=== PATIENT | male | born 1945 | race Caucasian/White ===

== ENCOUNTER 2018-01-01 20:30 | Emergency (ER) | payer OTHER ==
[2018-01-01] MEDS ORDERED: HYDROCODONE/APAP 10/325 TAB ONE (21:15)
--- NOTE | 2018-01-01 23:59 | ER ---
Nurse's Notes [facility] Name: Luiz Jeffery Age: 72 yrs Sex: Male : 1945 Arrival Date: 01/01/2018 Time: 20:50 Bed 28 Private MD: Diagnosis: Fracture greater tuberosity right humerus. Contusion left knee Presentation: 01/01 20:51 Presenting complaint: EMS states: Pt missed a step and fell at restaurant, landed on tl2 right arm, possible deformity of right upper arm. Pt denies hitting head or LOC. Pt AOx4. Unable to lift right arm due to pain. Care prior to arrival: None. Mechanism of Injury: Fall from standing position. Trauma event details: Injury occurred in the [facility]. 20:51 Acuity: EMELINA 3 tl2 20:51 Method Of Arrival: EMS: [facility] tl2 20:59 Transition of care: patient was not received from another setting of care. Onset of tl2 symptoms was January 01, 2018 at 20:30. Historical: - Allergies: 20:57 No Known Allergies; tl2 - Home Meds: 20:57 Aspirin Oral [Active]; Furosemide Oral [Active]; pantoprazole Oral [Active]; Potassium tl2 Chloride Oral [Active]; Simvastatin Oral [Active]; Spiriva with HandiHaler inhalation [Active]; Spironolactone Oral [Active]; - PMHx: 20:57 COPD; esophageal cancer; CHF; tl2 - Immunization history: Last tetanus immunization: < 5 years ago. - Social history:: Smoking status: Patient/guardian denies using tobacco, the patient reports quitting approximately 4 years ago. Screenin:57 Abuse screen: Denies threats or abuse. Nutritional screening: No deficits noted. tl2 Tuberculosis screening: No symptoms or risk factors identified. Fall risk At risk due to injury. 20:57 Fall Risk Fall in past 12 months (25 points). tl2 Primary Survey: 20:57 A: Airway: patent. Breathing/Chest: Respiratory pattern: regular, Respiratory effort: tl2 spontaneous, unlabored, Breath sounds: clear, bilaterally. Chest inspection: symmetrical rise and fall of the chest. Circulation: Heart tones present. Skin color: pink. Disability Alert. 21:50 Reassessment Airway Airway Patent Breathing/Chest Respiratory pattern Regular tl2 Respiratory effort Spontaneous Unlabored Circulation Heart tones Present Disability Alert. Secondary Survey: 20:57 HEENT: No deficits noted. Gastrointestinal: No deficits noted. : No deficits noted. tl2 Musculoskeletal: Circulation, motion, and sensation intact. Bony deformity noted of right tricep. Assessment: 20:51 General: Appears in no apparent distress. uncomfortable, Behavior is calm, cooperative, tl2 appropriate for age. Pain: Complains of pain in right tricep Pain currently is 8 out of 10 on a pain scale. Quality of pain is described as aching, Aggravated by increased activity. Neuro: Level of Consciousness is awake, alert, obeys commands, Oriented to person, place, time, situation. Cardiovascular: Denies chest pain. Respiratory: Airway is patent Respiratory effort is even, unlabored, Respiratory pattern is regular, symmetrical. GI: No signs and/or symptoms were reported involving the gastrointestinal system. : No signs and/or symptoms were reported regarding the genitourinary system. Musculoskeletal: Circulation, motion, and sensation intact. Range of motion: limited in right shoulder. Injury Description: Deformity sustained to right tricep is concave. 22:04 Reassessment: Patient appears in no apparent distress at this time. Patient and/or tl2 family updated on plan of care and expected duration. Pain level reassessed. Patient is alert, oriented x 3, equal unlabored respirations, skin warm/dry/pink. 23:13 Reassessment: Patient appears in no apparent distress at this time. Patient and/or tl2 family updated on plan of care and expected duration. Pain level reassessed. Patient is alert, oriented x 3, equal unlabored respirations, skin warm/dry/pink. awaiting further orders. 01/02 00:14 Reassessment: Pt preferred sling to shoulder immobilizer. notified. tl2 00:34 Reassessment: Patient appears in no apparent distress at this time. Patient and/or tl2 family updated on plan of care and expected duration. Pain level reassessed. Patient is alert, oriented x 3, equal unlabored respirations, skin warm/dry/pink. Pt and family verbalized understanding of discharge instructions, need for follow up and prescription usage. Vital Signs: 01/01 20:57 BP 140 / 93; Pulse 76; Resp 18; Temp 98.4(O); Pulse Ox 97% on 3 lpm NC; Weight 108.86 tl2 kg; Height 5 ft. 7 in. (170.18 cm); Pain 8/10; 22:05 BP 114 / 73; Pulse 85; Resp 18; Pulse Ox 96% on 3 lpm NC; tl2 23:13 BP 121 / 77; Pulse 77; Resp 18; Pulse Ox 95% on 3 lpm NC; tl2 01/02 00:15 BP 118 / 83; Pulse 77; Resp 18; Pulse Ox 95% on 3 lpm NC; tl2 01/01 20:57 Body Mass Index 37.59 (108.86 kg, 170.18 cm) tl2 [place] Coma Score: 01/01 20:57 Eye Response: spontaneous(4). Verbal Response: oriented(5). Motor Response: obeys tl2 commands(6). Total: 15. 22:05 Eye Response: spontaneous(4). Verbal Response: oriented(5). Motor Response: obeys tl2 commands(6). Total: 15. Trauma Score (Adult): 20:57 Eye Response: spontaneous(1); Verbal Response: oriented(1); Motor Response: obeys tl2 commands(2); Systolic BP: > 89 mm Hg(4); Respiratory Rate: 10 to 29 per min(4); Talisha Score: 15; Trauma Score: 12 22:05 Eye Response: spontaneous(1); Verbal Response: oriented(1); Motor Response: obeys tl2 commands(2); Systolic BP: > 89 mm Hg(4); Respiratory Rate: 10 to 29 per min(4); Talisha Score: 15; Trauma Score: 12 ED Course: 20:50 Patient arrived in ED. tl2 20:50 Yelena Solorzano RN is Primary Nurse. tl2 20:53 Triage completed. tl2 20:55 Sam Wu MD is Attending Physician. pkl 20:57 Patient has correct armband on for positive identification. Placed in gown. Bed in low tl2 position. Call light in reach. Side rails up X2. Adult w/ patient. Oxygen administration via nasal cannula \T\ 3L/min. 20:57 Arm band placed on right wrist. tl2 20:57 Oxygen administration via nasal cannula \T\ 3L/min. tl2 21:00 Thermoregulation: warm blanket given to patient. tl2 21:52 X-ray completed. Portable x-ray completed in exam room. Patient tolerated procedure la2 well. 21:54 Shoulder Right (2 View) XRAY In Process Unspecified. EDMS 21:54 Knee Left 3 View XRAY In Process Unspecified. EDMS 22:54 Shoulder Right Wo Cont In Process Unspecified. EDMS 01/02 00:34 No provider procedures requiring assistance completed. Patient did not have IV access tl2 during this emergency room visit. Administered Medications: 01/01 21:00 Drug: [place] 10 mg-325 mg 1 tabs {Note: administered by Anamika Pardo RN.} Route: PO; tl2 22:00 Follow up: Response: No adverse reaction; Pain is decreased tl2 Intake: 01/02 00:36 PO: 0ml; Total: 0ml. tl2 Outcome: 01/01 23:59 Discharge ordered by . mell 01/02 00:34 Discharged to home via wheelchair, with family. tl2 Condition: stable Discharge instructions given to patient, family, Instructed on discharge instructions, follow up and referral plans. no driving heavy equipment, medication usage, Demonstrated understanding of instructions, follow-up care, medications, Prescriptions given X 1. 00:36 Patient's length of stay in the Emergency Department was greater than 2 hours. tl2 Patient's length of stay was extended due to staffing issues within the emergency department. 00:38 Patient left the ED. tl2 Signatures: Dispatcher [employer] Sam Franklin MD MD pkl Knox, Taylor, RN RN tl2 Maki Huertas la2
--- NOTE | 2018-01-01 23:59 | EDPHYS ---
Physician Documentation [facility] Name: Luiz Jeffery Age: 72 yrs Sex: Male : 1945 Arrival Date: 01/01/2018 Time: 20:50 Bed 28 Private MD: ED Physician Sam Wu HPI: 01/01 21:03 This 72 yrs old Male presents to ER via EMS with complaints of Fall Injury. pkl 21:03 Details of fall: The patient fell from an upright position, while walking. Onset: The pkl symptoms/episode began/occurred just prior to arrival. Associated injuries: The patient sustained right shoulder, left knee, abrasion, contusion, painful injury. Historical: - Allergies: 20:57 No Known Allergies; tl2 - Home Meds: 20:57 Aspirin Oral [Active]; Furosemide Oral [Active]; pantoprazole Oral [Active]; Potassium tl2 Chloride Oral [Active]; Simvastatin Oral [Active]; Spiriva with HandiHaler inhalation [Active]; Spironolactone Oral [Active]; - PMHx: 20:57 COPD; esophageal cancer; CHF; tl2 - Immunization history: Last tetanus immunization: < 5 years ago. - Social history:: Smoking status: Patient/guardian denies using tobacco, the patient reports quitting approximately 4 years ago. ROS: 21:03 Eyes: Negative for injury, pain, redness, and discharge, ENT: Negative for injury, pkl pain, and discharge, Neck: Negative for injury, pain, and swelling, Cardiovascular: Negative for chest pain, palpitations, and edema, Respiratory: Negative for shortness of breath, cough, wheezing, and pleuritic chest pain, Abdomen/GI: Negative for abdominal pain, nausea, vomiting, diarrhea, and constipation, Back: Negative for injury and pain, : Negative for injury, bleeding, discharge, and swelling, Neuro: Negative for headache, weakness, numbness, tingling, and seizure. 21:03 MS/extremity: Positive for contusion, pain, tenderness, of the right shoulder, pain and abrasion left knee. Exam: 21:03 Head/Face: Normocephalic, atraumatic. Eyes: Pupils equal round and reactive to light, pkl extra-ocular motions intact. Lids and lashes normal. Conjunctiva and sclera are non-icteric and not injected. Cornea within normal limits. Periorbital areas with no swelling, redness, or edema. ENT: Nares patent. No nasal discharge, no septal abnormalities noted. Tympanic membranes are normal and external auditory canals are clear. Oropharynx with no redness, swelling, or masses, exudates, or evidence of obstruction, uvula midline. Mucous membranes moist. Neck: Trachea midline, no thyromegaly or masses palpated, and no cervical lymphadenopathy. Supple, full range of motion without nuchal rigidity, or vertebral point tenderness. No Meningismus. Chest/axilla: Normal chest wall appearance and motion. Nontender with no deformity. No lesions are appreciated. Cardiovascular: Regular rate and rhythm with a normal S1 and S2. No gallops, murmurs, or rubs. Normal PMI, no JVD. No pulse deficits. Respiratory: Lungs have equal breath sounds bilaterally, clear to auscultation and percussion. No rales, rhonchi or wheezes noted. No increased work of breathing, no retractions or nasal flaring. Abdomen/GI: Soft, non-tender, with normal bowel sounds. No distension or tympany. No guarding or rebound. No evidence of tenderness throughout. Back: No spinal tenderness. No costovertebral tenderness. Full range of motion. Neuro: Awake and alert, GCS 15, oriented to person, place, time, and situation. Cranial nerves II-XII grossly intact. Motor strength 5/5 in all extremities. Sensory grossly intact. Cerebellar exam normal. Normal gait. 21:03 Musculoskeletal/extremity: Extremities: grossly normal except: noted in the right shoulder: pain, tenderness, noted in the left knee: contusion, pain, abrasion. Vital Signs: 20:57 BP 140 / 93; Pulse 76; Resp 18; Temp 98.4(O); Pulse Ox 97% on 3 lpm NC; Weight 108.86 tl2 kg; Height 5 ft. 7 in. (170.18 cm); Pain 8/10; 22:05 BP 114 / 73; Pulse 85; Resp 18; Pulse Ox 96% on 3 lpm NC; tl2 23:13 BP 121 / 77; Pulse 77; Resp 18; Pulse Ox 95% on 3 lpm NC; tl2 01/02 00:15 BP 118 / 83; Pulse 77; Resp 18; Pulse Ox 95% on 3 lpm NC; tl2 0331 20:57 Body Mass Index 37.59 (108.86 kg, 170.18 cm) tl2 Talisha Coma Score: 01/01 20:57 Eye Response: spontaneous(4). Verbal Response: oriented(5). Motor Response: obeys tl2 commands(6). Total: 15. 22:05 Eye Response: spontaneous(4). Verbal Response: oriented(5). Motor Response: obeys tl2 commands(6). Total: 15. Trauma Score (Adult): 20:57 Eye Response: spontaneous(1); Verbal Response: oriented(1); Motor Response: obeys tl2 commands(2); Systolic BP: > 89 mm Hg(4); Respiratory Rate: 10 to 29 per min(4); [place] Score: 15; Trauma Score: 12 22:05 Eye Response: spontaneous(1); Verbal Response: oriented(1); Motor Response: obeys tl2 commands(2); Systolic BP: > 89 mm Hg(4); Respiratory Rate: 10 to 29 per min(4); Talisha Score: 15; Trauma Score: 12 MDM: 20:55 Patient medically screened. pkl 23:56 Data reviewed: vital signs, nurses notes, radiologic studies, CT scan, plain films. pkl 01/01 21:02 Order name: Shoulder Right (2 View) XRAY pkl 01/01 21:02 Order name: Knee Left 3 View XRAY pkl 01/01 22:09 Order name: Shoulder Right Wo Cont EDMS 01/02 00:13 Order name: Sling; Complete Time: 00:15 pkl Administered Medications: 21:00 Drug: [place] 10 mg-325 mg 1 tabs {Note: administered by Anamika Pardo RN.} Route: PO; tl2 22:00 Follow up: Response: No adverse reaction; Pain is decreased tl2 Disposition: 01/01/18 23:59 Discharged to Home. Impression: Fracture greater tuberosity right humerus. Contusion left knee. - Condition is Stable. - Prescriptions for Tylenol- Codeine #3 300-30 mg Oral Tablet - take 1 tablet by ORAL route every 6 hours As needed; 30 tablet. - Medication Reconciliation Form, Thank You Letter, Antibiotic Education, Prescription Opioid Use form. - Follow up: Private Physician; When: 2 - 3 days; Reason: Re-evaluation by your physician. - Problem is new. - Symptoms have improved. Signatures: Dispatcher [employer] Sam Franklin MD MD pkAnamika Ring RN RN bb Yelena Solorzano RN RN tl2
[2018-01-02 00:50] VITALS: TEMP 98.4
[2018-01-02 00:52] VITALS: O2SAT 95
[2018-01-02 00:54] VITALS: BP 118/83
--- NOTE | 2018-01-02 08:18 | RAD REPORT ---
EXAM DESCRIPTION: CT - Shoulder Right Wo Cont - 01/02/2018 3:30 am CLINICAL HISTORY: Right shoulder pain status post fall COMPARISON: X-ray on the same date TECHNIQUE: Computed axial tomography of the right shoulder was obtained with coronal and sagittal re construction performed. A preliminary report was generated by virtual radiologic in review prior to this dictation All CT scans are performed using dose optimization technique as appropriate and may include automated exposure control or mA/KV adjustment according to patient size. FINDINGS: A minimally displaced comminuted fracture involves the greater tubercle of the right humer us. The fracture extends inferiorly to involve the humeral neck. No dislocation is seen. Moderate osteoarthritis involves the acromioclavicular joint IMPRESSION: A minimally displaced comminuted fracture involves the greater tubercle of the right hum erus. The fracture extends inferiorly to involve the humeral neck.
--- NOTE | 2018-01-02 08:19 | RAD REPORT ---
EXAM DESCRIPTION: RAD - Shoulder Right 2 View - 01/01/2018 9:54 pm CLINICAL HISTORY: Right shoulder pain status post fall FINDINGS: A minimally displaced comminuted fracture involves the greater tubercle of the right humer us. The fracture extends inferiorly to involve the humeral neck. No dislocation is seen
--- NOTE | 2018-01-02 08:20 | RAD REPORT ---
EXAM DESCRIPTION: RAD - Knee Left 3 View - 01/01/2018 9:56 pm CLINICAL HISTORY: Left knee pain status post injury FINDINGS: No fracture or dislocation is seen. Moderate osteoarthritis involves the medial compartment
== END 2018-01-02 00:38 | disposition home or self-care (01) ==
LOC: ER 20:30
DX: S42.251A Displaced fracture of greater tuberosity of right humerus, initial encounter for closed fracture (principal); S80.02XA Contusion of left knee, initial encounter; I50.9 Heart failure, unspecified; J44.9 Chronic obstructive pulmonary disease, unspecified; W18.30XA Fall on same level, unspecified, initial encounter; Y93.89 Activity, other specified; Y92.511 Restaurant or cafe as the place of occurrence of the external cause
CPT/HCPCS: 73200; 99284

== ENCOUNTER 2018-03-27 05:56 | Inpatient (IN) | payer OTHER ==
[2018-03-27] MEDS ORDERED: ALBUTEROL 2.5 MG/3 ML NEB SOL ONE (06:27)
[2018-03-27] MEDS ORDERED: METHYLPREDNISOLONE 125 MG INJ ONE (06:27)
[2018-03-27] MEDS ORDERED: IPRATROPIUM BROM 0.5MG/2.5ML ONE (06:28)
[2018-03-27 06:41] LABS: Absolute Lymphocytes (CBC) 1.6 K/uL (0.7-4.9); Absolute Monocytes 0.7 K/uL (0.1-1.3); Absolute Neutrophil 12.4 K/uL (1.8-8.0); Basophils % 0.3 % (0-1.3); Eosinophils % 1.8 % (0-4.4); Hematocrit 44.9 % (39.6-49.0); Lymphocytes % 10.5 % (15.3-44.8); MCH 30.5 pg (27.0-35.0); MPV 8.6 fL (7.6-11.3); Monocytes % 4.6 % (3.3-12.3); RBC Red Blood Cell Count 4.78 M/uL (4.33-5.43)
[2018-03-27 07:00] LABS: Albumin 3.4 g/dL (3.4-5.0); Bilirubin Direct 0.1 mg/dL (0-0.2); Bilirubin Total 0.6 mg/dL (0.2-1.0); Magnesium 2.2 mg/dL (1.8-2.4); Potassium 4.1 mmol/L (3.5-5.1); Protein, Total 7.9 g/dL (6.4-8.2)
[2018-03-27 07:20] LABS: Protime INR 1.03
[2018-03-27] MEDS ORDERED: LEVALBUTEROL 1.25 MG/3 ML NEB ONE ×2 (07:43→10:11)
[2018-03-27] MEDS ORDERED: Levofloxacin500mg IV 500 MG/100 ML BAG IV ONE (07:43)
[2018-03-27] MEDS ORDERED: PANTOPRAZOLE 40 MG INJ ONE (09:05)
[2018-03-27] MEDS ORDERED: ACETAMINOPHEN 325 MG TABLET ONE (09:05)
[2018-03-27] MEDS ORDERED: NA CHLORIDE 0.9% 1,000 ML ONE (09:05)
--- NOTE | 2018-03-27 09:05 | EDPHYS ---
Physician Documentation [facility] Name: Luiz Jeffery Age: 72 yrs Sex: Male : 1945 Arrival Date: 03/27/2018 Time: 05:57 Bed 6 Private MD: Jean Claude Foster ED Physician Chad Baird HPI: 03/27 06:00 This 72 yrs old Male presents to ER via Unassigned with complaints of ps1 Breathing Difficulty. 06:00 hx of COPD, CHF, Afib BIBEMS 2/2 BLANCA. x2 [employer]ES. SPO2 65% RA. + ASA - NOAC. Refused ps1 BiPap. Perioral cyanosis. - fever + cough- non productive. Historical: - Allergies: 06:16 No Known Allergies; aa1 - Home Meds: 06:16 Aspirin Oral [Active]; Furosemide Oral [Active]; pantoprazole Oral [Active]; Potassium aa1 Chloride Oral [Active]; Spiriva with HandiHaler inhalation [Active]; Spironolactone Oral [Active]; - PMHx: 06:16 CHF; COPD; esophageal cancer; aa1 - Immunization history:: Flu vaccine is up to date. - Social history:: Smoking status: Patient/guardian denies using tobacco. - Ebola Screening: : Patient denies exposure to infectious person Patient denies travel to an Ebola-affected area in the 21 days before illness onset. ROS: 06:00 Constitutional: Negative for fever, chills, and weight loss, Eyes: Negative for injury, ps1 pain, redness, and discharge, Abdomen/GI: Negative for abdominal pain, nausea, vomiting, diarrhea, and constipation, Back: Negative for injury and pain, MS/Extremity: Negative for injury and deformity, Skin: Negative for injury, rash, and discoloration, Neuro: Negative for headache, weakness, numbness, tingling, and seizure. 06:00 Cardiovascular: Positive for palpitations. 06:00 Respiratory: Positive for cough, shortness of breath, wheezing. Exam: 06:00 Constitutional: This is a well developed, well nourished patient who is awake, alert, ps1 and in no acute distress. Head/Face: Normocephalic, atraumatic. Eyes: Pupils equal round and reactive to light, extra-ocular motions intact. Lids and lashes normal. Conjunctiva and sclera are non-icteric and not injected. Abdomen/GI: Soft, non-tender, with normal bowel sounds. No distension or tympany. No guarding or rebound. No evidence of tenderness throughout. MS/ Extremity: Pulses equal, no cyanosis. Neurovascular intact. Full, normal range of motion. Neuro: Awake and alert, GCS 15, oriented to person, place, time, and situation. Cranial nerves II-XII grossly intact. Sensory grossly intact. 06:00 Chest/axilla: Inspection: normal, Palpation: is normal. 06:00 Cardiovascular: Rate: tachycardic, Rhythm: irregular, Pulses: no pulse deficits are appreciated. 06:00 Respiratory: moderate respiratory distress is noted, Respirations: labored breathing, Breath sounds: wheezing: expiratory tachypnea. Vital Signs: 05:55 BP 135 / 97; Pulse 126; Resp 48; Pulse Ox 66% on R/A; Weight 108.86 kg; Height 5 ft. 7 aa1 in. (170.18 cm); Pain 0/10; 05:59 Pulse Ox 94% on Non-rebreather mask; aa1 06:17 BP 125 / 74; Pulse 117; Resp 32; Temp 101.2(O); Pulse Ox 96% on Non-rebreather mask; aa1 06:39 BP 100 / 56; Pulse 119; Resp 26; Pulse Ox 94% on Nebulizer Mask; tl2 07:14 BP 132 / 100; Pulse 120; Resp 25; Pulse Ox 93% on Nebulizer Mask; hj 07:28 BP 111 / 75; Pulse 122; Resp 24; Pulse Ox 92% on 3 lpm NC; hj 07:46 BP 115 / 75; Pulse 123; Resp 25; Pulse Ox 94% on Nebulizer Mask; hj 08:29 BP 123 / 82; Pulse 118; Resp 25; Pulse Ox 93% on 3 lpm NC; hj 09:12 BP 100 / 69; Pulse 113; Resp 22; Pulse Ox 95% on 3 lpm NC; hj 10:42 BP 110 / 70; Pulse 117; Resp 22; Pulse Ox 95% on 3 lpm NC; hj 10:58 BP 115 / 58; Pulse 114; Resp 20; Temp 98.4(O); Pulse Ox 95% on 3 lpm NC; hj 05:55 Body Mass Index 37.59 (108.86 kg, 170.18 cm) aa1 MDM: 06:09 Patient medically screened. ps1 09:11 Data reviewed: vital signs, nurses notes, lab test result(s), EKG, radiologic studies, [facility] CT scan, plain films. 03/27 06:37 Order name: Basic Metabolic Panel; Complete Time: 07:03 EDMS 03/27 06:37 Order name: Liver (Hepatic) Function; Complete Time: 07:03 EDMS 03/27 06:37 Order name: Magnesium; Complete Time: 07:03 EDDC 03/27 06:37 Order name: Troponin (Emerg Dept Use Only); Complete Time: 07:07 EDMS 03/27 06:37 Order name: CBC with Automated Diff; Complete Time: 07:22 EDDC 03/27 06:37 Order name: Protime (+INR); Complete Time: 07:38 EDDC 03/27 07:23 Order name: Blood Culture Adult (2) [facility] 03/27 07:23 Order name: Lactate; Complete Time: 08:56 [facility] 03/27 07:23 Order name: CXR XRAY; Complete Time: 10:02 [facility] 03/27 08:50 Order name: Basic Metabolic Panel [facility] 03/27 08:50 Order name: CBC with Diff [facility] 03/27 08:50 Order name: Ckmb [facility] 03/27 08:50 Order name: CPK [facility] 03/27 08:50 Order name: LFT's [facility] 03/27 08:50 Order name: Magnesium [facility] 03/27 08:50 Order name: PT-INR [facility] 03/27 08:50 Order name: Ptt, Activated [facility] 03/27 08:50 Order name: Troponin (emerg Dept Use Only) [facility] 03/27 08:50 Order name: Lipase [facility] 03/27 08:54 Order name: CT Chest, Abdomen, Pelvis - W/Contrast: iv no oral; Complete Time: 09:50 [facility] 03/27 08:54 Order name: Flu [facility] 03/27 08:54 Order name: BNP [facility] 03/27 09:11 Order name: Echo with Doppler [facility] 03/27 06:07 Order name: EKG; Complete Time: 07:00 [facility] 03/27 06:07 Order name: Cardiac monitoring; Complete Time: 06:13 [facility] 03/27 06:07 Order name: EKG - Nurse/Tech; Complete Time: 06:13 [facility] 03/27 06:07 Order name: IV Saline Lock; Complete Time: 06:13 ps1 03/27 06:07 Order name: Labs collected and sent; Complete Time: 06:13 ps1 03/27 06:07 Order name: O2 Per Protocol; Complete Time: 06:13 ps1 03/27 06:07 Order name: O2 Sat Monitoring; Complete Time: 06:13 ps1 03/27 07:36 Order name: Labs - recollect needed; Complete Time: 08:14 bd 03/27 09:11 Order name: CONS Physician Consult EDMS EC:11 Rate is 120 beats/min. Rhythm is regular. QRS [place] is Normal. MT interval is prolonged ps1 at 164 msec. QRS interval is normal. QT interval is normal. No Q waves. T waves are Normal. No ST changes noted. Clinical impression: Sinus tachycardia and PVC. Interpreted by me. Administered Medications: 06:32 Drug: SOLU-Medrol 125 mg Route: IVP; Site: left antecubital; tl2 07:24 Follow up: Response: No adverse reaction hj 06:32 Drug: DuoNeb (3:1) (2.5 mg - 0.5 mg) 3 ml Route: Nebulizer; tl2 07:23 Follow up: Response: No adverse reaction hj 07:40 Drug: Xopenex 2.5 mg Route: Inhalation; hj 08:14 Drug: levofloxacin 500 mg Volume: 100 ml; Route: IVPB; Infused Over: 60 mins; Site: hj left antecubital; 10:44 Follow up: IV Status: Completed infusion hj 08:55 CANCELLED (Duplicate Order): NS 0.9% 500 ml IV at bolus once gina 09:01 Drug: ProTONIX 40 mg Route: IVP; Site: left hand; hj 09:14 Follow up: Response: No adverse reaction hj 09:01 Drug: Tylenol 650 mg Route: PO; hj 09:14 Follow up: Response: No adverse reaction; Pain is decreased hj 09:01 Drug: NS 0.9% 1000 ml Route: IV; Rate: 125 ml/hr; Site: left hand; hj 09:13 Follow up: IV Status: Infusion continued upon admission hj 10:03 Drug: Xopenex 2.5 mg Route: Inhalation; Disposition: 03/27/18 09:04 Hospitalization ordered by Luz aLnd for Inpatient Admission. Preliminary diagnosis are Dyspnea, Chronic obstructive pulmonary disease with (acute) exacerbation, Fever, unspecified, Hypoxemia, Pneumonia due to other specified bacteria. - Bed requested for Telemetry/MedSurg (Inpatient). - Status is Inpatient Admission. - Condition is Fair. - Problem is new. - Symptoms have improved. UTI on Admission? No Signatures: Dispatcher [employer] EDDC Elizabeth Wilks Allyson Blue, RN RN Diandra Pro RN RN aa1 Chad Baird MD MD cha Joaquin, Henry, RN RN hj Knox, Taylor RN RN tl2 Jonathan English MD MD ps1 Corrections: (The following items were deleted from the chart) 07:36 07:00 CBC+H.LAB.BRZ ordered. EDMS EDMS 07:36 07:00 PROTIME (+INR)+COAG.LAB.BRZ ordered. EDDC EDMS 07:37 07:00 BASIC METABOLIC PANEL+C.LAB.BRZ ordered. EDDC EDDC 07:37 07:00 HEPATIC FUNCTION+C.LAB.BRZ ordered. EDDC EDMS 07:37 07:00 MAGNESIUM+C.LAB.BRZ ordered. EDDC EDMS 07:37 07:00 TROPONIN (EMERG DEPT USE ONLY)+C.LAB.BRZ ordered. EDDC EDDC 08:55 08:55 NS 0.9% 500 ml IV at bolus once ordered. gina gina 10:40 09:04 Hospitalization Ordered by Luz Land MD for Inpatient Admission. Preliminary dw diagnosis is Dyspnea; Chronic obstructive pulmonary disease with (acute) exacerbation; Fever, unspecified; Hypoxemia; Pneumonia due to other specified bacteria. Bed requested for Telemetry/MedSurg (Inpatient). Status is Inpatient Admission. Condition is Fair. Problem is new. Symptoms have improved. UTI on Admission? No. gina 11:14 10:40 03/27/2018 09:04 Hospitalization Ordered by Luz Land MD for Inpatient hj Admission. Preliminary diagnosis is Dyspnea; Chronic obstructive pulmonary disease with (acute) exacerbation; Fever, unspecified; Hypoxemia; Pneumonia due to other specified bacteria. Bed requested for Telemetry/MedSurg (Inpatient). Status is Inpatient Admission. Condition is Fair. Problem is new. Symptoms have improved. UTI on Admission? No. dw
--- NOTE | 2018-03-27 09:05 | ER ---
Nurse's Notes [facility] Name: Luiz Jeffery Age: 72 yrs Sex: Male : 1945 Arrival Date: 03/27/2018 Time: 05:57 Bed 6 Private MD: Jean Claude Foster Diagnosis: Dyspnea;Chronic obstructive pulmonary disease with (acute) exacerbation;Fever, unspecified;Hypoxemia;Pneumonia due to other specified bacteria Presentation: 03/27 05:55 Presenting complaint: Patient states: SOB for past couple days but became worse today. aa1 Reports hx of COPD and has been out of his medications bc he was on vacation. Upon arrival to ED pt states he refuses to wear BiPAP while here. Transition of care: patient was not received from another setting of care. Onset of symptoms was March 24, 2018. Risk Assessment: Do you want to hurt yourself or someone else? Patient reports no desire to harm self or others. Initial Sepsis Screen: Does the patient meet any 2 criteria? RR > 20 per min. HR > 90 bpm. Does the patient have a suspected source of infection? No. Patient's initial sepsis screen is negative. Care prior to arrival: Medication(s) given: Albuterol Neb x 2, Atrovent Neb x 2. 05:55 Method Of Arrival: EMS: [facility] aa 05:55 Acuity: EMELINA 2 aa1 Triage Assessment: 07:00 General: Appears in no apparent distress. uncomfortable, Behavior is cooperative, hj appropriate for age, anxious. Respiratory: Onset: The symptoms/episode began/occurred , the patient has severe shortness of breath. 07:00 Pain: Denies pain. EENT: No signs and/or symptoms were reported regarding the EENT hj system. Neuro: Level of Consciousness is awake, alert, obeys commands, Oriented to person, place, time, situation, Appropriate for age. Cardiovascular: Capillary refill < 3 seconds Patient's skin is warm and dry. Respiratory: Airway is patent Respiratory effort is even, unlabored, Respiratory pattern is regular, symmetrical. Respiratory: GI: No signs and/or symptoms were reported involving the gastrointestinal system. : No signs and/or symptoms were reported regarding the genitourinary system. Derm: No signs and/or symptoms reported regarding the dermatologic system. Musculoskeletal: No signs and/or symptoms reported regarding the musculoskeletal system. Historical: - Allergies: 06:16 No Known Allergies; aa1 - Home Meds: 06:16 Aspirin Oral [Active]; Furosemide Oral [Active]; pantoprazole Oral [Active]; Potassium aa1 Chloride Oral [Active]; Spiriva with HandiHaler inhalation [Active]; Spironolactone Oral [Active]; - PMHx: 06:16 CHF; COPD; esophageal cancer; aa1 - Immunization history:: Flu vaccine is up to date. - Social history:: Smoking status: Patient/guardian denies using tobacco. - Ebola Screening: : Patient denies exposure to infectious person Patient denies travel to an Ebola-affected area in the 21 days before illness onset. Screenin:00 Abuse screen: Denies threats or abuse. Denies injuries from another. Nutritional aa1 screening: No deficits noted. Tuberculosis screening: No symptoms or risk factors identified. Fall Risk None identified. Assessment: 06:00 General: Appears distressed, Behavior is appropriate for age, anxious. Pain: Denies aa1 pain. Neuro: Level of Consciousness is awake, alert, obeys commands, Oriented to person, place, time, situation, Moves all extremities. Speech is normal. Cardiovascular: Heart tones S1 S2 present Rhythm is regular. Respiratory: Reports shortness of breath at rest air hunger Airway is patent Respiratory effort is labored, gasping, Respiratory pattern is symmetrical, tachypnea Breath sounds are diminished bilaterally. GI: No signs and/or symptoms were reported involving the gastrointestinal system. : No signs and/or symptoms were reported regarding the genitourinary system. EENT: No signs and/or symptoms were reported regarding the EENT system. Derm: Skin is intact, is healthy with good turgor, Skin is pink, warm \T\ dry. Musculoskeletal: Circulation, motion, and sensation intact. Capillary refill < 3 seconds. 06:23 Reassessment: Patient appears in no apparent distress at this time. Patient states aa1 feeling better. Patient states symptoms have improved. Reassessment: Pt reports feeling much better after being placed on NRB mask. Respiratory: Respiratory effort is even, unlabored, Respiratory pattern is tachypnea. 07:00 General: Appears in no apparent distress. uncomfortable, Behavior is calm, cooperative, hj appropriate for age. Pain: Denies pain. Neuro: Level of Consciousness is awake, alert, obeys commands, Oriented to person, place, time, situation, Moves all extremities. Speech is normal. Cardiovascular: Heart tones S1 S2 present. Respiratory: Reports shortness of breath at rest Airway is patent Respiratory effort is even, labored, Respiratory pattern is regular, symmetrical. GI: No signs and/or symptoms were reported involving the gastrointestinal system. : No signs and/or symptoms were reported regarding the genitourinary system. EENT: No signs and/or symptoms were reported regarding the EENT system. Musculoskeletal: Circulation, motion, and sensation intact. Capillary refill < 3 seconds. 08:00 Reassessment: Patient and/or family updated on plan of care and expected duration. Pain hj level reassessed. Patient is alert, oriented x 3, equal unlabored respirations, skin warm/dry/pink. awaiting results and POC;. 09:12 Reassessment: Patient and/or family updated on plan of care and expected duration. Pain hj level reassessed. Patient is alert, oriented x 3, equal unlabored respirations, skin warm/dry/pink. for admit;. 10:43 Reassessment: going to 410;. hj Vital Signs: 05:55 BP 135 / 97; Pulse 126; Resp 48; Pulse Ox 66% on R/A; Weight 108.86 kg; Height 5 ft. 7 aa1 in. (170.18 cm); Pain 0/10; 05:59 Pulse Ox 94% on Non-rebreather mask; aa1 06:17 BP 125 / 74; Pulse 117; Resp 32; Temp 101.2(O); Pulse Ox 96% on Non-rebreather mask; aa1 06:39 BP 100 / 56; Pulse 119; Resp 26; Pulse Ox 94% on Nebulizer Mask; tl2 07:14 BP 132 / 100; Pulse 120; Resp 25; Pulse Ox 93% on Nebulizer Mask; hj 07:28 BP 111 / 75; Pulse 122; Resp 24; Pulse Ox 92% on 3 lpm NC; hj 07:46 BP 115 / 75; Pulse 123; Resp 25; Pulse Ox 94% on Nebulizer Mask; hj 08:29 BP 123 / 82; Pulse 118; Resp 25; Pulse Ox 93% on 3 lpm NC; hj 09:12 BP 100 / 69; Pulse 113; Resp 22; Pulse Ox 95% on 3 lpm NC; hj 10:42 BP 110 / 70; Pulse 117; Resp 22; Pulse Ox 95% on 3 lpm NC; hj 10:58 BP 115 / 58; Pulse 114; Resp 20; Temp 98.4(O); Pulse Ox 95% on 3 lpm NC; hj 05:55 Body Mass Index 37.59 (108.86 kg, 170.18 cm) aa1 ED Course: 05:55 Arm band placed on right wrist. Patient placed in an exam room, on a stretcher. aa1 05:56 Oxygen administration via non-rebreather mask \T\ 15L/min Response to oxygen therapy: aa1 symptoms improved. 05:57 Patient arrived in ED. ds1 05:57 Jean Claude Foster MD is Private Physician. ds1 06:00 Jonathan English MD is Attending Physician. ps1 06:00 Patient has correct armband on for positive identification. Placed in gown. Bed in low aa1 position. Call light in reach. Side rails up X2. classroom monitor on. Pulse ox on. NIBP on. 06:06 Triage completed. aa1 06:14 Inserted saline lock: 22 gauge in left antecubital area, using aseptic technique. Blood tl2 collected. 07:11 Hernando Hernandez RN is Primary Nurse. hj 07:37 Attending Physician role handed off by Jonathan English MD gina 07:37 Chad Baird MD is Attending Physician. gina 07:47 X-ray completed. Portable x-ray completed in exam room. Patient tolerated procedure la2 well. 07:48 CXR XRAY In Process Unspecified. EDMS 08:08 First set of blood cultures drawn Second set of blood cultures drawn by nd. ag 08:20 Inserted saline lock: 22 gauge in left hand, using aseptic technique. hj 08:39 Missed attempt(s): 20 gauge in right antecubital area. Bleeding controlled, band aid ag applied, catheter tip intact. 09:00 Luz Land MD is Hospitalizing Provider. gina 09:22 CT completed. Patient moved to CT via stretcher. Patient moved back from CT. cw1 09:24 CT Chest, Abdomen, Pelvis - W/Contrast: iv no oral In Process Unspecified. EDMS Administered Medications: 06:32 Drug: SOLU-Medrol 125 mg Route: IVP; Site: left antecubital; tl2 07:24 Follow up: Response: No adverse reaction hj 06:32 Drug: DuoNeb (3:1) (2.5 mg - 0.5 mg) 3 ml Route: Nebulizer; tl2 07:23 Follow up: Response: No adverse reaction hj 07:40 Drug: Xopenex 2.5 mg Route: Inhalation; hj 08:14 Drug: levofloxacin 500 mg Volume: 100 ml; Route: IVPB; Infused Over: 60 mins; Site: hj left antecubital; 10:44 Follow up: IV Status: Completed infusion hj 08:55 CANCELLED (Duplicate Order): NS 0.9% 500 ml IV at bolus once gina 09:01 Drug: ProTONIX 40 mg Route: IVP; Site: left hand; hj 09:14 Follow up: Response: No adverse reaction hj 09:01 Drug: Tylenol 650 mg Route: PO; hj 09:14 Follow up: Response: No adverse reaction; Pain is decreased hj 09:01 Drug: NS 0.9% 1000 ml Route: IV; Rate: 125 ml/hr; Site: left hand; hj 09:13 Follow up: IV Status: Infusion continued upon admission hj 10:03 Drug: Xopenex 2.5 mg Route: Inhalation; Outcome: 09:04 Decision to Hospitalize by Provider. [facility] 11:14 Patient left the ED. Signatures: Dispatcher [employer] EDDiandra Dye RN RN aa1 Chad Baird MD MD cha Sanford, Demi ds1 Janie Mendoza cw1 Demetrice Gardner Henry, RN RN Yelena Solorzano RN RN tl2 Maki Huertas Phillip, MD MD ps1
--- NOTE | 2018-03-27 09:45 | RAD REPORT ---
EXAM DESCRIPTION: CT - Chest Abdomen Pelvis W Cont - 03/27/2018 9:24 am CLINICAL HISTORY: Cough, shortness of breath, abdominal pain, esophageal carcinoma history, COPD and CHF history COMPARISON: Chest films same date TECHNIQUE: Following dynamic enhancement using 100 milliliters nonionic IV contrast, axial imaging o f the chest, abdomen and pelvis was performed. Biphasic technique was utilized through the abdomen. Oral contrast was administered. All CT scans are performed using dose optimization technique as appropriate and may include automated exposure control or mA/KV adjustment according to patient size. FINDINGS: Extensive interstitial thickening is present. In a patient with COPD this is most likely f ibrosis. Numerous bulla and bleb noted in the upper lung pratt. Interstitial markings are slightly m ore pronounced in the lower left lung field. Trace amounts of alveolar opacification present. Early l eft lung base pneumonia cannot be excluded. No pleural effusion, pleural thickening or pneumothorax. No significant aortic or pulmonary arterial tree finding. Mediastinal and hilar regions show no mass or abnormal lymphadenopathy. Small lymph nodes present are probably reactive. No chest wall mass or a xillary lymphadenopathy. Esophagus is not grossly abnormal. Patient has a moderately large hiatal her nori. This contains mostly fat. Approximately 20% of the stomach is intrathoracic. This is possibly a postsurgical affect if the distal esophagus has been partially resected. Surgical history for the pat ient is unknown. Active process near the GE junction is not seen. The liver, spleen and pancreas show no suspicious findings. Small liver cyst present near the gallbla dder fossa. At least 1 gallstone is present near the neck. No active gall bladder process suspected. Biliary tree is normal. Atrophy or fatty infiltration of the pancreatic parenchyma is present. No per ipancreatic stranding. Symmetric renal function is seen with no mass or hydronephrosis. No adrenal abnormalities. No pyelone phritis or acute renal parenchymal process. Lateral upper pole right renal cyst is present at 3.7 cm. A large exophytic lower pole left renal cyst is present 12 cm in diameter. No suspicious characteris tics. Partially filled urinary bladder shows no suspicious finding. Prostate gland and seminal vesicl es show no suspicious findings. No gastric wall thickening or mass identifiable. No acute large or small bowel finding. No appendicit is. Minimal diverticulosis seen in the tortuous and redundant sigmoid colon. No active GI process see n. No free air, free fluid or inflammatory stranding. No mass or bulky lymphadenopathy. A 2 centimeter f at only umbilical hernia is present. Small fat only left inguinal hernia present. Disc and bony degenerative changes are present. No acute or destructive bone process. Vascular calcif ications without acute finding. IMPRESSION: Prominent fibro emphysematous changes with no baseline CT for comparison. The extent of disease could mask acute infiltrate, particularly in the lower left lung field. No large mass or cons olidation. Patient has small reactive type mediastinal and hilar lymph nodes. No clearly malignant or pathologic mediastinal, hilar or lung parenchymal process. Patient has chronic abdominal and pelvic findings as detailed. No acute or active process seen.
--- NOTE | 2018-03-27 09:58 | RAD REPORT ---
EXAM DESCRIPTION: RAD - Chest Single View - 03/27/2018 7:48 am CLINICAL HISTORY: Worsening shortness of breath, COPD COMPARISON: July 2017 TECHNIQUE: AP portable chest image was obtained 0736 hours . FINDINGS: Lung volumes are low. This accentuates the patient has significant underlying interstitial lung disease. Heart and vasculature are prominent and probably increased over baseline. Mediastinum is widened by shallow inspiration, body habitus, portable technique and slight rotation. No pneumotho rax or large pleural effusion. No gross bony abnormality seen. No acute aortic findings suspected. IMPRESSION: Extensive interstitial fibrotic lung disease accentuated by shallow inspiration. Heart size and vasculature are increased slightly from the comparison. Patient has a mixed pattern. Mild CHF/ volume overload is certainly possible and the patient could cabrera ve a superimposed lower left lung field primarily interstitial pneumonia.
[2018-03-27] MEDS ORDERED: ACETAMINOPHEN 500 MG TAB PO PRN (10:12)
[2018-03-27] MEDS ORDERED: ONDANSETRON 4 MG/2 ML VIAL IV PRN (10:12)
[2018-03-27 13:14] VITALS: BMI 35.4
[2018-03-27] MEDS: LEVALBUTEROL 0.63 MG/3 ML NEB NEB SCH ×2 (13:22→19:34)
[2018-03-27] MEDS: IPRATROPIUM BROM 0.5MG/2.5ML NEB SCH ×2 (13:22→19:34)
[2018-03-27 13:33] LABS: Absolute Lymphocytes (CBC) 0.3 K/uL (0.7-4.9); Absolute Monocytes 0.2 K/uL (0.1-1.3); Absolute Neutrophil 18.6 K/uL (1.8-8.0); Hematocrit 42.4 % (39.6-49.0); Lymphocytes % 1.5 % (15.3-44.8); MCH 30.4 pg (27.0-35.0); MCV 94.5 fL (80-100); MPV 8.9 fL (7.6-11.3); Monocytes % 0.9 % (3.3-12.3); RBC Red Blood Cell Count 4.48 M/uL (4.33-5.43)
[2018-03-27 13:34] LABS: Protime INR 1.1
[2018-03-27 13:58] LABS: ALT/SGPT 20 U/L (12-78); AST/SGOT 20 U/L (15-37); Albumin 3.1 g/dL (3.4-5.0); Alkaline Phosphatase 59 U/L (45-117); BUN Blood Urea Nitrogen 19 mg/dL (7-18); Bicarbonate 17 mmol/L (21-32); Bilirubin Direct 0.2 mg/dL (0-0.2); Bilirubin Total 0.5 mg/dL (0.2-1.0); CKMB Creatine Kinase MB < 1.0 ng/mL (0.3-3.6); Creatine Phosphokinase 112 U/L (39-308); Glucose Level 342 mg/dL (74-106); Lipase 77 U/L (73-393); Magnesium 2.2 mg/dL (1.8-2.4); Potassium 3.8 mmol/L (3.5-5.1); Protein, Total 7.4 g/dL (6.4-8.2); Sodium Level 134 mmol/L (136-145)
[2018-03-27] MEDS ORDERED: BENZONATATE 100 MG CAP PO PRN (14:25)
[2018-03-27] MEDS ORDERED: POTASSIUM CL SA 10 MEQ TAB PO ONE (16:00)
--- NOTE | 2018-03-27 17:43 | P.HP ---
Certification for Inpatient Patient admitted to: Observation With expected LOS: <2 Midnights Patient will require the following post-hospital care: None Practitioner: I am a practitioner with admitting privileges, knowledge of patient current condition, hospital course, and medical plan of care. Services: Services provided to patient in accordance with Admission requirements found in Title 42 Section 412.3 of the Code of Federal Regulations Patient History Date of Service: 03/27/18 Primary Care Provider: Dr Foster. Reason for admission: SOB History of Present Illness: Patient is a 72 old male with past medical history of COPD on home oxygen, coronary artery disease status post stent hyperlipidemia, gastroesophageal reflux disease, history or cancer, anemia, atrial fibrillation, congestive heart failure hypertension who presented to the ED with shortness of breath, high fevers and chills. Patient also reports some nausea vomiting x2. He states he has some cough with scant sputum production. Patient states him and his went to [place] for vacation where patient started getting sick, however they did not seek medical attention. They return couple of day ago and last night pt started having trouble breathing. Pt has not been taking any of his medication since wednesday. Patient denies any recent ill contacts. Patient' s symptoms are constant moderate and progressively worsening. The ER his vital signs showed hypoxia with oxygen saturation level of 75%. Patient refused BiPAP however was placed on a non-rebreather mask. Patient was given nebulizer treatments his workup revealed elevated WBC count, mildly elevated LA and Creatinine was 1.30 which is around his baseline. Chest x-ray showed pneumonia Patient was referred for admission for acute on chronic respiratory distress and pneumonia Allergies No Known Allergies Allergy (Verified 03/27/18 12:09) Home Medications: Fluticasone/Salmeterol [Advair 250/50 Diskus*] 1 puff IH DAILY 03/07/14 Aspirin [Low Dose Aspirin EC] 81 mg PO DAILY 12/22/14 Pantoprazole [Protonix Tab*] 40 mg PO DAILY 12/22/14 Simvastatin 20 mg PO BEDTIME 12/22/14 Spironolactone [Aldactone] 50 mg PO DAILY 12/22/14 Fluticasone/Vilanterol [Breo Ellipta 100-25 Mcg INH] 1 puff IH DAILY 06/07/17 Furosemide 40 mg PO DAILY 06/07/17 Potassium Chloride [Klor-Con M20] 1 tab PO DAILY 06/07/17 Tiotropium [place] [Spiriva] 1 puff IH DAILY 06/07/17 Ferrous Sulfate 1 tab PO DAILY 03/27/18 Fluticasone [Flonase 50mcg Nasal [place]] 2 sprays NS DAILY 03/27/18 Ropinirole HCl [Requip*] 1 tab PO BEDTIME 03/27/18 - Past Medical/Surgical History Has patient received pneumonia vaccine in the past: Yes Diabetic: No -: CHF -: COPD -: AFIB -: HTN -: [place] -: HIGH CHOLESTEROL -: ESOPHAGEAL CANCER -: CHF, A-fib -: asbestosis -: Exploratory esophageal surgery (February 2013) -: Esophageal cancer resection (March 2013) -: Esophageal ablation (June 28, 2013) -: heart stents -: catracho cataract - Family History Father -: Heart disease, Other (see notes) Notes: Heart attack Mother -: Heart disease, Other (see notes) Notes: CHF Brother -: Heart disease Notes: [place] X2 - Social History Smoking Status: Former smoker Alcohol use: No CD- Drugs: No Caffeine use: No Place of Residence: Home Review of Systems General: As per HPI Physical Examination - Vital Signs Temperature: 97.9 F Blood Pressure: 100/62 Pulse: 93 Respirations: 20 Pulse Ox (%): 92 - Physical Exam General: Alert, In no apparent distress, Oriented x3, Acute distress HEENT: Atraumatic Neck: Supple, 2+ carotid pulse no bruit, No LAD, Without JVD or thyroid abnormality Respiratory: Normal air movement, Expiratory wheezes, Inspiratory wheezes Cardiovascular: Regular rate/rhythm, Normal S1 S2 Gastrointestinal: Normal bowel sounds, No tenderness Musculoskeletal: No tenderness Integumentary: No rashes Neurological: Normal gait, Normal speech, Normal strength at 5/5 x4 extr, Normal tone, Normal affect Lymphatics: No axilla or inguinal lymphadenopathy - Studies Laboratory Data (last 24 hrs) 03/27/18 06:10: PT 12.1, INR 1.03 03/27/18 06:10: WBC 15.0 H, Hgb 14.6, Hct 44.9, Plt Count 187 03/27/18 06:10: Sodium 137, Potassium 4.1, BUN 18, Creatinine 1.30, Glucose 169 H, Magnesium 2.2, Total Bilirubin 0.6, AST 25, ALT 22, Alkaline Phosphatase 69 03/27/18 06:07: PT Cancelled, INR Cancelled 03/27/18 06:07: WBC Cancelled, Hgb Cancelled, Hct Cancelled, Plt Count Cancelled 03/27/18 06:07: Sodium Cancelled, Potassium Cancelled, BUN Cancelled, Creatinine Cancelled, Glucose Cancelled, Magnesium Cancelled, Total Bilirubin Cancelled, AST Cancelled, ALT Cancelled, Alkaline Phosphatase Cancelled Assessment and Plan - Problems (Diagnosis) (1) COPD with acute exacerbation Current Visit: No Status: Acute Plan: acute COPD exacerbation. Most Likely PNA and noncompliance with Medication. Viral vs Bacteria PNA -Duonebs, Steroids, Oxygen for now. At home Oxygen at 3L -IV levaquin till culture results -Procal pending. -xray with possible infiltrate (2) Pneumonia Onset Date: 06/08/17 Current Visit: No Status: Acute Plan: PNA, Viral Vs Bacteria -Pending Culture for blood and Sputum -IV levaquin for now -Repeat WBC and LA pending at this time Qualifiers: Pneumonia type: due to unspecified organism (3) Pulmonary fibrosis Onset Date: 06/08/17 Current Visit: No Status: Chronic (4) CHF (congestive heart failure) Onset Date: 06/08/17 Current Visit: No Status: Chronic Qualifiers: Heart failure type: combined systolic and diastolic Heart failure chronicity: chronic Qualified Code(s): I50.42 - Chronic combined systolic ( congestive) and diastolic (congestive) heart failure (5) Coronary disease Onset Date: 06/08/17 Current Visit: No Status: Chronic Qualifiers: Coronary Disease-Associated Artery/Lesion type: [place] artery [place] vs. transplanted heart: pokagon heart Associated angina: without angina Qualified Code(s): I25.10 - Atherosclerotic heart disease of pok[place] coronary artery without angina pectoris (6) Hyperlipidemia Onset Date: 06/08/17 Current Visit: No Status: Chronic Qualifiers: Hyperlipidemia type: mixed hyperlipidemia Qualified Code(s): E78.2 - Mixed hyperlipidemia (7) Hypertension Onset Date: 06/08/17 Current Visit: No Status: Chronic Qualifiers: Hypertension type: essential hypertension Discharge Plan: Home Plan to discharge in: 48 Hours - Advance Directives Does patient have a Living Will: No Does patient have a Durable POA for Healthcare: No - Code Status/Comfort Care Code Status Assessed: Yes Critical Care: No
[2018-03-27 18:32] LABS: Blood Morphology Comment NOT SEEN (NOT SEEN); Platelet Estimate ADEQ; Urine White Blood Cell Casts OK
[2018-03-27] MEDS: ROPINIROLE HCL 0.25 MG TAB PO SCH (20:33)
[2018-03-27] MEDS: ATORVASTATIN 10 MG TAB PO SCH (20:34)
[2018-03-27] MEDS: predniSONE 20 MG TAB PO SCH (20:34)
[2018-03-27] MEDS: BENZONATATE 100 MG CAP PO PRN (20:34)
[2018-03-27 21:39] LABS: Urine Appearance CLEAR; Urine Bilirubin NEGATIVE (NEG); Urine Blood NEGATIVE (NEG); Urine Color YELLOW; Urine Glucose 3+ (NEG); Urine Protein NEGATIVE (NEG); Urine Specific Gravity >=1.030 (1.005-1.030); Urine Urobilinogen 0.2 mg/dL (0.2-1.0)
[2018-03-27 21:45] LABS: Urine Microscopic Reflex NO UMIC
[2018-03-28] MEDS: LEVALBUTEROL 0.63 MG/3 ML NEB NEB SCH ×4 (01:01→19:45)
[2018-03-28] MEDS: IPRATROPIUM BROM 0.5MG/2.5ML NEB SCH ×4 (01:01→19:45)
[2018-03-28] MEDS: BENZONATATE 100 MG CAP PO PRN ×2 (01:55→14:36)
[2018-03-28 05:00] LABS: Absolute Lymphocytes (CBC) 0.6 K/uL (0.7-4.9); Absolute Monocytes 0.5 K/uL (0.1-1.3); Absolute Neutrophil 17.5 K/uL (1.8-8.0); Basophils % 0.2 % (0-1.3); Eosinophils % 0.2 % (0-4.4); Hematocrit 38.2 % (39.6-49.0); Lymphocytes % 3.1 % (15.3-44.8); MCH 30.6 pg (27.0-35.0); MCV 93.4 fL (80-100); MPV 8.8 fL (7.6-11.3); Monocytes % 2.4 % (3.3-12.3); RBC Red Blood Cell Count 4.09 M/uL (4.33-5.43)
[2018-03-28 05:13] LABS: Bilirubin Total 0.5 mg/dL (0.2-1.0); Potassium 4.3 mmol/L (3.5-5.1); Protein, Total 6.9 g/dL (6.4-8.2)
--- NOTE | 2018-03-28 06:54 | EKG ---
Test Date: 2018-03-27 Test Time: 06:11:02 [employer] Teacher: YVETTE MEASUREMENT RESULTS: Intervals: Rate: 120 MI: 164 QRSD: 70 QT: 314 QTc: 443 Hodges: P: 5 MI: 164 QRS: -7 T: 6 INTERPRETIVE STATEMENTS: Sinus tachycardia with frequent premature ventricular complexes Inferior infarct, age undetermined Cannot rule out Anterior infarct, age undetermined Abnormal ECG Compared to ECG 06/07/2017 07:57:20 No significant changes Electronically Signed On 03-28-18 06:53:35 CDT by Mike Pacheco
[2018-03-28] MEDS ORDERED: FUROSEMIDE 20 MG/ 2ML VIAL IV ONE (09:00)
[2018-03-28] MEDS ORDERED: BENZONATATE 100 MG CAP PO SCH (09:00)
[2018-03-28] MEDS ORDERED: Levofloxacin500mg IV 500 MG/100 ML BAG IV SCH (09:00)
[2018-03-28] MEDS: predniSONE 20 MG TAB PO SCH ×2 (10:16→20:31)
[2018-03-28] MEDS: SPIRONOLACTONE 25 MG TABLET PO SCH (10:16)
[2018-03-28] MEDS: FERROUS SULFATE 325 MG TAB PO SCH (10:16)
[2018-03-28] MEDS: PANTOPRAZOLE 40MG TABLET PO SCH (10:16)
[2018-03-28] MEDS: FUROSEMIDE 40 MG TABLET PO SCH (10:17)
[2018-03-28] MEDS: ASPIRIN EC 81 MG TAB PO SCH (10:17)
--- NOTE | 2018-03-28 12:54 | P.CNS ---
Date of Consult: 03/28/18 Reason for Consult: Shortness of breath Primary Care Provider: Dr Foster. Chief Complaint: SOB History of Present Illness: Patient is well-known to me 72 years of age recently traveled to [place] became very short of breath he came back after 4 days he has some vomiting dry cough some swelling of his legs denies any fever chills chest pain and was admitted to the hospital is currently doing well compliant with these medications did not take any steroids while in [place] Allergies No Known Allergies Allergy (Verified 03/27/18 12:09) Home Medications: Fluticasone/Salmeterol [Advair 250/50 Diskus*] 1 puff IH DAILY 03/07/14 Aspirin [Low Dose Aspirin EC] 81 mg PO DAILY 12/22/14 Pantoprazole [Protonix Tab*] 40 mg PO DAILY 12/22/14 Simvastatin 20 mg PO BEDTIME 12/22/14 Spironolactone [Aldactone] 50 mg PO DAILY 12/22/14 Fluticasone/Vilanterol [Breo Ellipta 100-25 Mcg INH] 1 puff IH DAILY 06/07/17 Furosemide 40 mg PO DAILY 06/07/17 Potassium Chloride [Klor-Con M20] 1 tab PO DAILY 06/07/17 Tiotropium [place] [Spiriva] 1 puff IH DAILY 06/07/17 Ferrous Sulfate 1 tab PO DAILY 03/27/18 Fluticasone [Flonase 50mcg Nasal [place]] 2 sprays NS DAILY 03/27/18 Ropinirole HCl [Requip*] 1 tab PO BEDTIME 03/27/18 - Past Medical/Surgical History Diabetic: No -: CHF -: COPD -: AFIB -: HTN -: [place] -: HIGH CHOLESTEROL -: ESOPHAGEAL CANCER -: CHF, A-fib -: asbestosis -: Exploratory esophageal surgery (February 2013) -: Esophageal cancer resection (March 2013) -: Esophageal ablation (June 28, 2013) -: heart stents -: catracho cataract - Family History Father Medical History: Heart disease, Other (see notes) Notes: Heart attack Mother Medical History: Heart disease, Other (see notes) Notes: CHF Brother Medical History: Heart disease Notes: [place] X2 - Social History Smoking Status: Unknown if ever smoked Alcohol use: No CD- Drugs: No Caffeine use: No Place of Residence: Home Review of Systems 10-point ROS is otherwise unremarkable Physical Examination Temp Pulse Resp BP Pulse Ox 97.1 F 83 21 H 139/70 93 03/28/18 08:00 03/28/18 10:27 03/28/18 08:00 03/28/18 10:27 03/28/18 08:00 General: Alert, Oriented x3 HEENT: Atraumatic Neck: Supple Respiratory: Clear to auscultation bilaterally, Diminished Cardiovascular: No edema, Regular rate/rhythm, Normal S1 S2 Gastrointestinal: Normal bowel sounds, Soft and benign Musculoskeletal: No clubbing - Problems (1) COPD with acute exacerbation Onset Date: 03/28/18 Current Visit: Yes Status: Acute Plan: Patient is 72 years of age admitted with an acute exacerbation continue with his therapy at home is quite possible that he has an infection is white count is elevated continue with steroids antibiotics possible discharge tomorrow compliant with his CPAP and is bronchodilators at home
[2018-03-28] MEDS: ROPINIROLE HCL 0.25 MG TAB PO SCH (20:29)
[2018-03-28] MEDS: ATORVASTATIN 10 MG TAB PO SCH (20:30)
[2018-03-29] MEDS: LEVALBUTEROL 0.63 MG/3 ML NEB NEB SCH ×2 (01:32→07:37)
[2018-03-29] MEDS: IPRATROPIUM BROM 0.5MG/2.5ML NEB SCH ×2 (01:32→07:38)
[2018-03-29 04:28] LABS: Absolute Lymphocytes (CBC) 0.4 K/uL (0.7-4.9); Absolute Monocytes 0.5 K/uL (0.1-1.3); Basophils % 0.1 % (0-1.3); Hematocrit 39.3 % (39.6-49.0); Lymphocytes % 2.6 % (15.3-44.8); MCH 30.8 pg (27.0-35.0); MCV 93.3 fL (80-100); MPV 8.9 fL (7.6-11.3); Monocytes % 2.8 % (3.3-12.3); RBC Red Blood Cell Count 4.21 M/uL (4.33-5.43)
[2018-03-29 05:35] LABS: Potassium 4.7 mmol/L (3.5-5.1)
[2018-03-29 08:16] VITALS: BP 127/82; TEMP 97
[2018-03-29] MEDS ORDERED: levoFLOXacin 500 MG TAB PO SCH (09:00)
[2018-03-29] MEDS: predniSONE 20 MG TAB PO SCH (09:38)
[2018-03-29] MEDS: FUROSEMIDE 40 MG TABLET PO SCH (09:38)
[2018-03-29] MEDS: PANTOPRAZOLE 40MG TABLET PO SCH (09:39)
[2018-03-29] MEDS: SPIRONOLACTONE 25 MG TABLET PO SCH (09:39)
[2018-03-29] MEDS: ASPIRIN EC 81 MG TAB PO SCH (09:39)
[2018-03-29] MEDS: FERROUS SULFATE 325 MG TAB PO SCH (09:39)
[2018-03-29 10:05] VITALS: O2SAT 97
--- NOTE | 2018-03-29 11:15 | PN ---
Date of Progress Note: 03/29/2018 The patient feels much better today. He states that his symptoms are basically at baseline. He did have a short burst of V-tach last night shortly after coughing episode and a breathing treatment; how ever, he has been stable since. He can be discharged to continue on his usual outpatient medications . He was cleared for discharge by Pulmonology, see me in the office in a couple of days and probably we will utilize a monitor which he states he has not been on in sometime now. HR/MODL Voice ID: [id number] Report ID: [id number]
--- NOTE | 2018-03-29 12:53 | P.DS ---
Admission Date: 03/27/18 Discharge Date: 03/29/18 Primary Care Provider: Dr Foster. Disposition: ROUTINE DISCHARGE Discharge Condition: FAIR Reason for Admission: SOB - Problems (1) COPD with acute exacerbation Onset Date: 03/28/18 Status: Acute Brief History of Present Illness: Patient is well-known to me 72 years of age recently traveled to [place] became very short of breath he came back after 4 days he has some vomiting dry cough some swelling of his legs denies any fever chills chest pain and was admitted to the hospital is currently doing well compliant with these medications did not take any steroids while in [place] Hospital Course: Patient is 72 years of age admitted with worsening dyspnea he did well with conservative therapy and steroids at the time of discharge he was doing well requesting albuterol ipratropium to be faxed to the pharmacy patient's white count was mildly elevated cultures all negative he is recently traveled to [place] and deteriorated compliant with his BiPAP patient is stable to be discharged home medications reviewed the medications faxed BNP lowered to 290 to follow up with me in 2-4 weeks Vital Signs/Physical Exam: Temp Pulse Resp BP Pulse Ox 97.0 F 74 18 127/82 94 03/29/18 08:00 03/29/18 09:39 03/29/18 08:00 03/29/18 09:39 03/29/18 08:00 Laboratory Data at Discharge: WBC 16.9 K/uL (4.3-10.9) H 03/29/18 03:54 Hgb 13.0 g/dL (13.6-17.9) L 03/29/18 03:54 Hct 39.3 % (39.6-49.0) L 03/29/18 03:54 Plt Count 180 K/uL (152-406) 03/29/18 03:54 PT 13.0 SECONDS (9.5-12.5) H 03/27/18 13:08 INR 1.10 03/27/18 13:08 APTT 26.0 SECONDS (24.3-36.9) 03/27/18 13:08 Sodium 136 mmol/L (136-145) 03/29/18 03:54 Potassium 4.7 mmol/L (3.5-5.1) 03/29/18 03:54 BUN 27 mg/dL (7-18) H 03/29/18 03:54 Creatinine 1.20 mg/dL (0.55-1.3) 03/29/18 03:54 Glucose 253 mg/dL (74-106) H 03/29/18 03:54 Magnesium 2.2 mg/dL (1.8-2.4) 03/27/18 13:08 Total Bilirubin 0.5 mg/dL (0.2-1.0) 03/28/18 04:34 AST 16 U/L (15-37) 03/28/18 04:34 ALT 17 U/L (12-78) 03/28/18 04:34 Alkaline Phosphatase 51 U/L (45-117) 03/28/18 04:34 Lipase 77 U/L (73-393) 03/27/18 13:08 Home Medications: Fluticasone/Salmeterol [Advair 250/50 Diskus*] 1 puff IH DAILY 03/07/14 Aspirin [Low Dose Aspirin EC] 81 mg PO DAILY 12/22/14 Pantoprazole [Protonix Tab*] 40 mg PO DAILY 12/22/14 Simvastatin 20 mg PO BEDTIME 12/22/14 Spironolactone [Aldactone] 50 mg PO DAILY 12/22/14 Fluticasone/Vilanterol [Breo Ellipta 100-25 Mcg INH] 1 puff IH DAILY 06/07/17 Furosemide 40 mg PO DAILY 06/07/17 Potassium Chloride [Klor-Con M20] 1 tab PO DAILY 06/07/17 Tiotropium [place] [Spiriva] 1 puff IH DAILY 06/07/17 Ferrous Sulfate 1 tab PO DAILY 03/27/18 Fluticasone [Flonase 50MCG Nasal [place]*] 2 sprays NS DAILY 03/27/18 Ropinirole HCl [Requip*] 1 tab PO BEDTIME 03/27/18 Ipratropium/Albuterol Sulfate [Iprat-Albut 0.5-3(2.5) mg/3 ml] 3 ml IH TID PRN 30 Days #90 ampul.neb 03/29/18 predniSONE [Prednisone*] 10 mg PO BID #20 tab 03/29/18 New Medications: Ipratropium/Albuterol Sulfate [Iprat-Albut 0.5-3(2.5) mg/3 ml] 3 ml IH TID PRN 30 Days #90 ampul.neb PRN Reason: sob predniSONE [Prednisone*] 10 mg PO BID #20 tab Diet: Regular Activity: Ad micaela Followup: Casey Rice MD [ACTIVE - CAN ADMIT] - 1-2 Weeks (call the office to make an appointment in 2 weeks.) Jean Claude Foster MD [Primary Care Provider] - 1 Week (call the office octaviano elaine an appointment in 1 week. )
--- NOTE | 2018-03-29 15:42 | EKG ---
Test Date: 2018-03-29 Test Time: 07:42:38 Head Knitting Machine Fixer: JAIRON MEASUREMENT RESULTS: Intervals: Rate: 75 VT: 156 QRSD: 80 QT: 394 QTc: 439 [place]: P: 30 VT: 156 QRS: 0 T: 8 INTERPRETIVE STATEMENTS: Sinus rhythm with premature atrial complexes Otherwise normal ECG Compared to ECG 03/27/2018 06:11:02 Atrial premature complex(es) now present Sinus tachycardia no longer present Ventricular premature complex(es) no longer present Myocardial infarct finding no longer present Electronically Signed On 03-29-18 15:40:29 CDT by Lex Aguayo
== END 2018-03-29 12:16 | disposition home or self-care (01) | DRG 190 ==
LOC: ER 05:56 → ERHOLD 09:43 → 4TH 10:54
PROVIDERS: ADMIT Family Medicine; ATTEND Family Medicine
DX: J44.1 Chronic obstructive pulmonary disease with (acute) exacerbation (principal); J18.9 Pneumonia, unspecified organism; I50.42 Chronic combined systolic (congestive) and diastolic (congestive) heart failure; I47.2 Ventricular tachycardia; J44.0 Chronic obstructive pulmonary disease with (acute) lower respiratory infection; Z79.82 Long term (current) use of aspirin; Z79.52 Long term (current) use of systemic steroids; I11.0 Hypertensive heart disease with heart failure; I48.91 Unspecified atrial fibrillation; I25.2 Old myocardial infarction; Z85.01 Personal history of malignant neoplasm of esophagus; J61 Pneumoconiosis due to asbestos and other mineral fibers; Z99.81 Dependence on supplemental oxygen; Z95.5 Presence of coronary angioplasty implant and graft; I25.10 Atherosclerotic heart disease of native coronary artery without angina pectoris; K21.9 Gastro-esophageal reflux disease without esophagitis; R09.02 Hypoxemia; Z87.891 Personal history of nicotine dependence; Z91.14 Patient's other noncompliance with medication regimen; E78.5 Hyperlipidemia, unspecified
CPT/HCPCS: 36415; 71045; 71260; 74177; 80048; 80053; 80076; 81003; 82550; 82553; 83605; 83690; 83735; 83880; 84145; 84484; 85025; 85610; 85730; 87040; 87070; 87205; 87804; 93005; 94640; 94760; 99285; C9113; J1940; J2930; J7030; J7512; Q9967

== ENCOUNTER 2019-08-27 10:33 | Inpatient (IN) | payer OTHER ==
[2019-08-27 11:00] LABS: Basophils % 0.5 % (0-1.3); Hematocrit 37.8 % (39.6-49.0); Lymphocytes % 13.9 % (15.3-44.8); MPV 8.3 fL (7.6-11.3); RBC Red Blood Cell Count 4.27 M/uL (4.33-5.43)
[2019-08-27 11:01] LABS: Protime INR 1.07
[2019-08-27] MEDS ORDERED: LEVALBUTEROL 1.25 MG/3 ML NEB ONE (11:01)
[2019-08-27] MEDS ORDERED: predniSONE 20 MG TAB ONE (11:01)
[2019-08-27 11:20] LABS: Albumin 3.1 g/dL (3.4-5.0); Bilirubin Direct 0.2 mg/dL (0-0.2); Bilirubin Total 0.5 mg/dL (0.2-1.0); Magnesium 1.8 mg/dL (1.8-2.4); Potassium 4.5 mmol/L (3.5-5.1); Protein, Total 6.9 g/dL (6.4-8.2); Troponin (Emerg Dept Use Only) 0.02 ng/mL (0.0-0.045)
--- NOTE | 2019-08-27 11:54 | RAD REPORT ---
EXAM DESCRIPTION: CT - [id number] - 08/27/2019 11:30 am CLINICAL HISTORY: Syncope, fall, head and neck injury COMPARISON: CT study July 17 TECHNIQUE: Axial 5 mm thick images of the head were obtained. Axial 2 mm thick images of the cervic al spine were obtained with sagittal and coronal reconstruction images generated and reviewed. All CT scans are performed using dose optimization technique as appropriate and may include automated exposure control or mA/KV adjustment according to patient size. FINDINGS: No intracranial hemorrhage, mass, edema or acute intracranial finding. No acute cortical infarction s een. Patient has moderate for age atrophy and advanced chronic ischemic change. There is old encephal omalacia in the left frontal lobe from prior ischemic event or trauma. Postsurgical changes are seen in the left orbit torre. No extra-axial fluid collections. Mastoid air cells and paranasal sinuses ar e clear. No globe or orbit abnormality seen. Cervical bodies are normal in height. Slight anterior subluxation of C3 on C4 and C4 on C5. C5-6, C6- 7 and C7-T1 disc space narrowing with endplate spurring. No fracture or acute bony abnormality. Advan thierry facet joint degenerative changes are present on the right at C2-3. Uncovertebral joint hypertroph y and severe facet hypertrophy causes foraminal stenosis on the left at C3-4 and on the right at C4-5 . Bilateral C5-6 and C6-7 [id number] foraminal stenosis present. Central canal detail is inhere ntly limited. No paraspinal mass or hematoma. IMPRESSION: No hemorrhage, edema or acute intracranial finding. Moderate severity chronic ischemic changes are present matching the MRI study. Patient has old ischem ia or trauma volume loss in the left frontal lobe an 8 severe chronic ischemic pattern. Very advanced facet degenerative change as detailed. No fracture or acute finding seen.
[2019-08-27] MEDS ORDERED: METOPROLOL TARTRATE 5 MG/5 ML INJ IV ONE ×3 (12:50→13:05)
--- NOTE | 2019-08-27 12:58 | RAD REPORT ---
EXAM DESCRIPTION: RAD - Chest Single View - 08/27/2019 11:41 am CLINICAL HISTORY: Syncope, shortness of breath COMPARISON: August 17 TECHNIQUE: AP portable chest image was obtained 1133 hours . FINDINGS: Interstitial opacification is increased throughout both lung pratt. This is superimposed on a significant chronic interstitial pattern. Cardiomegaly is present. Enlarged pulmonary artery is noted. No measurable pleural effusion and no pneumothorax. No acute bony abnormality seen. No acute a ortic findings suspected. IMPRESSION: Moderate CHF/volume overload superimposed on chronic interstitial lung disease.
[2019-08-27] MEDS ORDERED: ENOXAPARIN 100 MG/ML SYR SQ ONE (13:01)
--- NOTE | 2019-08-27 13:15 | ER ---
Nurse's Notes [facility] Name: Luiz Jeffery Age: 74 yrs Sex: Male : 1945 Arrival Date: 08/27/2019 Time: 10:35 Bed 14 Private MD: Diagnosis: Atrial fibrillation and flutter;Chronic obstructive pulmonary disease, unspecified;Acute on chronic combined systolic (congestive) and diastolic (congestive) heart failure Presentation: 08/27 10:36 Presenting complaint: EMS states: near syncope episode. Fell from standing and hit L ca1 shoulder and c/o pain on that area, DENIES LOC. Pt reports general weakness and SOB for couple days. HR at 80-120, Afib with RVR and PVCs. Hx of Afib. Hx of COPD, SPO2 at 85-88% at 3LPM. Hx heart attack, cardiac stents on 2012. Transition of care: patient was not received from another setting of care. Onset of symptoms was August 27, 2019. Risk Assessment: Do you want to hurt yourself or someone else? Patient reports no desire to harm self or others. Initial Sepsis Screen: Does the patient meet any 2 criteria? No. Patient's initial sepsis screen is negative. Does the patient have a suspected source of infection? No. Patient's initial sepsis screen is negative. Care prior to arrival: IV initiated. 20 GA, in the left antecubital area, Oxygen administered. via nasal cannula. 10:36 Method Of Arrival: EMS: [facility] ca1 10:36 Acuity: EMELINA 2 ca1 Triage Assessment: 10:52 General: Appears in no apparent distress. comfortable, Behavior is calm, cooperative, ca1 appropriate for age. Pain: Complains of pain in anterior aspect of left shoulder and posterior aspect of left shoulder Pain currently is 4 out of 10 on a pain scale. Pain began 30 min ago. Historical: - Home Meds: 10:52 spironolactone 50 mg Oral tab 1 tab once daily [Active]; aspirin 81 mg Oral TbEC 1 tab ca1 once daily [Active]; Spiriva Respimat 2.5 mcg/actuation inhalation mist 2 puffs once daily [Active]; fluticasone propionate (bulk) 100 % miscellaneous powd [Active]; Ventolin Rotahaler/Rotacaps Inhl [Active]; Linzess 145 mcg oral cap 1 cap once daily [Active]; simvastatin 20 mg Oral tab 1 tab once daily [Active]; furosemide 20 mg Oral tab 1 tab once daily [Active]; ropinirole 0.25 mg oral tab 1 tab [Active]; pantoprazole 40 mg oral TbEC 1 tab once daily [Active]; prednisone 20 mg oral tab 0.5 tab 2 times per day [Active]; 10:57 albuterol sulfate inhalation Inhl [Active]; ca1 12:47 tamsulosin 0.4 mg oral cp24 1 cap once daily [Active]; ca1 - PMHx: 10:52 CHF; COPD; esophageal cancer; Atrial Fib; Hyperlipidemia; Myocardial infarction; ca1 - PSHx: 10:52 Heart stents; ca1 - Immunization history:: Adult Immunizations up to date, Flu vaccine is up to date. - Social history:: Smoking status: Patient/guardian denies using tobacco. - Ebola Screening: : Patient negative for fever greater than or equal to 101.5 degrees Fahrenheit, and additional compatible Ebola Virus Disease symptoms Patient denies exposure to infectious person Patient denies travel to an Ebola-affected area in the 21 days before illness onset No symptoms or risks identified at this time. Screenin:00 Abuse screen: Denies threats or abuse. Denies injuries from another. Nutritional ca1 screening: No deficits noted. Tuberculosis screening: No symptoms or risk factors identified. Fall Risk Fall in past 12 months (25 points). IV access (20 points). Total Mcmahan Fall Scale indicates High Risk Score (45 or more points). Fall prevention measures have been instituted. Side Rails Up X 2 Family Present and informed to notify staff if the need to leave the bedside As available patient and family educated on Fall Prevention Program and Strategies. Assessment: 11:00 General: Appears in no apparent distress. comfortable, ill, Behavior is calm, ca1 cooperative, appropriate for age. General: Reports feeling ill for > 3 days, fatigue for >3 days. Pain: Complains of pain in posterior aspect of left shoulder and anterior aspect of left shoulder Pain currently is 4 out of 10 on a pain scale. Neuro: Level of Consciousness is awake, alert, obeys commands, Oriented to person, place, time, situation. Neuro: Reports dizziness. Cardiovascular: Reports lightheadedness, Heart tones S1 S2 present Capillary refill < 3 seconds Patient's skin is warm and dry. Rhythm is atrial fibrillation with rapid ventricular response With PVC's. Respiratory: Reports shortness of breath on exertion Airway is patent Respiratory effort is even, unlabored, Respiratory pattern is regular, symmetrical. GI: Abdomen is round non-distended, Bowel sounds present X 4 quads. Abd is soft and non tender X 4 quads. : No deficits noted. No signs and/or symptoms were reported regarding the genitourinary system. EENT: No deficits noted. No signs and/or symptoms were reported regarding the EENT system. Derm: Skin is intact, is healthy with good turgor, Skin is pink, warm \T\ dry. Musculoskeletal: Circulation, motion, and sensation intact. Capillary refill < 3 seconds, Range of motion: intact in all extremities. 11:52 Reassessment: Patient appears in no apparent distress at this time. Patient and/or ca1 family updated on plan of care and expected duration. Pain level reassessed. Patient is alert, oriented x 3, equal unlabored respirations, skin warm/dry/pink. 12:41 Reassessment: Patient appears in no apparent distress at this time. Patient and/or ca1 family updated on plan of care and expected duration. Pain level reassessed. Patient is alert, oriented x 3, equal unlabored respirations, skin warm/dry/pink. Breathing treatment completed. HR still elevated, notified provider. 13:05 Reassessment: Pt HR went down to 97-10 after 1st dose of Lopressor IV. Notified ca1 provider. Provider said to give 1 more then observe and may hold 3rd dose and then give PO Lopressor instead. 13:18 Reassessment: SBP lowered to 90s. Notified provider. Lopressor IV 3rd dose put on hold. ca1 EKG taken. 14:07 Reassessment: Dr. Esparza at bedside. Reassessment: Patient appears in no apparent ca1 distress at this time. Patient is alert, oriented x 3, equal unlabored respirations, skin warm/dry/pink. 15:17 Reassessment: Patient appears in no apparent distress at this time. Patient is alert, ca1 oriented x 3, equal unlabored respirations, skin warm/dry/pink. Pending Room assignment. Pt eating crackers at bedside, reports feeling better. Able to lay back on bed more without being short of breath. 15:40 Reassessment: Patient appears in no apparent distress at this time. Patient is alert, ca1 oriented x 3, equal unlabored respirations, skin warm/dry/pink. Vital Signs: 10:52 BP 105 / 72; Pulse 70; Resp 26 S; Temp 99.3(O); Pulse Ox 84% on 3 lpm NC; Weight 101.15 mh5 kg (R); Height 5 ft. 9 in. (175.26 cm) (R); Pain 5/10; 10:54 Pulse Ox 93% on 3 lpm NC; ca1 11:52 BP 131 / 90; Pulse 115; Resp 23; Pulse Ox 99% on Nebulizer Mask; ca1 12:28 BP 116 / 68; Pulse 117; Resp 27 S; Pulse Ox 95% on 3 lpm NC; ca1 12:51 BP 123 / 96; Pulse 119; Resp 19; Pulse Ox 92% on 3 lpm NC; ca1 13:00 BP 117 / 73; Pulse 105; Resp 19; Pulse Ox 94% on 3 lpm NC; ca1 13:18 BP 93 / 68; Pulse 102; Resp 17 S; Pulse Ox 92% on 3 lpm NC; ca1 13:45 BP 108 / 91; Pulse 100; Resp 19 S; Pulse Ox 94% on 3 lpm NC; ca1 14:00 BP 95 / 72; Pulse 100; Resp 22; Pulse Ox 92% on 3 lpm NC; ca1 14:24 BP 95 / 74; Pulse 93; Resp 19 S; Pulse Ox 93% on 3 lpm NC; ca1 15:16 BP 107 / 76; Pulse 94; Resp 23; Pulse Ox 96% on 3 lpm NC; mh5 15:40 BP 100 / 84; Pulse 93; Resp 18 S; Pulse Ox 95% on 3 lpm NC; ca1 10:52 Body Mass Index 32.93 (101.15 kg, 175.26 cm) mh5 ED Course: 10:35 Patient arrived in ED. ca1 10:37 Gilles Beckman NP is PHCP. pm1 10:37 Warner Borjas MD is Attending Physician. pm1 10:41 Triage completed. ca1 10:52 Arm band placed on right wrist. EKG completed in triage. Results shown to MD. ca1 10:55 No provider procedures requiring assistance completed. Maintain EMS IV. Dressing ca1 intact. Good blood return noted. Site clean \T\ dry. Gauge \T\ site: G20 LAC. 10:56 Patient has correct armband on for positive identification. Placed in gown. Bed in low mh5 position. Call light in reach. Side rails up X2. Adult w/ patient. Warm blanket given. cannery tender engineer on. Pulse ox on. NIBP on. 11:00 Initial lab(s) drawn, by ED staff, sent to lab. ca1 11:04 Rosalie Milan, JACQUELINE is Primary Nurse. ca1 11:19 CT completed. Patient moved to radiology Patient moved back from CT. bq 11:31 CT Head C Spine In Process Unspecified. EDMS 11:42 Shoulder Left (2 View) XRAY In Process Unspecified. EDMS 11:42 XRAY Chest (1 view) In Process Unspecified. EDMS 12:23 First set of blood cultures drawn by me. ca1 12:23 Inserted saline lock: 20 gauge in right antecubital area, using aseptic technique. ca1 Blood collected. 13:14 Sai Esparza DO is Hospitalizing Provider. pm1 15:35 Patient admitted, IV remains in place. ca1 Administered Medications: 10:44 CANCELLED (Physician Discretion): Albuterol - atroVENT (3:1) (2.5 mg - 0.5 mg) 3 ml pm1 Nebulizer once 11:03 Drug: predniSONE 60 mg Route: PO; ca1 12:57 Follow up: Response: No adverse reaction ca1 11:45 Drug: Xopenex (3) 1.25 mg Route: Inhalation; ca1 12:55 Drug: Lopressor 5 mg Route: IVP; Site: right antecubital; ca1 13:02 Drug: Lopressor 5 mg Route: IVP; Site: right antecubital; ca1 13:26 Follow up: Response: No adverse reaction; No adverse reaction, HR lowered to 90-105 ca1 13:02 Drug: Lovenox 1 mg/kg Route: Sub-Q; Site: abdomen; ca1 13:26 Follow up: Response: No adverse reaction ca1 15:10 Drug: Lasix 20 mg Route: IVP; Site: left antecubital; iw 15:42 Follow up: Urine output 0 ml; Response: No adverse reaction ca1 Output: 15:42 Urine: 0ml; Total: 0ml. ca1 Outcome: 13:14 Decision to Hospitalize by Provider. pm1 15:35 Admitted to Med/surg accompanied by tech, via stretcher, room 215, with oxygen, with ca1 chart, Report called to JACQUELINE Bernal 15:35 Condition: stable 15:35 Instructed on the need for admit. 16:34 Patient left the ED. sv Signatures: Dispatcher [employer] Meche Aguero, Georgia Alvarenga RN, Irene, RN RN iw Gilles Beckman, JJ IRRIGATOR HEAD pm1 Janis Grossman [facility] Rosalie Milan RN RN ca1 Corrections: (The following items were deleted from the chart) 10:56 10:52 BP 105 / 72; Pulse 70bpm; Resp 26bpm; Spontaneous; Pulse Ox 84% 3 lpm Nasal mh5 Cannula; 101.15 kg Reported; Height 5 ft. 9 in. Reported; BMI: 32.9; Pain 5/10; ca1 12:47 10:52 Allergies: No Known Allergies; ca1 ca1
--- NOTE | 2019-08-27 13:15 | RAD REPORT ---
EXAM DESCRIPTION: RAD - Shoulder Left 2 View - 08/27/2019 11:41 am CLINICAL HISTORY: Syncope, fall, left shoulder pain COMPARISON: None. TECHNIQUE: Internal and external rotation views of the left shoulder were obtained. FINDINGS: There is no fracture or dislocation. AC joint degenerative changes are present without inf eriorly directed spurring. Acromial humeral joint space is normal. No abnormal calcification. No acut e or suspicious findings. IMPRESSION: Negative two-view left shoulder examination for acute finding.
--- NOTE | 2019-08-27 13:15 | EDPHYS ---
Physician Documentation [facility] Name: Luiz Jeffery Age: 74 yrs Sex: Male : 1945 Arrival Date: 08/27/2019 Time: 10:35 Bed 14 Private MD: ED Physician Warner Borjas HPI: 08/27 10:48 This 74 yrs old Male presents to ER via EMS with complaints of Near Syncope. pm1 10:48 The patient has experienced near-syncope, felt faint, and fell on the ground in the pm1 garage on to his left side. denies headache, neck pain, or head injury. Landed on his left shoulder. Left shoulder pain. Onset: The symptoms/episode began/occurred just prior to arrival. Context: occurred at home, occurred while the patient was walking, Just prior to the episode the patient experienced shortness of breath ongoing for the past 1 week. Associated signs and symptoms: Pertinent negatives: blurred vision, chest pain, headache, nausea, numbness, tingling, vomiting. Current symptoms: shortness of breath. The patient has been recently seen by a physician: the patient's primary care provider, Dr. Foster 1 week(s) ago, with similar presenting complaints, X-rays were performed. Patient has not been taking any beta-blockers for 1 year. 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 Historical: - Home Meds: 10:52 spironolactone 50 mg Oral tab 1 tab once daily [Active]; aspirin 81 mg Oral TbEC 1 tab ca1 once daily [Active]; Spiriva Respimat 2.5 mcg/actuation inhalation mist 2 puffs once daily [Active]; fluticasone propionate (bulk) 100 % miscellaneous powd [Active]; Ventolin Rotahaler/Rotacaps Inhl [Active]; Linzess 145 mcg oral cap 1 cap once daily [Active]; simvastatin 20 mg Oral tab 1 tab once daily [Active]; furosemide 20 mg Oral tab 1 tab once daily [Active]; ropinirole 0.25 mg oral tab 1 tab [Active]; pantoprazole 40 mg oral TbEC 1 tab once daily [Active]; prednisone 20 mg oral tab 0.5 tab 2 times per day [Active]; 10:57 albuterol sulfate inhalation Inhl [Active]; ca1 12:47 tamsulosin 0.4 mg oral cp24 1 cap once daily [Active]; ca1 - PMHx: 10:52 CHF; COPD; esophageal cancer; Atrial Fib; Hyperlipidemia; Myocardial infarction; ca1 - PSHx: 10:52 Heart stents; ca1 - Immunization history:: Adult Immunizations up to date, Flu vaccine is up to date. - Social history:: Smoking status: Patient/guardian denies using tobacco. - Ebola Screening: : Patient negative for fever greater than or equal to 101.5 degrees Fahrenheit, and additional compatible Ebola Virus Disease symptoms Patient denies exposure to infectious person Patient denies travel to an Ebola-affected area in the 21 days before illness onset No symptoms or risks identified at this time. ROS: 11:05 Constitutional: Negative for fever, chills, and weight loss, Eyes: Negative for injury, pm1 pain, redness, and discharge, ENT: Negative for injury, pain, and discharge, Neck: Negative for injury, pain, and swelling, Cardiovascular: Negative for chest pain, palpitations, and edema. 11:05 Abdomen/GI: Negative for abdominal pain, nausea, vomiting, diarrhea, and constipation, Back: Negative for injury and pain, Skin: Negative for injury, rash, and discoloration, Neuro: Negative for headache, weakness, numbness, tingling, and seizure. 11:05 Respiratory: Positive for cough, shortness of breath, Negative for sputum production, wheezing. 11:05 MS/extremity: Positive for pain, of the anterior aspect of left shoulder, Negative for decreased range of motion, deformity. Exam: 11:05 Constitutional: This is a well developed, well nourished patient who is awake, alert, pm1 and in no acute distress. Head/Face: Normocephalic, atraumatic. Neck: Trachea midline, no thyromegaly or masses palpated, and no cervical lymphadenopathy. Supple, full range of motion without nuchal rigidity, or vertebral point tenderness. No Meningismus. Chest/axilla: Normal chest wall appearance and motion. Nontender with no deformity. No lesions are appreciated. Cardiovascular: Regular rate and rhythm with a normal S1 and S2. No gallops, murmurs, or rubs. Normal PMI, no JVD. No pulse deficits. 11:05 Abdomen/GI: Soft, non-tender, with normal bowel sounds. No distension or tympany. No guarding or rebound. No evidence of tenderness throughout. Back: No spinal tenderness. No costovertebral tenderness. Full range of motion. Skin: Warm, dry with normal turgor. Normal color with no rashes, no lesions, and no evidence of cellulitis. MS/ Extremity: Pulses equal, no cyanosis. Neurovascular intact. Full, normal range of motion. 11:05 Respiratory: the patient does not display signs of respiratory distress, Respirations: normal, Breath sounds: decreased breath sounds, are scattered. 11:05 Neuro: Orientation: is normal, Mentation: is normal, Motor: is normal, moves all fours, Sensation: is normal, no obvious gross deficits. Vital Signs: 10:52 BP 105 / 72; Pulse 70; Resp 26 S; Temp 99.3(O); Pulse Ox 84% on 3 lpm NC; Weight 101.15 mh5 kg (R); Height 5 ft. 9 in. (175.26 cm) (R); Pain 5/10; 10:54 Pulse Ox 93% on 3 lpm NC; ca1 11:52 BP 131 / 90; Pulse 115; Resp 23; Pulse Ox 99% on Nebulizer Mask; ca1 12:28 BP 116 / 68; Pulse 117; Resp 27 S; Pulse Ox 95% on 3 lpm NC; ca1 12:51 BP 123 / 96; Pulse 119; Resp 19; Pulse Ox 92% on 3 lpm NC; ca1 13:00 BP 117 / 73; Pulse 105; Resp 19; Pulse Ox 94% on 3 lpm NC; ca1 13:18 BP 93 / 68; Pulse 102; Resp 17 S; Pulse Ox 92% on 3 lpm NC; ca1 13:45 BP 108 / 91; Pulse 100; Resp 19 S; Pulse Ox 94% on 3 lpm NC; ca1 14:00 BP 95 / 72; Pulse 100; Resp 22; Pulse Ox 92% on 3 lpm NC; ca1 14:24 BP 95 / 74; Pulse 93; Resp 19 S; Pulse Ox 93% on 3 lpm NC; ca1 15:16 BP 107 / 76; Pulse 94; Resp 23; Pulse Ox 96% on 3 lpm NC; mh5 15:40 BP 100 / 84; Pulse 93; Resp 18 S; Pulse Ox 95% on 3 lpm NC; ca1 10:52 Body Mass Index 32.93 (101.15 kg, 175.26 cm) 5 MDM: 10:39 Patient medically screened. pm1 13:09 Data reviewed: vital signs. Data interpreted: Pulse oximetry: on 3L(s) per nasal pm1 canula, is 95 %. Interpretation: for patient's baseline COPD. Counseling: I had a detailed discussion with the patient and/or guardian regarding: the historical points, exam findings, and any diagnostic results supporting the discharge/admit diagnosis, lab results, radiology results, the need for further work-up and treatment in the hospital. 13:46 Physician consultation: Jean Claude Foster MD was called at 13:46, was contacted at 13:46, pm1 regarding admission, patient's condition, would like admission per Dr. Sai Esparza DO will see the patient tomorrow. 14:01 Physician consultation: Sai Esparza DO was contacted at 14:01, regarding admission, pm1 patient's condition, and will see patient in ED, in the emergency department to see patient at 14:01. 08/27 10:38 Order name: Basic Metabolic Panel pm08/27 10:38 Order name: CBC with Diff pm1 08/27 10:38 Order name: LFT's; Complete Time: 12:23 pm1 08/27 10:38 Order name: Magnesium; Complete Time: 12:23 pm1 08/27 10:38 Order name: NT PRO-BNP; Complete Time: 12:23 pm1 08/27 10:38 Order name: PT-INR; Complete Time: 12:23 pm1 08/27 10:38 Order name: Shoulder Left (2 View) XRAY; Complete Time: 13:32 pm1 08/27 10:38 Order name: CT Head C Spine; Complete Time: 12:23 pm1 08/27 10:38 Order name: Troponin (emerg Dept Use Only); Complete Time: 12:23 pm1 08/27 10:38 Order name: XRAY Chest (1 view); Complete Time: 13:32 pm1 08/27 10:39 Order name: Flu; Complete Time: 12:23 pm1 08/27 10:39 Order name: Basic Metabolic Panel; Complete Time: 12:23 EDMS 08/27 10:39 Order name: CBC with Automated Diff; Complete Time: 12:23 EDMS 08/27 10:41 Order name: Blood Culture Adult (2) pm1 08/27 10:38 Order name: EKG; Complete Time: 10:39 pm1 08/27 10:38 Order name: Cardiac monitoring; Complete Time: 11:10 pm1 08/27 10:38 Order name: EKG - Nurse/Tech; Complete Time: 11:10 pm1 08/27 10:38 Order name: IV Saline Lock; Complete Time: 11:10 pm1 08/27 10:38 Order name: Labs collected and sent; Complete Time: 11:10 pm1 08/27 10:38 Order name: O2 Per Protocol; Complete Time: 11:10 pm1 08/27 10:38 Order name: O2 Sat Monitoring; Complete Time: 11:10 pm1 08/27 13:26 Order name: EKG; Complete Time: 13:26 ca1 08/27 13:26 Order name: EKG - Nurse/Tech; Complete Time: 13:22 ca1 Administered Medications: 10:44 CANCELLED (Physician Discretion): Albuterol - atroVENT (3:1) (2.5 mg - 0.5 mg) 3 ml pm1 Nebulizer once 11:03 Drug: predniSONE 60 mg Route: PO; ca1 12:57 Follow up: Response: No adverse reaction ca1 11:45 Drug: Xopenex (3) 1.25 mg Route: Inhalation; ca1 12:55 Drug: Lopressor 5 mg Route: IVP; Site: right antecubital; ca1 13:02 Drug: Lopressor 5 mg Route: IVP; Site: right antecubital; ca1 13:26 Follow up: Response: No adverse reaction; No adverse reaction, HR lowered to 90-105 ca1 13:02 Drug: Lovenox 1 mg/kg Route: Sub-Q; Site: abdomen; ca1 13:26 Follow up: Response: No adverse reaction ca1 15:10 Drug: Lasix 20 mg Route: IVP; Site: left antecubital; iw 15:42 Follow up: Urine output 0 ml; Response: No adverse reaction ca1 Disposition: 08/28 07:57 Co-signature as Attending Physician, Warner Borjas MD I agree with the assessment and kdr plan of care. Disposition: 08/27/19 13:14 Hospitalization ordered by Sai Esparza for Observation. Preliminary diagnosis are Atrial fibrillation and flutter, Chronic obstructive pulmonary disease, unspecified, Acute on chronic combined systolic (congestive) and diastolic (congestive) heart failure. - Bed requested for Telemetry/MedSurg (observation). - Status is Observation. sv - Condition is Stable. - Problem is new. - Symptoms have improved. UTI on Admission? No Signatures: Dispatcher [employer] EDMeche Vera RN RN sv Warner Borjas MD MD [facility] Mirtha Mansfield RN RN iw Gilles Beckman NP EVENT MARKETING COORDINATOR pm1 Al Guevara RN RN ja1 Rosalie Milan RN RN ca1 Corrections: (The following items were deleted from the chart) 08/27 10:44 10:39 Albuterol - atroVENT (3:1) (2.5 mg - 0.5 mg) 3 ml Nebulizer once ordered. pm1 pm1 12:47 10:52 Allergies: No Known Allergies; ca1 ca1 13:19 13:14 Hospitalization Ordered by Sai Esparza DO for Observation. Preliminary pm1 diagnosis is Atrial fibrillation and flutter; Chronic obstructive pulmonary disease with (acute) exacerbation. Bed requested for Telemetry/MedSurg (observation). Status is Observation. Condition is Stable. Problem is new. Symptoms have improved. UTI on Admission? No. pm1 13:20 13:19 08/27/2019 13:14 Hospitalization Ordered by Sai Esparza DO for Observation. pm1 Preliminary diagnosis is Atrial fibrillation and flutter; Chronic obstructive pulmonary disease, unspecified. Bed requested for Telemetry/MedSurg (observation). Status is Observation. Condition is Stable. Problem is new. Symptoms have improved. UTI on Admission? No. pm1 15:24 13:20 08/27/2019 13:14 Hospitalization Ordered by Sai Esparza DO for Observation. ja1 Preliminary diagnosis is Atrial fibrillation and flutter; Chronic obstructive pulmonary disease, unspecified; Acute on chronic combined systolic (congestive) and diastolic (congestive) heart failure. Bed requested for Telemetry/MedSurg (observation). Status is Observation. Condition is Stable. Problem is new. Symptoms have improved. UTI on Admission? No. pm1 16:34 15:24 08/27/2019 13:14 Hospitalization Ordered by Sai Esparza DO for Observation. sv Preliminary diagnosis is Atrial fibrillation and flutter; Chronic obstructive pulmonary disease, unspecified; Acute on chronic combined systolic (congestive) and diastolic (congestive) heart failure. Bed requested for Telemetry/MedSurg (observation). Status is Observation. Condition is Stable. Problem is new. Symptoms have improved. UTI on Admission? No. ja1
--- NOTE | 2019-08-27 14:38 | P.HP ---
Certification for Inpatient Patient admitted to: Observation With expected LOS: <2 Midnights Patient will require the following post-hospital care: None Practitioner: I am a practitioner with admitting privileges, knowledge of patient current condition, hospital course, and medical plan of care. Services: Services provided to patient in accordance with Admission requirements found in Title 42 Section 412.3 of the Code of Federal Regulations Patient History Date of Service: 08/27/19 Primary Care Provider: Dr. Foster(I am covering him today); Cardiology-Dr. Aguayo Reason for admission: Presyncope, SOB History of Present Illness: 74-year-old male with history of atrial fibrillation, CAD with prior stent, COPD and prior CVA. Patient presented with presyncopal episode. Over the past week he has been having some increasing shortness of breath. He saw his PCP about 1 week ago. He was scheduled to get any EKG and CT scan. The patient continue to have more shortness of breath. He was planning to come to the ER when he fell. He felt lightheaded prior to the episode. He did report a syncopal episode yesterday. Patient has reported increasing edema. Increase shortness of breath with exertion. He denies any chest pain. He denies any fever, cough. Patient was brought in by EMS. In the ER patient was evaluated. Initial EKG shows AFib with rate of 120. Chest x-ray showed pulmonary edema. CT head and neck unremarkable for acute changes. Shoulder x-ray is also unremarkable. Patient was given Lopressor 5 mg IV x2 in the emergency room. Heart rate has improved. Blood pressure stable this time. On lab white count 7.4, hemoglobin 12. Platelet count 187. Sodium 140, potassium 4.5 creatinine 1.46 with a GFR 47. Glucose 115. Patient was admitted for further evaluation and treatment. When I saw the patient in the ER, he did not appear in any respiratory distress. Blood pressure around 108 systolic. Heart rate around 90-100. at bedside. Patient reports taking a beta-florina medication in the past. This was discontinued in the past. He also reports taking Xarelto in the past but this was discontinued due to iron deficiency anemia. Patient is seen by cardiology. Allergies No Known Allergies Allergy (Verified 03/27/18 12:09) Home medications list reviewed: Yes Home Medications: Fluticasone/Salmeterol [Advair 250/50 Diskus*] 1 puff IH DAILY 03/07/14 Aspirin [Low Dose Aspirin EC] 81 mg PO DAILY 12/22/14 Pantoprazole [Protonix Tab*] 40 mg PO DAILY 12/22/14 Simvastatin 20 mg PO BEDTIME 12/22/14 Spironolactone [Aldactone] 50 mg PO DAILY 12/22/14 Fluticasone/Vilanterol [Breo Ellipta 100-25 Mcg INH] 1 puff IH DAILY 06/07/17 Furosemide 40 mg PO DAILY 06/07/17 Potassium Chloride [Klor-Con M20] 1 tab PO DAILY 06/07/17 Tiotropium [place] [Spiriva] 1 puff IH DAILY 06/07/17 Ferrous Sulfate 1 tab PO DAILY 03/27/18 Fluticasone [Flonase 50MCG Nasal [place]*] 2 sprays NS DAILY 03/27/18 Ropinirole HCl [Requip*] 1 tab PO BEDTIME 03/27/18 Ipratropium/Albuterol Sulfate [Iprat-Albut 0.5-3(2.5) mg/3 ml] 3 ml IH TID PRN 30 Days #90 ampul.neb 03/29/18 predniSONE [Prednisone*] 10 mg PO BID #20 tab 03/29/18 - Past Medical/Surgical History Diabetic: No -: CHF, systolic dysfunction -: COPD -: Chronic atrial fibrillation not on chronic anti coagulation therapy -: HTN -: CAD with prior stent -: Hyperlipidemia -: History of esophageal cancer -: GERD -: BPH -: Restless leg syndrome -: Exploratory esophageal surgery (February 2013) -: Esophageal cancer resection (March 2013) -: Esophageal ablation (June 28, 2013) -: heart stents -: catracho cataract Psychosocial/ Personal History: Patient lives at home. - Family History Father -: Heart disease, Other (see notes) Notes: Heart attack Mother -: Heart disease, Other (see notes) Notes: CHF Brother -: Heart disease Notes: [place] X2 - Social History Smoking Status: Former smoker Alcohol use: No CD- Drugs: No Caffeine use: No Place of Residence: Home Review of Systems General: Weakness, As per HPI Eyes: Unremarkable ENT: Unremarkable Respiratory: Shortness of Breath, SOB with Excertion, As per HPI Cardiovascular: Edema, Light Headedness, As per HPI Gastrointestinal: Unremarkable Genitourinary: Unremarkable Musculoskeletal: Pedal edema, As per HPI Neurological: Weakness, As per HPI Lymphatics: Unremarkable Physical Examination - Physical Exam General: Alert, In no apparent distress, Oriented x3, Cooperative HEENT: Atraumatic, Normocephalic, PERRLA, Mucous membr. moist/pink Neck: Supple Respiratory: Crackles/rales (Bilateral) Cardiovascular: Irregular heart rate/rhythm (Atrial fibrillation rate controlled ) Gastrointestinal: Normal bowel sounds, Soft and benign, Non-distended, No tenderness, No masses, No rebound, No guarding Musculoskeletal: No erythema, No tenderness, No warmth Integumentary: No erythema, No warmth, No cyanosis, Tenderness/swelling (1+ pitting edema to the lower extremities bilateral) Neurological: Normal speech, Normal strength at 5/5 x4 extr, Normal tone, Normal affect - Studies Laboratory Data (last 24 hrs) 08/27/19 10:45: PT 12.6 H, INR 1.07 08/27/19 10:45: WBC 7.4, Hgb 12.8 L, Hct 37.8 L, Plt Count 187 08/27/19 10:45: Sodium 140, Potassium 4.5, BUN 15, Creatinine 1.46 H, Glucose 115 H, Magnesium 1.8, Total Bilirubin 0.5, AST 20, ALT 16, Alkaline Phosphatase 49 Microbiology Data (last 24 hrs): 08/27/19 10:45 Nasopharnyx Influenza Type A Antigen Screen - Final 08/27/19 10:45 Nasopharnyx Influenza Type B Antigen Screen - Final Assessment and Plan - Plan Impression: Presyncope, shortness of breath secondary to atrial fibrillation with RVR complicated with acute on chronic systolic CHF Chronic renal disease stage III COPD CAD with prior stent GERD with history of esophageal cancer BPH Restless leg syndrome Plan: Presyncope, shortness of breath secondary to atrial fibrillation with RVR complicated with acute on chronic systolic CHF: Patient will be admitted for further evaluation. Will monitor telemetry and cardiac enzymes. Will check tsh /free T4 and fasting lipid panel in the morning. Patient was given Lopressor 5 g IV x2 in the ER with improvement of heart rate. Patient will be given IV Lasix. Case discussed with cardiology who will see the patient later today. Will start metoprolol 25 mg 1 pill twice daily for rate control. Will start Eliquis 2.5 mg 1 pill twice daily for anti coagulation therapy. Will order echocardiogram to further evaluate. Will recheck chest x-ray tomorrow. Continue with a 1500 cc per day fluid restriction. Will maintain sats above 93% . Will wean off oxygen. Await further recommendation from Cardiology. I am covering for Dr. Foster who will see the patient tomorrow. Chronic renal disease stage III: Will monitor renal function closely. Eliquis adjusted per renal function. COPD: Will start Dulera. Will provide Xopenex instead of albuterol due to AFib. Will provide ipratropium as needed. Will maintain sats above 93%. Will have respiratory wean off oxygen. CAD with prior stent: Will monitor cardiac enzymes. Continue as above. Cardiology consulted. GERD with history of esophageal cancer: Will continue with Protonix 40 mg daily. Will need to monitor for melena or bleeding as the patient reports problems with Xarelto in the past. BPH: Continue with Flomax 0.5 mg daily Restless leg syndrome: Continue with Requip. Discharge Plan: Home Plan to discharge in: 48 Hours - Advance Directives Does patient have a Living Will: No Does patient have a Durable POA for Healthcare: No - Code Status/Comfort Care Code Status Assessed: Yes (Patient is full code) Time Spent Managing Pts Care (In Minutes): 55
[2019-08-27] MEDS ORDERED: FUROSEMIDE 20 MG/ 2ML VIAL ONE (15:03)
[2019-08-27] MEDS ORDERED: ACETAMINOPHEN 500 MG TAB PO PRN (16:34)
[2019-08-27] MEDS ORDERED: FUROSEMIDE 20 MG/ 2ML VIAL IV SCH (17:00)
[2019-08-27 17:01] VITALS: BMI 34.4
[2019-08-27 17:22] LABS: Urine Appearance CLOUDY; Urine Bilirubin NEGATIVE (NEG); Urine Blood NEGATIVE (NEG); Urine Color YELLOW; Urine Glucose NEGATIVE (NEG); Urine Protein NEGATIVE (NEG); Urine Urobilinogen 0.2 mg/dL (0.2-1.0); Urine pH 5.5 (5.0-7.0)
[2019-08-27 17:29] LABS: Urine Microscopic Reflex ORDER UMIC
[2019-08-27] MEDS: METOPROLOL TAR 25 MG TAB PO SCH (18:12)
[2019-08-27 18:31] LABS: Urine Bacteria <20 /HPF (NONE SEEN); Urine Culture Reflex Order NOT NEEDED; Urine RBC <5 /HPF (NONE SEEN)
[2019-08-27 18:32] LABS: Urine Mucus HEAVY /HPF (NONE SEEN)
[2019-08-27 19:29] LABS: CKMB Creatine Kinase MB 1.2 ng/mL (0.3-3.6); Creatine Phosphokinase 42 U/L (39-308); Troponin I < 0.02 ng/mL (0.0-0.045)
[2019-08-27] MEDS: ROPINIROLE HCL 0.25 MG TAB PO SCH (20:59)
[2019-08-27] MEDS: ATORVASTATIN 10 MG TAB PO SCH (21:00)
[2019-08-27] MEDS: DULERA 100/5 (MOMETASONE/FORMOTEROL) INHALER IH SCH (21:00)
[2019-08-27] MEDS: TAMSULOSIN 0.4 MG SR CAP PO SCH (21:00)
[2019-08-27] MEDS: APIXABAN 2.5 MG TABLET PO SCH (21:00)
[2019-08-27] MEDS: LEVALBUTEROL 0.63 MG/3 ML NEB NEB PRN (22:20)
[2019-08-27] MEDS: IPRATROPIUM BROM 0.5MG/2.5ML NEB PRN (22:20)
[2019-08-28 03:25] LABS: Absolute Lymphocytes (CBC) 0.8 K/uL (0.7-4.9); Basophils % 0.1 % (0-1.3); Lymphocytes % 13.2 % (15.3-44.8); MPV 8.8 fL (7.6-11.3); RBC Red Blood Cell Count 4.39 M/uL (4.33-5.43)
[2019-08-28 03:36] LABS: CKMB Creatine Kinase MB < 1.0 ng/mL (0.3-3.6); Creatine Phosphokinase 39 U/L (39-308); Troponin I < 0.02 ng/mL (0.0-0.045)
[2019-08-28 03:41] LABS: Magnesium 2.1 mg/dL (1.8-2.4); Potassium 4.5 mmol/L (3.5-5.1); Thyroid Stimulating Hormone 0.712 uIU/mL (0.360-3.740)
[2019-08-28] MEDS: METOPROLOL TAR 25 MG TAB PO SCH (05:56)
[2019-08-28] MEDS: PANTOPRAZOLE 40MG TABLET PO SCH (05:56)
--- NOTE | 2019-08-28 07:25 | RAD REPORT ---
EXAM DESCRIPTION: RAD - Chest Pa And Lat (2 Views) - 08/28/2019 6:22 am CLINICAL HISTORY: follow up CHF, shortness of breath COMPARISON: August 27 AP chest, CT chest March 2018, portable chest March 2018 TECHNIQUE: PA and lateral views of the chest were obtained. FINDINGS: The lungs are fibrotic as a baseline. Interstitial edema and infiltrate are easily masked in this setting. Lung markings are slightly improved from comparison. Trachea remains midline. Hear t size is upper normal. Widened mediastinum still present. This was present on the March 2018 chest fi lm with the March 2018 CT chest study showing no suspicious mediastinal or hilar mass. Patient has a m oderately large hiatal hernia containing fat and a small portion of the stomach. Small right pleural effusion is suspected. No significant left pleural effusion. No pneumothorax. IMPRESSION: Patient has baseline extensive interstitial lung disease easily masking interstitial darius ma and infiltrate. Lung markings are fractionally improved from comparison. Differential is minimal.
[2019-08-28] MEDS: APIXABAN 2.5 MG TABLET PO SCH ×2 (08:09→21:42)
[2019-08-28] MEDS: DULERA 100/5 (MOMETASONE/FORMOTEROL) INHALER IH SCH ×2 (08:09→21:44)
[2019-08-28] MEDS ORDERED: FUROSEMIDE 20 MG/ 2ML VIAL IV SCH (09:00)
--- NOTE | 2019-08-28 09:36 | EKG ---
Test Date: 2019-08-27 Test Time: 13:23:06 Guest Service Manager: EUSEBIA MEASUREMENT RESULTS: Intervals: Rate: 98 [place]: QRSD: 76 QT: 342 QTc: 436 [place]: P: [place]: QRS: -10 T: -3 INTERPRETIVE STATEMENTS: Atrial fibrillation with premature ventricular or aberrantly conducted complexes Nonspecific ST abnormality Abnormal ECG Compared to ECG 08/27/2019 10:38:36 No significant changes Electronically Signed On 08-28-19 09:35:34 DIRECTOR OF EMPLOYEE DEVELOPMENT by Mike Pacheco
--- NOTE | 2019-08-28 09:36 | EKG ---
Test Date: 2019-08-27 Test Time: 10:38:36 Discount Clerk: LATESHA MEASUREMENT RESULTS: Intervals: Rate: 123 [place]: QRSD: 78 QT: 324 QTc: 463 [place]: P: [place]: QRS: -11 T: -6 INTERPRETIVE STATEMENTS: Atrial fibrillation with rapid ventricular response with premature ventricular or aberrantly conducted complexes Nonspecific ST abnormality Abnormal ECG Compared to ECG 03/29/2018 07:42:38 Ventricular premature complex(es) now present ST (T wave) deviation now present Sinus rhythm no longer present Atrial premature complex(es) no longer present Electronically Signed On 08-28-19 09:35:51 SNORKELLING INSTRUCTOR by Mike Pacheco
--- NOTE | 2019-08-28 11:51 | CON ---
Mr. Jeffery came to the hospital because of dyspnea and was found to be in atrial fib. History Of Present Illness: Mr. Jeffery is always a little bit dyspneic, but for a week, it has been much more pronounced. He did not see a physician until he came to the emergency room yesterday. He has been in the hospital overnight. He has been in atrial fib constantly. Heart rate 70s, 80s and 90s. In the past, Mr. Jeffery had atrial fibrillation. He was cardioverted when he was on Xarelto, he bled to an extremely low hemoglobin and is considered a patient who cannot be anticoagulated. He has not had coronary heart disease before. Medications: Outpatient medications have been simvastatin, Protonix, spironolactone, aspirin, furosemide, fluticasone, ropinirole, Trelegy, albuterol , Linzess, tamsulosin, potassium chloride, and prednisone. He has a history of esophageal cancer treated with endoscopic resection and chemo and radiation. He is considered to have no evidence of disease at this time. He has no allergies. Does not use tobacco. Physical Examination: Vital Signs: 5 feet 9 inches, 232 pounds. Obese, alert, oriented and pleasant , not in distress. Lungs: Clear. Heart: Exam is irregularly irregular. Abdomen: Soft. Extremities: Mild edema. Distal pulses palpable. Chest x-ray reveals interstitial lung disease, chronic, not consistent with pulmonary edema. His electrocardiogram shows atrial fib, heart rate 98, nonspecific ST abnormality. Impression: The patient has symptomatic atrial fibrillation with a normal heart rate because he cannot be fully anticoagulated safely because of his history of GI bleeding. No cause for it was ever seen and it is presumed he has angiodysplasia of the colon that he would not be able to be anticoagulated, so I am going to recommend we strive for rate control and I would not recommend trying to revert him to sinus rhythm. At this point, we can try some diuresis and try to get his heart rate consistently be in the 70s to see if that helps. If we want to try a cardioversion, it would have to be done in [place] with a transesophageal echo first. NAE Voice ID: [id number] Report ID: [id number] JESUS
--- NOTE | 2019-08-28 12:04 | ECHO ---
HEIGHT: 5 ft 9 in WEIGHT: 232 lb 4.8 oz DATE OF STUDY: 08/28/[address]: Sai Esparza DO 2-DIMENSIONAL: YES M.MODE: YES DOPPLER: YES COLOR FLOW: YES TDS: NO PORTABLE: NO DEFINITY: NO BUBBLE STUDY: NO DIAGNOSIS: ATRIAL FIBRILLATION CARDIAC HISTORY: CATHERIZATION: SURGERY: PROSTHETIC VALVE: PACEMAKER: MEASUREMENTS (cm) DIASTOLIC (NORMALS) SYSTOLIC (NORMALS) IVSd 1.0 (0.6-1.2) LA Diam (1.9-4.0) LVEF 50% LVIDd 4.3 (3.5-5.7) LVIDs 3.7 (2.0-3.5) %FS 15% LVPWd 1.0 (0.6-1.2) Ao Diam 2.6 (2.0-3.7) 2 DIMENSIONAL ASSESSMENT: RIGHT ATRIUM: NORMAL LEFT ATRIUM: DILATED RIGHT VENTRICLE: NORMAL LEFT VENTRICLE: NORMAL TRICUSPID VALVE: NORMAL MITRAL VALVE: NORMAL PULMONIC VALVE: NORMAL AORTIC VALVE: STENOSIS PERICARDIAL EFFUSION: NONE AORTIC ROOT: NORMAL LEFT VENTRICULAR WALL MOTION: NORMAL. DOPPLER/COLOR FLOW: MILD AORTIC STENOSIS, PEAK/MEAN GRADIENT 24/13mmHg. ESTIMATED AORTIC VALVE AREA 1.6 CENTIMETERS SQUARED. MILD MITRAL AND TRICUSPID REGURGITATION. ESTIMATED RIGHT VENTRICULAR SYSTOLIC PRESSURE 40mmHg (MILD PULMONARY HYPERTENSION). COMMENTS: NORMAL LEFT VENTRICULAR EJECTION FRACTION. DILATED LEFT ATRIUM. MILD AORTIC STENOSIS. NO AORTIC REGURGITATION. MILD MITRAL AND TRICUSPID REGURGITATION. MILD PULMONARY HYPERTENSION. TECHNOLOGIST: ERICK VEGAS
--- NOTE | 2019-08-28 13:12 | PN ---
Patient states he feels better today as far as breathing and energy level is concerned. We will ther efore start physical therapy. States that he has been off his Lasix because he thought it was interf ering with his urination. He felt in fact that it was creating less however since he has been in her e he was on his Lasix IV, he has had a good output. Therefore, we will reinstitute the medication. As far as his blood thinner is concerned, he said he was using Xarelto. He had a significant decline in his health, apparently became anemic. However, he has been off for some time since he had the at rial fibrillation with RVR. Decided to put him back on Eliquis which he has tolerated today quite we ll and if he continues to be stable he could probably be discharged in a.m. HR/MODL Voice ID: [id number] Report ID: [id number]
[2019-08-28] MEDS: FUROSEMIDE 20 MG TABLET PO SCH (16:48)
[2019-08-28] MEDS ORDERED: SOTALOL HCL 80 MG TAB PO SCH (18:00)
[2019-08-28] MEDS: ROPINIROLE HCL 0.25 MG TAB PO SCH (21:42)
[2019-08-28] MEDS: TAMSULOSIN 0.4 MG SR CAP PO SCH (21:42)
[2019-08-28] MEDS: METOPROLOL TAR 50 MG TAB PO SCH (21:42)
[2019-08-28] MEDS: ATORVASTATIN 10 MG TAB PO SCH (21:42)
[2019-08-29] MEDS: FUROSEMIDE 20 MG TABLET PO SCH ×2 (09:50→16:23)
[2019-08-29] MEDS: DULERA 100/5 (MOMETASONE/FORMOTEROL) INHALER IH SCH ×2 (09:50→20:41)
[2019-08-29] MEDS: PANTOPRAZOLE 40MG TABLET PO SCH (09:50)
[2019-08-29] MEDS: APIXABAN 2.5 MG TABLET PO SCH ×2 (09:50→20:39)
[2019-08-29] MEDS: METOPROLOL TAR 50 MG TAB PO SCH ×2 (09:51→20:39)
--- NOTE | 2019-08-29 12:50 | PN ---
Date of Progress Note: 08/29/[address] Foster on 08/28/[address] Pacheco then. I am seeing him on 08/29/2019 in followup. He had came in with atrial fibrillation with rapid ventricular response. He has had that in the past, but has not been in at a prolonged time. Yesterday, he was ordered Eliquis 2.[address] Foster. He is planning rate control diuresis. Echocardiogram showed a normal ejection fra ction. If his atrial fibrillation remains to be an issue as far as symptoms and recurrent CHF, I alexandro l consider a cardioversion after him being on Eliquis for 3 weeks. If that fails, then we should con bed placement coordinator an ablation and an EP referral. For now, I would increase his Lasix, diurese him more aggressi vely and hopefully send him home tomorrow. BUTCH/DOTTIE Voice ID: [id number] Report ID: [id number]
[2019-08-29] MEDS: LEVALBUTEROL 0.63 MG/3 ML NEB NEB PRN (12:53)
[2019-08-29] MEDS: IPRATROPIUM BROM 0.5MG/2.5ML NEB PRN (12:53)
[2019-08-29] MEDS: ROPINIROLE HCL 0.25 MG TAB PO SCH (20:39)
[2019-08-29] MEDS: ATORVASTATIN 10 MG TAB PO SCH (20:39)
[2019-08-29] MEDS: TAMSULOSIN 0.4 MG SR CAP PO SCH (20:39)
[2019-08-30 06:03] LABS: Absolute Lymphocytes (CBC) 1.5 K/uL (0.7-4.9); Basophils % 0.3 % (0-1.3); Hematocrit 36.4 % (39.6-49.0); MPV 8.7 fL (7.6-11.3); RBC Red Blood Cell Count 4.14 M/uL (4.33-5.43)
[2019-08-30 06:10] LABS: Potassium 3.8 mmol/L (3.5-5.1)
--- NOTE | 2019-08-30 06:30 | PN ---
Date of Progress Note: 08/29/2019 Patient continues to improve both clinically and symptomatically. His peripheral edema has gone down as well as his ascites and he states his breathing is almost back to baseline. His echo showed decr eased ejection fraction compatible with his past echograms. He could probably be discharged in the a .m. HR/MODL Voice ID: [id number] Report ID: [id number]
[2019-08-30] MEDS: APIXABAN 2.5 MG TABLET PO SCH ×2 (08:50→21:02)
[2019-08-30] MEDS: PANTOPRAZOLE 40MG TABLET PO SCH (08:50)
[2019-08-30] MEDS: FUROSEMIDE 20 MG TABLET PO SCH ×2 (08:51→16:27)
[2019-08-30] MEDS: METOPROLOL TAR 50 MG TAB PO SCH ×2 (08:51→21:02)
[2019-08-30] MEDS: DULERA 100/5 (MOMETASONE/FORMOTEROL) INHALER IH SCH ×2 (08:51→21:02)
[2019-08-30] MEDS ORDERED: POTASSIUM CL SA 10 MEQ TAB PO ONE (09:00)
[2019-08-30] MEDS: LEVALBUTEROL 0.63 MG/3 ML NEB NEB PRN (11:45)
[2019-08-30] MEDS: IPRATROPIUM BROM 0.5MG/2.5ML NEB PRN (11:45)
--- NOTE | 2019-08-30 14:40 | PN ---
Mr. Jeffery was admitted with new onset atrial fibrillation, COPD exacerbation, CHF exacerbation. He remains in atrial fibrillation with his rate at 90. He is on anticoagulants. He is on beta-bloc kers. His examination still reveals significant amount of rales in his lungs. He still has some darius ma. I would definitely not discharge him today, probably increase his Lasix dose IV for better diure sis. We will consider cardioversion sometime down the road after 3 weeks of Eliquis. BUTCH/DOTTIE Voice ID: [id number] Report ID: [id number]
[2019-08-30] MEDS ORDERED: FUROSEMIDE 20 MG/ 2ML VIAL IV ONE (15:02)
[2019-08-30] MEDS ORDERED: LORATADINE 10 MG TAB PO PRN (15:03)
[2019-08-30] MEDS: ROPINIROLE HCL 0.25 MG TAB PO SCH (21:01)
[2019-08-30] MEDS: ATORVASTATIN 10 MG TAB PO SCH (21:02)
[2019-08-30] MEDS: TAMSULOSIN 0.4 MG SR CAP PO SCH (21:02)
--- NOTE | 2019-08-30 21:22 | PN ---
Date of Progress Note: 08/30/2019 The patient states he does not feel as well as he did yesterday. He has had episodes of hypotension and dyspnea and seen by Cardiology who suggested increasing the diuresis. This will be done via IV L asix, double the dosing in the next 24 hours and see if this produces the desired results. HR/MODL Voice ID: [id number] Report ID: [id number]
[2019-08-31] MEDS ORDERED: FUROSEMIDE 20 MG/ 2ML VIAL IV ONE (05:00)
[2019-08-31 05:47] LABS: Absolute Lymphocytes (CBC) 1.7 K/uL (0.7-4.9); Basophils % 0.5 % (0-1.3); Hematocrit 37.9 % (39.6-49.0); Lymphocytes % 17.2 % (15.3-44.8); MPV 8.7 fL (7.6-11.3)
[2019-08-31 07:23] LABS: Potassium 4.3 mmol/L (3.5-5.1)
[2019-08-31] MEDS: FUROSEMIDE 20 MG TABLET PO SCH (08:34)
[2019-08-31] MEDS: METOPROLOL TAR 50 MG TAB PO SCH (08:35)
[2019-08-31] MEDS: PANTOPRAZOLE 40MG TABLET PO SCH (08:35)
[2019-08-31] MEDS: APIXABAN 2.5 MG TABLET PO SCH (08:35)
[2019-08-31] MEDS: DULERA 100/5 (MOMETASONE/FORMOTEROL) INHALER IH SCH (08:35)
[2019-08-31 09:25] VITALS: O2SAT 95
[2019-08-31] MEDS ORDERED: ONDANSETRON 4 MG/2 ML VIAL IV PRN (11:26)
--- NOTE | 2019-08-31 12:57 | RAD REPORT ---
EXAM DESCRIPTION: Yodit Single View08/31/2019 12:29 pm CLINICAL HISTORY: Shortness breath COMPARISON: August 28 FINDINGS: Extensive bilateral pulmonary opacities are without obvious change The heart remains enlarged. A hiatal hernia is again demonstrated IMPRESSION: Extensive bilateral interstitial lung opacities without obvious change. I suspect most i f not all this represents pulmonary fibrosis
[2019-08-31 13:17] VITALS: BP 103/74; TEMP 98.6
--- NOTE | 2019-08-31 23:04 | DS ---
Date of Discharge: 08/31/2019 Consultants: Dr. Pacheco and Dr. Aguayo with Cardiology. Admitting Diagnoses: 1.Presyncope. 2.Shortness of breath. 3.Atrial fibrillation with rapid ventricular rate. 4.Acute on chronic systolic heart failure. 5.Chronic kidney disease stage 3. 6.Acute on chronic obstructive pulmonary disease exacerbation. 7.Coronary artery disease, [place] artery and [place] heart, status post stent. 8.Gastroesophageal reflux disease with history of esophageal cancer. 9.Benign prostatic hyperplasia. 10.Restless legs syndrome. 11.Obesity, BMI 33.4. Discharge Diagnoses: 1.Presyncope, resolved. 2.Shortness of breath, improved. 3.Atrial fibrillation with rapid ventricular rate. 4.Acute on chronic systolic heart failure. 5.Acute on chronic obstructive pulmonary disease exacerbation. 6.Chronic kidney disease, stage 3, stable. 7.Coronary artery disease, [place] artery and [place] heart, status post stent without angina. 8.Gastroesophageal reflux disease with history of esophageal cancer. 9.Benign prostatic hyperplasia, stable. 10.Restless legs syndrome. 11.Obesity, BMI 33. Hospital Course: Patient is a 74-year-old male with a history of atrial fibrillation, heart disease, COPD, CVA, comes in with presyncopal episode and shortness of breath. Patient was found to be in at rial fibrillation with RVR, rate of 120s. Chest x-ray showed pulmonary edema. Head CT and neck were unremarkable for acute changes. He does have advanced atrophy. Patient was started on diuretics an d Cardiology was consulted. Echocardiogram was done, showed EF of 50%, showed mild aortic stenosis a nd mild pulmonary hypertension. Repeat chest x-ray showed some minimal improvement. Patient improve d with diuresis. He was weaned off 5 L of oxygen to 3 L, which is his usual baseline. Patient is ve ry inactive at home. Overall, did well. During the course of the hospital stay, kidney function rem ained stable. Patient had lost 6 pounds, diuresed well. He was restarted on Eliquis for his atrial fibrillation and does have history of bleed previously and was taken off Xarelto, however, has tolera dwight Eliquis since being started on the . Patient will need continued Cardiology followup and pos sible MASHA and cardioversion. Patient was then responding well to treatment. His symptoms improved, was seemingly back to baseline. Patient was then cleared for discharge and was sent home in a stable condition. Activity: Fall precautions. Diet: Low-sodium, fluid-restricted diet. Patient to follow up with PCP, Dr. Foster in 2-3 days, fo llow up with bakery technician, Dr. Pacheco in 2 weeks. Return to ER for worsening condition. Medications: As per medication reconciliation list. Physical Examination: General: Awake, alert, oriented x3. Elderly male, no acute distress. Obese. CV: S1, S2. Irregularly irregular. Respiratory: Moving air well bilaterally. No wheezing. No crackles. Gastrointestinal: Abdomen is soft, nontender, nondistended. Positive bowel sounds. Extremities: No clubbing, cyanosis. Trace pedal edema. Neurologic: Nonfocal. Total time spent discharging the patient was 41 minute. Code status is full. SA/MODL Voice ID: [id number] Report ID: [id number]
== END 2019-08-31 14:38 | disposition home or self-care (01) | DRG 308 ==
LOC: ER 10:33 → ERHOLD 14:19 → 2ND 15:35 → OBSVTOIN 08-28 20:54
PROVIDERS: ADMIT Family Medicine; ATTEND Family Medicine
DX: I48.20 Chronic atrial fibrillation, unspecified (principal); I50.23 Acute on chronic systolic (congestive) heart failure; I13.0 Hypertensive heart and chronic kidney disease with heart failure and stage 1 through stage 4 chronic kidney disease, or unspecified chronic kidney disease; J44.1 Chronic obstructive pulmonary disease with (acute) exacerbation; N18.3 Chronic kidney disease, stage 3 (moderate); I25.10 Atherosclerotic heart disease of native coronary artery without angina pectoris; K21.9 Gastro-esophageal reflux disease without esophagitis; G25.81 Restless legs syndrome; E78.5 Hyperlipidemia, unspecified; N40.0 Benign prostatic hyperplasia without lower urinary tract symptoms; Z85.01 Personal history of malignant neoplasm of esophagus; Z86.73 Personal history of transient ischemic attack (TIA), and cerebral infarction without residual deficits
CPT/HCPCS: 36415; 70450; 71045; 71046; 72125; 80048; 80061; 80076; 81003; 81015; 82550; 82553; 82947; 83735; 83880; 84439; 84443; 84484; 85025; 85610; 87040; 87804; 93005; 93306; 94640; 96372; 97110; 97112; 97116; 97161; 97530; 99285; G0378; J1650; J1940; J2405; J7512; J7606

== ENCOUNTER 2019-09-04 17:38 | Inpatient (IN) | payer OTHER ==
[2019-09-04] MEDS ORDERED: ALBUTEROL 2.5 MG/3 ML NEB SOL ONE (18:24)
[2019-09-04] MEDS ORDERED: predniSONE 20 MG TAB ONE (18:25)
[2019-09-04] MEDS ORDERED: IPRATROPIUM BROM 0.5MG/2.5ML ONE (18:25)
[2019-09-04 18:56] LABS: Absolute Lymphocytes (CBC) 0.9 K/uL (0.7-4.9); Basophils % 0.6 % (0-1.3); Hematocrit 39.3 % (39.6-49.0); Lymphocytes % 13.6 % (15.3-44.8); MPV 8.6 fL (7.6-11.3); RBC Red Blood Cell Count 4.41 M/uL (4.33-5.43)
[2019-09-04 18:57] LABS: Protime INR 1.31
[2019-09-04 19:09] LABS: ALT/SGPT 18 U/L (12-78); AST/SGOT 15 U/L (15-37); Albumin 3.3 g/dL (3.4-5.0); Alkaline Phosphatase 59 U/L (45-117); BUN Blood Urea Nitrogen 16 mg/dL (7-18); Bicarbonate 30 mmol/L (21-32); Bilirubin Direct 0.3 mg/dL (0-0.2); Bilirubin Total 0.7 mg/dL (0.2-1.0); Glucose Level 108 mg/dL (74-106); Magnesium 1.9 mg/dL (1.8-2.4); NT PRO-BNP 800 pg/mL (<450); Potassium 3.9 mmol/L (3.5-5.1); Protein, Total 7.5 g/dL (6.4-8.2); Sodium Level 142 mmol/L (136-145); Troponin (Emerg Dept Use Only) < 0.02 ng/mL (0.0-0.045)
--- NOTE | 2019-09-04 19:52 | RAD REPORT ---
EXAM DESCRIPTION: RAD - Chest Single View - 09/04/2019 7:21 pm CLINICAL HISTORY: CHEST PAIN Chest pain. COMPARISON: Chest Single View dated 08/31/2019; Chest Pa And Lat (2 Views) dated 08/28/2019; Chest S jose View dated 08/27/2019; Chest Pa And Lat (2 Views) dated 08/17/2019 FINDINGS: Portable technique limits examination quality. Moderate bilateral pulmonary opacities are noted, mildly progressive since the prior study. Mild pulm onary edema superimposed on chronic fibrotic changes is suspected. The heart is mildly to moderately enlarged in size. No displaced fractures.
--- NOTE | 2019-09-04 20:15 | EDPHYS ---
Physician Documentation [facility] Name: Luiz Jeffery Age: 74 yrs Sex: Male : 1945 Arrival Date: 09/04/2019 Time: 17:40 Bed 30 Private MD: Jean Claude Foster ED Physician Warner Borjas HPI: 09/04 20:06 This 74 yrs old Male presents to ER via Wheelchair with complaints of kdr Breathing Difficulty. 20:06 The patient has shortness of breath at rest, with light activity. Onset: The kdr symptoms/episode began/occurred gradually, 4 day(s) ago. Duration: The symptoms are intermittent, with no pattern. The patient's shortness of breath is aggravated by coughing, exertion, light activity, is alleviated by sitting up, application of supplemental oxygen. 20:10 Associated signs and symptoms: Pertinent positives: productive cough, hemoptysis, kdr nausea, Pertinent negatives: chest pain, diaphoresis, dizziness, fever, loss of consciousness, numbness in extremities, visual changes, vomiting. Severity of symptoms: At their worst the symptoms were moderate in the emergency department the symptoms are unchanged. The patient has experienced similar episodes in the past, chronically. The patient has been recently seen by a physician: The patient has been recently been admitted at [facility], was discharged last week. Historical: - Allergies: 17:56 No Known Allergies; tw2 - Home Meds: 19:01 albuterol sulfate inhalation Inhl [Active]; aspirin 81 mg Oral TbEC 1 tab once daily tw2 [Active]; fluticasone propionate (bulk) 100 % miscellaneous powd [Active]; furosemide 20 mg Oral tab 1 tab once daily [Active]; Furosemide Oral [Active]; Linzess 145 mcg Oral cap 1 cap once daily [Active]; pantoprazole 40 mg Oral TbEC 1 tab once daily [Active]; Potassium Chloride Oral [Active]; prednisone 20 mg Oral tab 0.5 tab 2 times per day [Active]; - PMHx: 17:56 Atrial Fib; CHF; esophageal cancer; COPD; Hyperlipidemia; Myocardial infarction; tw2 - PSHx: 17:56 Heart stents; tw2 - Immunization history:: Adult Immunizations. - Social history:: Smoking status: . - Ebola Screening: : Patient denies travel to an Ebola-affected area in the 21 days before illness onset. ROS: 20:10 Constitutional: Negative for fever, chills, and weight loss, Eyes: Negative for injury, kdr pain, redness, and discharge, Neck: Negative for injury, pain, and swelling, Cardiovascular: Negative for chest pain, palpitations, and edema, Abdomen/GI: Negative for abdominal pain, nausea, vomiting, diarrhea, and constipation, Back: Negative for injury and pain, : Negative for injury, bleeding, discharge, and swelling, MS/Extremity: Negative for injury and deformity, Skin: Negative for injury, rash, and discoloration, Neuro: Negative for headache, weakness, numbness, tingling, and seizure activity. Psych: Negative for depression, anxiety, suicide ideation, homicidal ideation, and hallucinations, Allergy/Immunology: Negative for hives, rash, and allergies, Endocrine: Negative for neck swelling, polydipsia, polyuria, polyphagia, and marked weight changes, Hematologic/Lymphatic: Negative for swollen nodes, abnormal bleeding, and unusual bruising. 20:10 Respiratory: Positive for cough, with rust-colored sputum, dyspnea on exertion, hemoptysis, shortness of breath, wheezing, Negative for orthopnea, pleurisy. Exam: 20:10 Constitutional: This is a well developed, well nourished patient who is awake, alert, kdr and in no acute distress. Head/Face: Normocephalic, atraumatic. Eyes: Pupils equal round and reactive to light, extra-ocular motions intact. Lids and lashes normal. Conjunctiva and sclera are non-icteric and not injected. Cornea within normal limits. Periorbital areas with no swelling, redness, or edema. Neck: Trachea midline, no thyromegaly or masses palpated, and no cervical lymphadenopathy. Supple, full range of motion without nuchal rigidity, or vertebral point tenderness. No Meningismus. Chest/axilla: Normal chest wall appearance and motion. Nontender with no deformity. No lesions are appreciated. Cardiovascular: Regular rate and rhythm with a normal S1 and S2. No gallops, murmurs, or rubs. Normal PMI, no JVD. No pulse deficits. Abdomen/GI: Soft, non-tender, with normal bowel sounds. No distension or tympany. No guarding or rebound. No evidence of tenderness throughout. Back: No spinal tenderness. No costovertebral tenderness. Full range of motion. Skin: Warm, dry with normal turgor. Normal color with no rashes, no lesions, and no evidence of cellulitis. MS/ Extremity: Pulses equal, no cyanosis. Neurovascular intact. Full, normal range of motion. Neuro: Awake and alert, GCS 15, oriented to person, place, time, and situation. Cranial nerves II-XII grossly intact. Motor strength 5/5 in all extremities. Sensory grossly intact. Cerebellar exam normal. Normal gait. Psych: Awake, alert, with orientation to person, place and time. Behavior, mood, and affect are within normal limits. 20:10 Respiratory: mild respiratory distress is noted, Respirations: labored breathing, that is mild, Breath sounds: decreased breath sounds, wheezing: inspiratory that is mild, is heard diffusely, Very minor. Vital Signs: 17:51 BP 121 / 82; Pulse 89; Resp 20; Pulse Ox 93% on R/A; Weight 99.79 kg (R); Pain 0/10; tw2 17:56 Temp 98.6(O); tw2 19:05 BP 116 / 81; Pulse 130; Resp 18; Pulse Ox 99% on 2 lpm NC; tw2 20:00 BP 113 / 87; Pulse 126; Resp 20; Pulse Ox 97% on 2 lpm NC; jb4 21:30 BP 114 / 82; Pulse 120; Resp 19; Pulse Ox 95% on 2 lpm NC; jb4 22:30 BP 127 / 84; Pulse 128; Resp 20; Pulse Ox 95% on 2 lpm NC; jb4 23:30 BP 131 / 95; Pulse 121; Resp 24; Pulse Ox 96% on 2 lpm NC; jb4 17:51 pt placed on 3L nc at this time. tw2 MDM: 20:10 Data reviewed: vital signs, nurses notes, old medical records, lab test result(s), kdr radiologic studies. Counseling: I had a detailed discussion with the patient and/or guardian regarding: the historical points, exam findings, and any diagnostic results supporting the discharge/admit diagnosis, lab results, radiology results, the need for further work-up and treatment in the hospital. 20:14 Patient medically screened. kdr 09/04 18:19 Order name: Basic Metabolic Panel; Complete Time: 19:13 kdr 09/04 18:19 Order name: CBC with Diff; Complete Time: 19:13 kdr 09/04 18:19 Order name: LFT's; Complete Time: 19:13 kdr 09/04 18:19 Order name: Magnesium; Complete Time: 19:13 kdr 09/04 18:19 Order name: NT PRO-BNP; Complete Time: 19:13 kdr 09/04 18:19 Order name: PT-INR; Complete Time: 19:13 kdr 09/04 18:19 Order name: Troponin (emerg Dept Use Only); Complete Time: 19:13 kdr 09/04 20:24 Order name: Urinalysis EDMS 09/04 20:24 Order name: CBC with Automated Diff EDMS 09/04 20:24 Order name: CBC with Automated Diff EDMS 09/04 20:24 Order name: Comprehensive Metabolic Panel EDMS 09/04 20:24 Order name: Comprehensive Metabolic Panel EDMS 09/04 20:24 Order name: Lactate EDMS 09/04 20:24 Order name: Lactate EDMS 09/04 18:19 Order name: XRAY Chest (1 view) [facility] 09/04 18:19 Order name: EKG; Complete Time: 18:20 kdr 09/04 20:24 Order name: CONS Physician Consult EDMS 09/04 20:24 Order name: Magnesium EDMS 09/04 20:24 Order name: Magnesium EDMS 09/04 20:24 Order name: Phosphorus EDMS 09/04 20:24 Order name: Phosphorus EDMS 09/04 20:24 Order name: NT PRO-BNP EDMS 09/04 20:24 Order name: NT PRO-BNP EDMS 09/04 20:24 Order name: Troponin I EDMS 09/04 20:24 Order name: Troponin I EDMS 09/04 20:24 Order name: Troponin I EDMS 09/05 06:05 Order name: Troponin I EDMS 09/05 09:01 Order name: CBC Smear Scan EDMS 09/04 18:19 Order name: Cardiac monitoring; Complete Time: 18:21 kdr 09/04 18:19 Order name: EKG - Nurse/Tech; Complete Time: 19:02 kdr 09/04 18:19 Order name: IV Saline Lock; Complete Time: 18:45 kdr 09/04 18:19 Order name: Labs collected and sent; Complete Time: 18:45 kdr 09/04 18:19 Order name: O2 Per Protocol; Complete Time: 18:21 [facility] 09/04 18:19 Order name: O2 Sat Monitoring; Complete Time: 18:22 [facility] 09/04 20:24 Order name: Heart Healthy EDGA Administered Medications: 18:35 Drug: predniSONE 60 mg Route: PO; tw2 19:06 Follow up: Response: No adverse reaction tw2 18:35 Drug: Albuterol - atroVENT (3:1) (2.5 mg - 0.5 mg) 3 ml Route: Nebulizer; tw2 19:06 Follow up: Response: No adverse reaction tw2 Disposition: 09/04/19 20:14 Hospitalization ordered by Tom Quan for Inpatient Admission. Preliminary diagnosis is COPD Exacerbation, SOB, A-Fib RVR. - Bed requested for Telemetry/MedSurg (Inpatient). - Status is Inpatient Admission. aa5 - Condition is Fair. - Problem is an acute exacerbation. - Symptoms have improved. UTI on Admission? No Signatures: Dispatcher [employer] EDGA Warner Borjas MD MD [facility] Summer Blakely RN RN aa5 Iman Flores RN RN Mraiah Staples RN RN tw2 Corrections: (The following items were deleted from the chart) 22:00 20:14 Hospitalization Ordered by Tom Quan MD for Inpatient Admission. Preliminary cg diagnosis is COPD Exacerbation, SOB, A-Fib RVR. Bed requested for Telemetry/MedSurg (Inpatient). Status is Inpatient Admission. Condition is Fair. Problem is an acute exacerbation. Symptoms have improved. UTI on Admission? No. kdr 09/05 05:22 12 22:00 09/04/2019 20:14 Hospitalization Ordered by Tom Quan MD for Inpatient cg Admission. Preliminary diagnosis is COPD Exacerbation, SOB, A-Fib RVR. Bed requested for [facility] ER HOLD. Status is Inpatient Admission. Condition is Fair. Problem is an acute exacerbation. Symptoms have improved. UTI on Admission? No. cg 09/05 09:08 05:22 09/04/2019 20:14 Hospitalization Ordered by Tom Quan MD for Inpatient aa5 Admission. Preliminary diagnosis is COPD Exacerbation, SOB, A-Fib RVR. Bed requested for Telemetry/MedSurg (Inpatient). Status is Inpatient Admission. Condition is Fair. Problem is an acute exacerbation. Symptoms have improved. UTI on Admission? No. cg
--- NOTE | 2019-09-04 20:15 | ER ---
Nurse's Notes [facility] Name: Luiz Jeffery Age: 74 yrs Sex: Male : 1945 Arrival Date: 09/04/2019 Time: 17:40 Bed 30 Private MD: Jean Claude Foster Diagnosis: COPD Exacerbation, SOB, A-Fib RVR Presentation: 09/04 17:50 Presenting complaint: Patient states: i was here and discharge and still have tw2 shortness of breath and my tells me i pass out because i get so short of breath, i normally use 2 L NC at home but now i have it on 3L. Transition of care: patient was not received from another setting of care. Onset of symptoms was September 04, 2019. Risk Assessment: Do you want to hurt yourself or someone else? Patient reports no desire to harm self or others. Initial Sepsis Screen: Does the patient meet any 2 criteria? No. Patient's initial sepsis screen is negative. Does the patient have a suspected source of infection? No. Patient's initial sepsis screen is negative. Care prior to arrival: None. 17:50 Method Of Arrival: Wheelchair tw2 17:50 Acuity: EMELINA 3 tw2 Triage Assessment: 17:52 General: Appears in no apparent distress. obese, Behavior is calm, cooperative, tw2 appropriate for age. Pain: Denies pain. Respiratory: Reports shortness of breath at rest on exertion Onset: The symptoms/episode began/occurred couple of days, "i think they sent me home too early", the patient has moderate shortness of breath. Historical: - Allergies: 17:56 No Known Allergies; tw2 - Home Meds: 19:01 albuterol sulfate inhalation Inhl [Active]; aspirin 81 mg Oral TbEC 1 tab once daily tw2 [Active]; fluticasone propionate (bulk) 100 % miscellaneous powd [Active]; furosemide 20 mg Oral tab 1 tab once daily [Active]; Furosemide Oral [Active]; Linzess 145 mcg Oral cap 1 cap once daily [Active]; pantoprazole 40 mg Oral TbEC 1 tab once daily [Active]; Potassium Chloride Oral [Active]; prednisone 20 mg Oral tab 0.5 tab 2 times per day [Active]; - PMHx: 17:56 Atrial Fib; CHF; esophageal cancer; COPD; Hyperlipidemia; Myocardial infarction; tw2 - PSHx: 17:56 Heart stents; tw2 - Immunization history:: Adult Immunizations. - Social history:: Smoking status: . - Ebola Screening: : Patient denies travel to an Ebola-affected area in the 21 days before illness onset. Screenin:58 Abuse screen: Denies threats or abuse. Nutritional screening: No deficits noted. tw2 Tuberculosis screening: No symptoms or risk factors identified. Fall Risk Secondary diagnosis (15 points) impaired mobility. Assessment: 17:56 Reassessment: provider at bedside at this time. tw2 17:58 General: Appears in no apparent distress. Behavior is calm, cooperative, appropriate tw2 for age. Pain: Denies pain. Neuro: Level of Consciousness is awake, alert, obeys commands, Oriented to person, place, time, situation. Cardiovascular: Rhythm is atrial fibrillation. Cardiovascular: Heart tones S1 S2. Respiratory: Airway is patent Respiratory effort is even, unlabored, Respiratory pattern is regular, tachypnea Breath sounds are diminished bilaterally. GI: Abdomen is round obese, Bowel sounds present X 4 quads. : No signs and/or symptoms were reported regarding the genitourinary system. EENT: No signs and/or symptoms were reported regarding the EENT system. Derm: No signs and/or symptoms reported regarding the dermatologic system. Musculoskeletal: Range of motion: intact in all extremities. 19:06 Reassessment: Patient appears in no apparent distress at this time. No changes from tw2 previously documented assessment. Patient and/or family updated on plan of care and expected duration. Pain level reassessed. 20:19 Reassessment: Patient appears in no apparent distress at this time. Patient and/or jb4 family updated on plan of care and expected duration. Pain level reassessed. Patient is alert, oriented x 3, equal unlabored respirations, skin warm/dry/pink. 21:00 Reassessment: Patient appears in no apparent distress at this time. Patient and/or jb4 family updated on plan of care and expected duration. Pain level reassessed. Patient is alert, oriented x 3, equal unlabored respirations, skin warm/dry/pink. 22:00 Reassessment: Patient appears in no apparent distress at this time. Patient and/or jb4 family updated on plan of care and expected duration. Pain level reassessed. Patient is alert, oriented x 3, equal unlabored respirations, skin warm/dry/pink. 23:38 Reassessment: Patient appears in no apparent distress at this time. Patient and/or jb4 family updated on plan of care and expected duration. Pain level reassessed. Patient is alert, oriented x 3, equal unlabored respirations, skin warm/dry/pink. PT admitted to ER hold this shift. Vital Signs: 17:51 BP 121 / 82; Pulse 89; Resp 20; Pulse Ox 93% on R/A; Weight 99.79 kg (R); Pain 0/10; tw2 17:56 Temp 98.6(O); tw2 19:05 BP 116 / 81; Pulse 130; Resp 18; Pulse Ox 99% on 2 lpm NC; tw2 20:00 BP 113 / 87; Pulse 126; Resp 20; Pulse Ox 97% on 2 lpm NC; jb4 21:30 BP 114 / 82; Pulse 120; Resp 19; Pulse Ox 95% on 2 lpm NC; jb4 22:30 BP 127 / 84; Pulse 128; Resp 20; Pulse Ox 95% on 2 lpm NC; jb4 23:30 BP 131 / 95; Pulse 121; Resp 24; Pulse Ox 96% on 2 lpm NC; jb4 17:51 pt placed on 3L nc at this time. tw2 ED Course: 17:40 Patient arrived in ED. rg4 17:40 Jean Claude Foster MD is Private Physician. rg4 17:50 Warner Borjas MD is Attending Physician. kdr 17:50 Bed in low position. Call light in reach. Adult w/ patient. patient monitor on. Pulse tw2 ox on. NIBP on. 17:51 Triage completed. tw2 17:52 Arm band placed on. tw2 17:58 Mariah Staples RN is Primary Nurse. tw2 18:35 Missed attempt(s): 20 gauge in left antecubital area. Bleeding controlled, band aid tw2 applied, catheter tip intact. Missed attempt(s): 22 gauge in left antecubital area. Bleeding controlled, band aid applied, catheter tip intact. Inserted saline lock: 22 gauge in right antecubital area, using aseptic technique. Blood collected. 19:05 Report given to JACQUELINE Jasmine. tw2 19:14 Primary Nurse role handed off by Mariah Staples, JACQUELINE tw2 19:21 XRAY Chest (1 view) In Process Unspecified. EDMS 19:30 Israel Doll, RN is Primary Nurse. jb4 20:13 Tom Quan MD is Hospitalizing Provider. kdr 23:40 No provider procedures requiring assistance completed. Patient admitted, IV remains in jb4 place. Administered Medications: 18:35 Drug: predniSONE 60 mg Route: PO; tw2 19:06 Follow up: Response: No adverse reaction tw2 18:35 Drug: Albuterol - atroVENT (3:1) (2.5 mg - 0.5 mg) 3 ml Route: Nebulizer; tw2 19:06 Follow up: Response: No adverse reaction tw2 Outcome: 20:14 Decision to Hospitalize by Provider. kdr 23:40 Admitted to ER Hold. Please see [facility] for further documentation. jb4 23:40 Condition: stable 23:40 Discharge instructions given to patient, family, Instructed on the need for admit, Demonstrated understanding of instructions. 09/05 09:00 Admitted to Tele accompanied by tech, via stretcher, with oxygen, with chart, Report aa5 called to JACQUELINE Holman Condition: stable 09:08 Patient left the ED. aa5 Signatures: Dispatcher [employer] EDMS Warner Borjas MD MD kdr Calderon, Audri RN RN aa5 Mariah Staples, RN RN 2 Shruthi Flores [facility] Israel Doll, RN RN jb4
[2019-09-04] MEDS ORDERED: ONDANSETRON 4 MG/2 ML VIAL IV PRN (20:20)
[2019-09-04] MEDS ORDERED: CEFTRIAXONE 1 GM/NS 50 ML 1 GM/50 ML BAG IV SCH (21:00)
[2019-09-04] MEDS: APIXABAN 2.5 MG TABLET PO SCH (21:00)
[2019-09-04] MEDS ORDERED: NA CHLORIDE 0.9% 1,000 ML IV SCH (21:00)
[2019-09-04] MEDS: METOPROLOL TAR 50 MG TAB PO SCH (21:00)
[2019-09-04] MEDS ORDERED: METOPROLOL TAR 50 MG TAB ONE (22:42)
[2019-09-04] MEDS ORDERED: CEFTRIAXONE 1000 MG/VIAL ONE (22:42)
[2019-09-04] MEDS ORDERED: NA CHLORIDE 0.9% 1,000 ML ONE (22:42)
[2019-09-04] MEDS ORDERED: NA CHLORIDE 0.9% 50 ML IV ONE (22:42)
[2019-09-04] MEDS ORDERED: APIXABAN 2.5 MG TABLET ONE (22:58)
[2019-09-05] MEDS ORDERED: METHYLPREDNISOLONE 125 MG INJ ONE (00:33)
[2019-09-05] MEDS ORDERED: DIGOXIN 0.25 MG/ML AMP IV SCH (02:00)
[2019-09-05] MEDS ORDERED: DIGOXIN 0.25 MG/ML AMP ONE (02:44)
[2019-09-05 05:46] LABS: Absolute Lymphocytes (CBC) 0.4 K/uL (0.7-4.9); Basophils % 0.2 % (0-1.3); Hematocrit 38.1 % (39.6-49.0); Lymphocytes % 6.8 % (15.3-44.8); MPV 8.7 fL (7.6-11.3); RBC Red Blood Cell Count 4.33 M/uL (4.33-5.43)
[2019-09-05] MEDS ORDERED: ONDANSETRON 4 MG (ODT) TAB PO PRN (05:49)
[2019-09-05] MEDS ORDERED: HOME MED 1 EA UNK (Linaclotide [Linzess] 145 MCG) PO PRN (05:49)
[2019-09-05 05:55] VITALS: BMI 32.5
[2019-09-05] MEDS: METHYLPREDNISOLONE 125 MG INJ IV SCH ×3 (06:00→11:20)
[2019-09-05 06:05] LABS: ALT/SGPT 18 U/L (12-78); AST/SGOT 14 U/L (15-37); Alkaline Phosphatase 49 U/L (45-117); BUN Blood Urea Nitrogen 19 mg/dL (7-18); Bicarbonate 27 mmol/L (21-32); Bilirubin Total 0.5 mg/dL (0.2-1.0); Glucose Level 216 mg/dL (74-106); Magnesium 1.7 mg/dL (1.8-2.4); NT PRO-BNP 705 pg/mL (<450); Phosphorus 1.6 mg/dL (2.5-4.9); Potassium 4.6 mmol/L (3.5-5.1); Protein, Total 6.8 g/dL (6.4-8.2); Sodium Level 140 mmol/L (136-145); Troponin I < 0.02 ng/mL (0.0-0.045)
[2019-09-05] MEDS ORDERED: METHYLPREDNISOLONE 40 MG INJ ONE (06:12)
[2019-09-05] MEDS: PANTOPRAZOLE 40MG TABLET PO SCH (06:50)
[2019-09-05] MEDS ORDERED: FUROSEMIDE 20 MG/ 2ML VIAL ONE (06:53)
[2019-09-05] MEDS: FUROSEMIDE 40 MG/4 ML VIAL IV SCH ×3 (06:55→18:25)
--- NOTE | 2019-09-05 08:02 | EKG ---
Test Date: 2019-09-04 Test Time: 18:57:55 Returner: CARLA MEASUREMENT RESULTS: Intervals: Rate: 134 VT: QRSD: 74 QT: 322 QTc: 480 [place]: P: VT: QRS: -7 T: 46 INTERPRETIVE STATEMENTS: Atrial fibrillation with rapid ventricular response with premature ventricular or aberrantly conducted complexes ST & T wave abnormality, consider anterior ischemia Abnormal ECG Compared to ECG 08/27/2019 13:23:06 Possible ischemia now present ST (T wave) deviation still present Electronically Signed On 09-05-19 08:01:17 CUTTER FIRST by Mike Pacheco
[2019-09-05 08:58] LABS: Blood Morphology Comment NOT SEEN (NOT SEEN); Platelet Estimate ADEQ; Urine White Blood Cell Casts OK
[2019-09-05] MEDS ORDERED: TAMSULOSIN 0.4 MG SR CAP PO SCH (09:00)
[2019-09-05] MEDS ORDERED: CEFTRIAXONE/SWI 1gm 1 GM/10 ML SYR IV SCH (09:00)
--- NOTE | 2019-09-05 09:14 | P.HP ---
Certification for Inpatient Patient admitted to: Inpatient Patient will require the following post-hospital care: None Practitioner: I am a practitioner with admitting privileges, knowledge of patient current condition, hospital course, and medical plan of care. Services: Services provided to patient in accordance with Admission requirements found in Title 42 Section 412.3 of the Code of Federal Regulations Patient History Date of Service: 09/04/19 Reason for admission: SHORTNESS OF BREATH History of Present Illness: PATIENT IS A 74-YEAR-OLD GENTLEMAN WHO CAME INTO THE HOSPITAL WITH DIFFICULTY BREATHING. PATIENT WAS IN THE HOSPITAL ABOUT A WEEK AGO WITH SIMILAR ISSUES. HE DID NOT GET BETTER AND HE CAME BACK TO THE HOSPITAL AFTER TALKING TO HIS PCP. IN THE EMERGENCY ROOM PATIENT WAS TACHYPNEIC AND WAS IN AFIB WITH RVR. PATIENT'S CHEST X-RAY REVEALED CHF EXACERBATION. PATIENT ALSO LOOKS TO HAVE COPD AND MAY BE HAVING A COPD EXACERBATION WELL. PATIENT HAS BEEN DIURESED IN THE EMERGENCY ROOM. PATIENT'S SYMPTOMS ARE IMPROVING. PATIENT WILL BE ADMITTED TO THE HOSPITAL FOR FURTHER EVALUATION. Allergies No Known Allergies Allergy (Verified 03/27/18 12:09) Home Medications: Aspirin [Low Dose Aspirin EC] 81 mg PO BEDTIME 12/22/14 Pantoprazole [Protonix Tab*] 40 mg PO [id number] 12/22/14 Simvastatin 20 mg PO BEDTIME 12/22/14 Spironolactone [Aldactone] 50 mg PO DAILY 12/22/14 Furosemide 20 mg PO DAILY 06/07/17 Fluticasone [Flonase 50MCG Nasal [place]*] 2 sprays NS PRN PRN 03/27/18 Ropinirole HCl [Requip*] 1 tab PO BEDTIME 03/27/18 Albuterol Sulfate [Albuterol Sulfate 0.083% Neb Soln] 2.5 mg IH TIDP PRN Albuterol Sulfate [Ventolin Hfa] 2 inh IH QIDP PRN 08/27/19 Cholecalciferol (Vitamin D3) [Vitamin D3] 1 cap PO EVERY 7TH DAY 08/27/19 Fluticasone/Umeclidin/Vilanter [Trelegy Ellipta 100-62.5-25] 1 each IH BEDTIME 08/27/19 Linaclotide [Linzess] 145 mcg PO PRN PRN 08/27/19 Potassium Chloride 20 meq PO DAILY 08/27/19 Tamsulosin HCl 0.4 mg PO DAILY 08/27/19 predniSONE [Prednisone*] 20 mg PO DAILY 08/27/19 Apixaban [Eliquis *] 2.5 mg PO BID #60 tablet 08/31/19 Ondansetron [Zofran (Odt)*] 1 tab PO Q4H PRN 08/31/19 - Past Medical/Surgical History Has patient received pneumonia vaccine in the past: Yes Diabetic: No -: CHF, systolic dysfunction -: COPD -: Chronic atrial fibrillation not on chronic anti coagulation therapy -: HTN -: CAD with prior stent -: Hyperlipidemia -: History of esophageal cancer -: GERD -: BPH -: Restless leg syndrome -: Exploratory esophageal surgery (February 2013) -: Esophageal cancer resection (March 2013) -: Esophageal ablation (June 28, 2013) -: heart stents -: catracho cataract Psychosocial/ Personal History: Patient lives at home. - Family History Father Medical History: Heart disease, Other (see notes) Notes: Heart attack Mother Medical History: Heart disease, Other (see notes) Notes: CHF Brother Medical History: Heart disease Notes: [place] X2 - Social History Smoking Status: Former smoker CD- Drugs: No Caffeine use: Yes Place of Residence: Home Review of Systems 10-point ROS is otherwise unremarkable Physical Examination - Vital Signs Temperature: 97.7 F Blood Pressure: 150/87 Pulse: 90 Respirations: 22 Pulse Ox (%): 95 - Physical Exam General: Alert, In no apparent distress, Oriented x3 HEENT: Atraumatic, PERRLA, Mucous membr. moist/pink, EOMI, Sclerae nonicteric Neck: Supple, 2+ carotid pulse no bruit, No LAD, Without JVD or thyroid abnormality Respiratory: Crackles/rales Cardiovascular: Irregular heart rate/rhythm, Systolic murmur Gastrointestinal: Normal bowel sounds, Soft and benign, Non-distended, No tenderness Musculoskeletal: No clubbing, No tenderness, Swelling Integumentary: No rashes Neurological: Normal gait, Normal speech, Normal strength at 5/5 x4 extr, Normal tone, Sensation intact, Cranial nerves 3-12 intact, Normal affect Lymphatics: No axilla or inguinal lymphadenopathy - Studies Laboratory Data (last 24 hrs) 09/04/19 18:37: PT 15.3 H, INR 1.31 09/04/19 18:37: WBC 6.8 D, Hgb 13.2 L, Hct 39.3 L, Plt Count 198 09/04/19 18:37: Sodium 142, Potassium 3.9, BUN 16, Creatinine 1.31 H, Glucose 108 H, Magnesium 1.9, Total Bilirubin 0.7, AST 15, ALT 18, Alkaline Phosphatase 59 Assessment & Plan - Problems (Diagnosis) (1) Acute exacerbation of congestive heart failure Current Visit: Yes Status: Acute (2) Atrial fibrillation with rapid ventricular response Current Visit: Yes Status: Acute (3) Acute and chronic respiratory failure Onset Date: 06/08/17 Current Visit: No Status: Acute Qualifiers: Respiratory failure complication: hypoxia Qualified Code(s): J96.21 - Acute and chronic respiratory failure with hypoxia (4) COPD with acute exacerbation Onset Date: 03/28/18 Current Visit: No Status: Acute (5) CHF (congestive heart failure) Onset Date: 03/28/18 Current Visit: No Status: Chronic Qualifiers: Heart failure type: combined systolic and diastolic Heart failure chronicity: chronic Qualified Code(s): I50.42 - Chronic combined systolic ( congestive) and diastolic (congestive) heart failure (6) Hyperlipidemia Onset Date: 03/28/18 Current Visit: No Status: Chronic Qualifiers: Hyperlipidemia type: mixed hyperlipidemia Qualified Code(s): E78.2 - Mixed hyperlipidemia (7) Hypertension Onset Date: 03/28/18 Current Visit: No Status: Chronic Qualifiers: Hypertension type: essential hypertension (8) Pulmonary fibrosis Onset Date: 03/28/18 Current Visit: No Status: Chronic - Plan 1. I WILL REVIEW ECHOCARDIOGRAM; CONTINUED DIURESING 2. CONTINUE WITH TREATMENT FOR PULMONARY FIBROSIS. PULMONARY CONSULTATION 3. CONTINUE BETA-LANA FOR RATE CONTROL WELL ANTICOAGULATION 4. CARDIOLOGY CONSULTATION 5. AGGRESSIVE DIURESIS 6. STRICT I'S AND O'S 7. REPEAT CXR 8. DAILY WEIGHTS 9. EDUCATION REGARDING DIET AND TREATMENT OF CONGESTIVE HEART FAILURE Discharge Plan: Home Plan to discharge in: Greater than 2 days - Advance Directives Does patient have a Living Will: No Does patient have a Durable POA for Healthcare: No - Code Status/Comfort Care Code Status Assessed: Yes Code Status: Full Code Critical Care: No Time Spent Managing PTS Care (In Minutes): 45
[2019-09-05] MEDS ORDERED: MAGNESIUM SULFATE 1 gm IVPB 1 GM/100 ML BAG IV ONE (09:49)
[2019-09-05 10:53] LABS: Urine Appearance CLEAR; Urine Bilirubin NEGATIVE (NEG); Urine Blood NEGATIVE (NEG); Urine Color YELLOW; Urine Glucose NEGATIVE (NEG); Urine Protein NEGATIVE (NEG); Urine Specific Gravity <=1.005 (1.005-1.030); Urine Urobilinogen 0.2 mg/dL (0.2-1.0); Urine pH 6.5 (5.0-7.0)
[2019-09-05] MEDS: IPRATROPIUM BROM 0.5MG/2.5ML NEB PRN ×3 (11:09→20:35)
[2019-09-05] MEDS: ALBUTEROL 2.5 MG/3 ML NEB SOL NEB PRN ×3 (11:09→20:35)
[2019-09-05 11:19] LABS: Urine Microscopic Reflex NO UMIC
[2019-09-05] MEDS: POTASSIUM CL SA 10 MEQ TAB PO SCH (11:19)
[2019-09-05] MEDS: POTASS/SODIUM PHOSPHATE 1 PKT POWD.PACK PO SCH ×3 (11:19→13:11)
[2019-09-05] MEDS: METOPROLOL TAR 50 MG TAB PO SCH ×2 (11:19→20:26)
[2019-09-05] MEDS: SPIRONOLACTONE 25 MG TABLET PO SCH (11:20)
[2019-09-05] MEDS: APIXABAN 2.5 MG TABLET PO SCH ×2 (11:20→20:26)
--- NOTE | 2019-09-05 11:22 | CON ---
Mr. Jeffery is 74. History Of Present Illness: He came to the hospital with dyspnea, cough, congestion, was found to be in pulmonary edema. He was in our hospital within the last couple of weeks. He has chronic AFib. He is not a patient being safely anticoagulated. He once bled to the hemoglobin less than 7 and had angiodysplasia. No focal point of bleeding. He is on a subtherapeutic dose of apixaban right now, b ia as an outpatient, he has not been on apixaban. He is given Lasix to take. We wanted him to take 80 mg a day. He talked his other doctors, have been giving him a lower dose and is not even taking t hat and has slowly become edematous. He has gained several pounds in weight and has orthopnea. His chest x-ray looks like interstitial pulmonary edema. Physical Examination: Vital Signs: His blood pressure is 150/87, heart rate 90, respiratory rate 22. He is 5 feet 9 inche s, 220 pounds. General: Obese, alert, oriented, pleasant, cooperative, not in distress. Lungs: Clear above, but there are a few basal crackles. Heart: Irregularly irregular. No significant murmur. Abdomen: Soft. Extremities: Mild edema. Impression: Mr. Jeffery has gone into pulmonary edema because he refuses to take his diuretic, ma kes him pee too much and he just does not like to do it. He had an echocardiogram as recently as Aug, so that does not need to be repeated. He has heart failure with normal ejection fraction. He has mild aortic stenosis, mild pulmonary hypertension, chronic atrial fibrillation. My impressio n is the patient should probably have a urological evaluation and I suspect he has a neurogenic bladd er and probably never completely empties and therefore has to pee day and night and even 1 small dose of Lasix makes him miserable, so we need to get his bladder function assessed by a urologist. We ca n start by getting a postvoid residual. I am asking Dr. Foster if he agrees that a urology consult would be useful. So he needs to get on diuresis, lose 8-10 pounds of body fluid, stay on diuretics a s an outpatient. Regarding his atrial fibrillation, we are going to get him rate control but no medical charge entry specialist benitez long-term anticoagulation. SH/MODL Voice ID: [id number] Report ID: [id number]
--- NOTE | 2019-09-05 12:48 | P.CNS ---
Date of Consult: 09/05/19 Chief Complaint: SHORTNESS OF BREATH History of Present Illness: Pt has been blacking ut with urinary incont for thepast 2 wks. SOb is worse . No cough . LE edema. NBon conpliantiwth lasix. No fever or chills. Non compliant with CPAP . No fever or chills Allergies No Known Allergies Allergy (Verified 03/27/18 12:09) Home Medications: Aspirin [Low Dose Aspirin EC] 81 mg PO BEDTIME 12/22/14 Pantoprazole [Protonix Tab*] 40 mg PO [id number] 12/22/14 Simvastatin 20 mg PO BEDTIME 12/22/14 Spironolactone [Aldactone] 50 mg PO DAILY 12/22/14 Furosemide 20 mg PO DAILY 06/07/17 Fluticasone [Flonase 50MCG Nasal [place]*] 2 sprays NS PRN PRN 03/27/18 Ropinirole HCl [Requip*] 1 tab PO BEDTIME 03/27/18 Albuterol Sulfate [Albuterol Sulfate 0.083% Neb Soln] 2.5 mg IH TIDP PRN Albuterol Sulfate [Ventolin Hfa] 2 inh IH QIDP PRN 08/27/19 Cholecalciferol (Vitamin D3) [Vitamin D3] 1 cap PO EVERY 7TH DAY 08/27/19 Fluticasone/Umeclidin/Vilanter [Trelegy Ellipta 100-62.5-25] 1 each IH BEDTIME 08/27/19 Linaclotide [Linzess] 145 mcg PO PRN PRN 08/27/19 Potassium Chloride 20 meq PO DAILY 08/27/19 Tamsulosin HCl 0.4 mg PO DAILY 08/27/19 predniSONE [Prednisone*] 20 mg PO DAILY 08/27/19 Apixaban [Eliquis *] 2.5 mg PO BID #60 tablet 08/31/19 Ondansetron [Zofran (Odt)*] 1 tab PO Q4H PRN 08/31/19 - Past Medical/Surgical History Diabetic: No -: CHF, systolic dysfunction -: COPD -: Chronic atrial fibrillation not on chronic anti coagulation therapy -: HTN -: CAD with prior stent -: Hyperlipidemia -: History of esophageal cancer -: GERD -: BPH -: Restless leg syndrome -: Exploratory esophageal surgery (February 2013) -: Esophageal cancer resection (March 2013) -: Esophageal ablation (June 28, 2013) -: heart stents -: catracho cataract Psychosocial/ Personal History: Patient lives at home. - Family History Father Medical History: Heart disease, Other (see notes) Notes: Heart attack Mother Medical History: Heart disease, Other (see notes) Notes: CHF Brother Medical History: Heart disease Notes: [place] X2 - Social History Smoking Status: Unknown if ever smoked Alcohol use: No CD- Drugs: No Caffeine use: Yes Place of Residence: Home Review of Systems General: Weakness Respiratory: Cough, Shortness of Breath Cardiovascular: Edema Physical Examination Temp Pulse Resp BP Pulse Ox 97.7 F 90 22 H 150/87 H 95 09/05/19 09:17 09/05/19 11:20 09/05/19 09:17 09/05/19 11:20 09/05/19 09:17 General: Alert, In no apparent distress, Oriented x3 Respiratory: Crackles/rales Cardiovascular: Edema, Irregular heart rate/rhythm Gastrointestinal: Normal bowel sounds, Soft and benign Laboratory Data (last 24 hrs) 09/04/19 18:37: PT 15.3 H, INR 1.31 09/04/19 18:37: WBC 6.8 D, Hgb 13.2 L, Hct 39.3 L, Plt Count 198 09/04/19 18:37: Sodium 142, Potassium 3.9, BUN 16, Creatinine 1.31 H, Glucose 108 H, Magnesium 1.9, Total Bilirubin 0.7, AST 15, ALT 18, Alkaline Phosphatase 59 - Problems (1) Acute exacerbation of congestive heart failure Current Visit: Yes Status: Acute Plan: PT AW syncopal spells. Non compliant. with LAsix. ILD on CXRY with elevated BNP. Non compliant with BIPAP Pt has O2 at home. In AFib. D/C AB. NE of sepsis. Changeot PO pred. NormaLTSH 08/2019 Qualifiers: Heart failure type: diastolic Qualified Code(s): I50.33 - Acute on chronic diastolic (congestive) heart failure
[2019-09-05 14:05] LABS: Arterial Blood Carboxyhemoglob 1.9 % (0-1.5); Blood Gas Oxyhemoglobin 95.2 % (94-97); Blood O2 Saturation 97.6 % (92-98.5)
[2019-09-05] MEDS: predniSONE 20 MG TAB PO SCH (20:26)
[2019-09-05] MEDS: TERAZOSIN HCL 1 MG CAP PO SCH (20:26)
[2019-09-05] MEDS: ATORVASTATIN 10 MG TAB PO SCH (20:26)
[2019-09-05] MEDS: ROPINIROLE HCL 0.25 MG TAB PO SCH (20:26)
[2019-09-05] MEDS: ASPIRIN EC 81 MG TAB PO SCH (20:26)
[2019-09-05] MEDS ORDERED: POTASS/SODIUM PHOSPHATE 1 PKT POWD.PACK PO SCH (20:30)
--- NOTE | 2019-09-05 23:50 | PN ---
Date of Progress Note: 09/05/2019 Subjective: The patient states he feels somewhat better tonight. He is still having problems with u rination and with the residuals after voiding still high. We will consult Urology. I think this is a major issue in his overall health as he does not take the diuretic because of bladder dysfunction. If this can be controlled better fashion, we may well prevent episodes like the last 2 which has req uired this hospitalization. HR/MODL Voice ID: [id number] Report ID: [id number]
[2019-09-06] MEDS: FUROSEMIDE 40 MG/4 ML VIAL IV SCH (00:13)
[2019-09-06] MEDS: ACETAMINOPHEN 500 MG TAB PO PRN ×2 (03:30→12:15)
[2019-09-06 04:16] LABS: Absolute Lymphocytes (CBC) 0.5 K/uL (0.7-4.9); Hematocrit 36.1 % (39.6-49.0); Lymphocytes % 3.8 % (15.3-44.8); MPV 8.9 fL (7.6-11.3); RBC Red Blood Cell Count 4.15 M/uL (4.33-5.43)
[2019-09-06 04:47] LABS: Magnesium 1.9 mg/dL (1.8-2.4); Phosphorus 3.6 mg/dL (2.5-4.9); Potassium 4.1 mmol/L (3.5-5.1)
[2019-09-06] MEDS: PANTOPRAZOLE 40MG TABLET PO SCH (05:17)
[2019-09-06 05:32] LABS: Blood Morphology Comment NOT SEEN (NOT SEEN); Platelet Estimate ADEQ
[2019-09-06] MEDS ORDERED: FUROSEMIDE 20 MG TABLET PO SCH (09:00)
[2019-09-06] MEDS: METOPROLOL TAR 50 MG TAB PO SCH (09:00)
[2019-09-06] MEDS: SPIRONOLACTONE 25 MG TABLET PO SCH (09:17)
[2019-09-06] MEDS: POTASSIUM CL SA 10 MEQ TAB PO SCH (09:18)
[2019-09-06] MEDS: APIXABAN 2.5 MG TABLET PO SCH ×2 (09:18→21:57)
[2019-09-06] MEDS: predniSONE 20 MG TAB PO SCH (09:18)
--- NOTE | 2019-09-06 11:00 | PN ---
Mr. Jeffery is much improved today. We gave him Hytrin 2 mg last night and I think perhaps if he was on a dose of Hytrin carefully titrated, so he does not get immediately orthostatic, maybe he coul d tolerate the Lasix better. If he stops his Lasix, it will be back again. He understands this, so I think a urological consultation is important. NAE Voice ID: [id number] Report ID: [id number]
[2019-09-06] MEDS: FUROSEMIDE 20 MG TABLET PO SCH ×2 (11:11→17:06)
[2019-09-06] MEDS: METOPROLOL TAR 25 MG TAB PO SCH ×2 (17:03→17:50)
[2019-09-06] MEDS: ALBUTEROL 2.5 MG/3 ML NEB SOL NEB PRN (20:20)
[2019-09-06] MEDS: IPRATROPIUM BROM 0.5MG/2.5ML NEB PRN (20:20)
[2019-09-06] MEDS ORDERED: TAMSULOSIN 0.4 MG SR CAP PO SCH (21:00)
[2019-09-06] MEDS: ROPINIROLE HCL 0.25 MG TAB PO SCH (21:56)
[2019-09-06] MEDS: ASPIRIN EC 81 MG TAB PO SCH (21:57)
[2019-09-06] MEDS: ATORVASTATIN 10 MG TAB PO SCH (21:57)
[2019-09-06] MEDS: predniSONE 10 MG TAB PO SCH (21:57)
[2019-09-06] MEDS: TERAZOSIN HCL 1 MG CAP PO SCH (22:01)
--- NOTE | 2019-09-07 00:12 | PN ---
Date of Progress Note: 09/06/2019 Tonight, the patient states he feels considerably better and he does look much more comfortable. He seems to be having trouble breathing and the peripheral edema has decreased. He had 1 significant ep isode of choking while he was swallowing and taking a deep breath, which he says happens about once a week at home. However, once this is cleared, he tolerated diet fine. There has been some question about his medication and with the patient and his as he has been off his Flomax which may be contributing to his urinary tract symptoms, which may be contributing to not taking his Lasix . In any event, it was stressed that he needs to take medicine and keep track of all his medications so his physicians can react accordingly. The other problem he has had is hypotension and he has not been on beta blockers since he was on sotalol a number of years ago, however, he still hypotensive. However, he has also had some atrial fibrillation and his morning dose of 25 mg was held, his evenin g dose was given the probability that going home tomorrow is likely and at that time, a decision coul d be made as to what doses and frequency of his beta-florina coordinate his Lasix dose, wh ich he had been on 40 in the past, however, been relatively p.r.n. basis since and none as of late wi th the Flomax assuming that this helps his urination. He should be able to tolerate the Lasix and th en can adjust the doses accordingly. HR/MODL Voice ID: [id number] Report ID: [id number]
[2019-09-07] MEDS: METOPROLOL TAR 25 MG TAB PO SCH (06:27)
[2019-09-07] MEDS: PANTOPRAZOLE 40MG TABLET PO SCH (06:28)
--- NOTE | 2019-09-07 07:58 | RAD REPORT ---
EXAM DESCRIPTION: RAD - Chest Pa And Lat (2 Views) - 09/07/2019 7:28 am CLINICAL HISTORY: f/u on edema, shortness of breath, edema COMPARISON: September 04 TECHNIQUE: PA and lateral views of the chest were obtained. FINDINGS: The lungs are normal volume. Diffuse interstitial opacification is present but improved fr om prior imaging. No new mass or consolidation. Small pleural fluid collections have likely decreased or resolved. Heart size is slightly decreased from comparison. No pneumothorax. No acute bony find ing noted. No aortic abnormality. IMPRESSION: Significant reduction in the CHF/ volume overload pattern seen September 04. Mild to moderate edema changes remain.
[2019-09-07] MEDS: predniSONE 10 MG TAB PO SCH (08:38)
[2019-09-07] MEDS: SPIRONOLACTONE 25 MG TABLET PO SCH (08:39)
[2019-09-07] MEDS: FUROSEMIDE 20 MG TABLET PO SCH (08:40)
[2019-09-07] MEDS: APIXABAN 2.5 MG TABLET PO SCH (08:40)
[2019-09-07] MEDS: POTASSIUM CL SA 10 MEQ TAB PO SCH (08:40)
[2019-09-07 08:49] VITALS: TEMP 97.1
--- NOTE | 2019-09-07 11:14 | RAD REPORT ---
EXAM DESCRIPTION: RAD - Barium Swallow Modified - 09/07/2019 11:07 am CLINICAL HISTORY: Dysphagia, choking episodes COMPARISON: None. TECHNIQUE: The patient was given liquid, semi-solid and solid forms of barium. Lateral view fluorosc opic imaging was performed in conjunction with speech pathology service. FINDINGS: Cineloop acquisitions: 25 Fluoro time: 4 minutes 2 seconds Laryngeal penetration: Cleared with thin barium via straw with chin tuck. and 2 hard coughs with resw allows. NOT cleared with thin cup sip (large bolus) Pharyngeal residue: Vallecular - trace with all consistencies,cleared on subsequent swallow Pyriform - minimum trace with all consistencies 1 sec swallow delay C4-C5 osteophyte and /or preminent cricopharyngeus. Decreased UES relaxation. Retropulsion of bolus back into pharynx with all consistencies (weak UES constriction) IMPRESSION: Modified barium swallow as summarized above and fully detailed on speech pathology repor gilberto
[2019-09-07 12:06] VITALS: O2SAT 96
[2019-09-07 12:10] VITALS: BP 109/79
--- NOTE | 2019-09-07 19:13 | PN ---
Date of Progress Note: 09/07/2019 The patient states he feels much better. He has been taking significant amount of Lasix compared to what he was doing at home. Obviously, this is improved both clinically and physically. Peripheral e jessica is down. Chest x-ray showed decrease in cardiomegaly, decrease in the CHF pattern and pleural e ffusion, and he is voiding better. He is instructed to continue with the Flomax, Lasix at home could be changed to 20 b.i.d. and with the atrial fibrillation with the addition of Lopressor 25 mg b.i.d. will also be done. He is to be seen also next week. HR/MODL Voice ID: [id number] Report ID: [id number]
--- NOTE | 2019-09-11 15:17 | CON ---
History Of Present Illness: This is a 74-year-old gentleman came in the hospital with COPD, shortness of breath, AFib, _ history of BPH and he was prescribed tamsulosin, but he said he has not been taking at home. Certainly when he came here, he told the nurses to allow his home medications that have not been reordered so far. He has been complaining of some dribbling and the nurses did the postvoid residual twice. It was 200 cc at one time and then 240 at next time. I think it will be best to go ahead and start his Flomax now, which I ordered. Allergies: NO KNOWN DRUG ALLERGIES. Home Medications: Aspirin, Protonix, simvastatin, spironolactone, furosemide, fluticasone, Requip, albuterol, vitamin D3, fluticasone, Linzess, potassium chloride, tamsulosin, prednisone, Eliquis, and Zofran. Past Medical History: CHF; systolic dysfunction; COPD; chronic atrial fibrillation, not on anticoagulation therapy; hypertension; coronary artery disease; depression; hyperlipidemia; history of esophageal cancer; GERD; BPH; restless legs syndrome; _; esophageal cancer, resection in March 2013; esophageal _. Psychosocial: Patient lives at home. Family in the room. Family History: Significant for heart disease. Mother had heart disease. Brother had heart disease. Social History: Former smoker. No drugs. Use caffeine. Resides at home. Review of Systems: Ten-point review of systems otherwise unremarkable. Physical Examination: Vital Signs: Heart rate 104, respiratory rate 19, BP 106/74. General: The patient was having lunch and night have aspirated. Recommend consulting Respiratory, Dr. Rice for extraction. HEENT: Atraumatic, normocephalic. Neck: Supple. Respiratory: Clear. Cardiovascular: S1, S2. Abdomen: Normal bowel sounds. Skin: No rashes. Neurologic: Normal gait. Normal speech. Laboratory Studies: Reviewed. CBC stable. Chemistries showed sodium 138, potassium 4.1, chloride 104, bicarb 27, BUN 29, creatinine 1.48. Postvoid UA is negative. Coags; PT 15.3, INR 1.3. CBC; white count 14,000 up from 6 yesterday, H and H 12 and 36, platelet count 160. Assessment: BPH, worsening symptoms without his Flomax. Plan: Go ahead and restart Flomax and see how the patient does. NIKI/DOTTIE Voice ID: [id number] Report ID: [id number]
== END 2019-09-07 15:01 | disposition home or self-care (01) | DRG 291 ==
LOC: ER 17:38 → ERHOLD 20:20 → 4TH 09-05 07:19
PROVIDERS: ADMIT Hospitalist; ATTEND Hospitalist
DX: I50.23 Acute on chronic systolic (congestive) heart failure (principal); J96.21 Acute and chronic respiratory failure with hypoxia; I48.20 Chronic atrial fibrillation, unspecified; J44.1 Chronic obstructive pulmonary disease with (acute) exacerbation; I25.10 Atherosclerotic heart disease of native coronary artery without angina pectoris; I35.0 Nonrheumatic aortic (valve) stenosis; G25.81 Restless legs syndrome; N40.0 Benign prostatic hyperplasia without lower urinary tract symptoms; I11.0 Hypertensive heart disease with heart failure; E78.5 Hyperlipidemia, unspecified; J84.10 Pulmonary fibrosis, unspecified; Z85.01 Personal history of malignant neoplasm of esophagus; Z87.891 Personal history of nicotine dependence; Z95.5 Presence of coronary angioplasty implant and graft; Z91.19 Patient's noncompliance with other medical treatment and regimen
CPT/HCPCS: 36415; 71045; 71046; 74230; 80048; 80053; 80076; 81003; 82805; 83605; 83735; 83880; 84100; 84484; 85025; 85610; 92611; 93005; 94640; 94760; 99285; J0696; J1160; J1940; J2920; J2930; J3475; J7030; J7512

== ENCOUNTER 2019-10-21 12:16 | Inpatient (IN) | payer OTHER ==
[2019-10-21] MEDS ORDERED: CEFTRIAXONE/SWI 1gm 1 GM/10 ML SYR ONE (12:35)
[2019-10-21] MEDS ORDERED: NA CHLORIDE 0.9% 1,000 ML ONE ×2 (12:35→17:53)
[2019-10-21] MEDS ORDERED: IPRATROPIUM BROM 0.5MG/2.5ML ONE (12:35)
[2019-10-21] MEDS ORDERED: LEVALBUTEROL 1.25 MG/3 ML NEB ONE ×2 (12:35→12:44)
[2019-10-21] MEDS ORDERED: Magnesium Sulfate 2gm IVPB 2 G/50 ML BAG IV ONE (12:35)
--- NOTE | 2019-10-21 12:42 | RAD REPORT ---
EXAM DESCRIPTION: RAD - Chest Single View - 10/21/2019 12:36 pm CLINICAL HISTORY: CHEST PAIN Chest pain. COMPARISON: Chest Pa And Lat (2 Views) dated 09/07/2019; Chest Single View dated 09/04/2019; Chest Sin gle View dated 08/31/2019; Chest Pa And Lat (2 Views) dated 08/28/2019 FINDINGS: Portable technique limits examination quality. Moderate bilateral pulmonary opacities are noted likely representing pulmonary edema or pneumonia. Mo derate cardiomegaly seen. No displaced fractures. IMPRESSION: Moderate CHF versus volume overload suspected.
[2019-10-21] MEDS ORDERED: NA CHLORIDE 0.9% 0 ML ONE ×2 (12:44→15:28)
[2019-10-21 12:46] LABS: Absolute Lymphocytes (CBC) 2.5 K/uL (0.7-4.9); Basophils % 0.2 % (0-1.3); Hematocrit 44.2 % (39.6-49.0); MPV 8.7 fL (7.6-11.3)
[2019-10-21] MEDS ORDERED: AZITHROMYCIN IV 500 MG in NA CHLORIDE 0.9% 250 ML IVPB ONE (13:00)
[2019-10-21 13:02] LABS: ALT/SGPT 20 U/L (12-78); AST/SGOT 20 U/L (15-37); Albumin 3.5 g/dL (3.4-5.0); Alkaline Phosphatase 66 U/L (45-117); BUN Blood Urea Nitrogen 21 mg/dL (7-18); Bicarbonate 26 mmol/L (21-32); Bilirubin Direct 0.2 mg/dL (0-0.2); Bilirubin Total 0.4 mg/dL (0.2-1.0); CKMB Creatine Kinase MB < 1.0 ng/mL (0.3-3.6); Creatine Phosphokinase 40 U/L (39-308); Glucose Level 144 mg/dL (74-106); Lipase 270 U/L (73-393); Magnesium 1.9 mg/dL (1.8-2.4); NT PRO-BNP 1289 pg/mL (<450); Protein, Total 7.9 g/dL (6.4-8.2); Sodium Level 141 mmol/L (136-145); Troponin (Emerg Dept Use Only) < 0.02 ng/mL (0.0-0.045)
[2019-10-21 13:18] LABS: Protime INR 1.17
[2019-10-21 13:25] LABS: Blood Gas Oxyhemoglobin 96.3 % (94-97); Blood O2 Saturation 97.9 % (92-98.5)
--- NOTE | 2019-10-21 14:39 | EDPHYS ---
Physician Documentation [facility] Name: Luiz Jeffery Age: 74 yrs Sex: Male : 1945 Arrival Date: 10/21/2019 Time: 12:18 Bed 3 Private MD: ED Physician Tom Longo HPI: 10/21 14:34 This 74 yrs old Male presents to ER via EMS with complaints of Respiratory ma2 Distress. 14:34 The patient has shortness of breath at rest. Onset: The symptoms/episode began/occurred ma2 gradually, 6 hour(s) ago. Associated signs and symptoms: Pertinent positives: non-productive cough, Pertinent negatives: chest pain, dizziness, fever, loss of consciousness, numbness in extremities, visual changes. Severity of symptoms: At their worst the symptoms were moderate in the emergency department the symptoms are unchanged. The patient has not experienced similar symptoms in the past. Historical: - Allergies: 12:24 No Known Allergies; em - Home Meds: 12:24 albuterol sulfate inhalation Inhl [Active]; aspirin 81 mg Oral TbEC 1 tab once daily em [Active]; fluticasone propionate (bulk) 100 % miscellaneous powd [Active]; pantoprazole 40 mg Oral TbEC 1 tab once daily [Active]; prednisone 20 mg Oral tab 0.5 tab 2 times per day [Active]; tamsulosin 0.4 mg Oral cp24 1 cap once daily [Active]; Linzess 145 mcg Oral cap 1 cap once daily [Active]; ropinirole 0.25 mg Oral tab 1 tab [Active]; simvastatin 20 mg Oral tab 1 tab once daily [Active]; Spiriva Respimat 2.5 mcg/actuation inhalation mist 2 puffs once daily [Active]; Spiriva with HandiHaler inhalation [Active]; spironolactone 50 mg Oral tab 1 tab once daily [Active]; Spironolactone Oral [Active]; Ventolin Rotahaler/Rotacaps Inhl [Active]; - PMHx: 12:24 Atrial Fib; CHF; COPD; Hyperlipidemia; Myocardial infarction; esophageal cancer; em - PSHx: 12:24 Heart stents; em - Immunization history:: Adult Immunizations unknown. - Social history:: Smoking status: unknown Patient/guardian denies using alcohol, street drugs, The patient lives with family. - Ebola Screening: : Patient negative for fever greater than or equal to 101.5 degrees Fahrenheit, and additional compatible Ebola Virus Disease symptoms Patient denies exposure to infectious person Patient denies travel to an Ebola-affected area in the 21 days before illness onset No symptoms or risks identified at this time. - Family history:: not pertinent. ROS: 14:34 Constitutional: Negative for fever, chills, and weight loss. ma2 14:34 All other systems are negative. Exam: 14:34 Constitutional: This is a well developed, well nourished patient who is awake, alert, ma2 and in no acute distress. Head/Face: Normocephalic, atraumatic. Eyes: Pupils equal round and reactive to light, extra-ocular motions intact. Lids and lashes normal. Conjunctiva and sclera are non-icteric and not injected. Cornea within normal limits. Periorbital areas with no swelling, redness, or edema. ENT: Nares patent. No nasal discharge, no septal abnormalities noted. Tympanic membranes are normal and external auditory canals are clear. Oropharynx with no redness, swelling, or masses, exudates, or evidence of obstruction, uvula midline. Mucous membranes moist. Neck: Trachea midline, no thyromegaly or masses palpated, and no cervical lymphadenopathy. Supple, full range of motion without nuchal rigidity, or vertebral point tenderness. No Meningismus. Chest/axilla: Normal chest wall appearance and motion. Nontender with no deformity. No lesions are appreciated. Cardiovascular: Regular rate and rhythm with a normal S1 and S2. No gallops, murmurs, or rubs. Normal PMI, no JVD. No pulse deficits. Abdomen/GI: Soft, non-tender, with normal bowel sounds. No distension or tympany. No guarding or rebound. No evidence of tenderness throughout. 14:34 Respiratory: moderate respiratory distress is noted, severe repiratory distress is noted, Respirations: labored breathing, prolonged exhalation, Breath sounds: bronchial sounds, wheezing: Respiratory rate: 40 Vital Signs: 12:18 Pulse 134; Resp 34; Temp 99.0(O); Pulse Ox 88% on Non-rebreather mask; em 12:18 BP 101 / 70; Weight 99.79 kg; em 13:30 BP 93 / 64; Pulse 103; Resp 28; Pulse Ox 99% on BiPAP; em 14:53 BP 95 / 63; Pulse 111; Resp 27; Pulse Ox 99% on BiPAP; em 16:00 BP 122 / 78; Pulse 109; Resp 18; Pulse Ox 99% on 100% BiPAP; rv 17:00 BP 112 / 82; Pulse 106; Resp 18; Pulse Ox 100% on 100% BiPAP; rv 18:00 BP 109 / 85; Pulse 102; Resp 19; Pulse Ox 99% on 100% BiPAP; rv 19:14 BP 126 / 69; Pulse 101; Resp 18; Pulse Ox 98% on 100% BiPAP; rv MDM: 12:20 Patient medically screened. ma2 14:34 Differential diagnosis: CHF exacerbation, reactive airway disease. Antibiotic ma2 administration: Data reviewed: vital signs, nurses notes. Counseling: I had a detailed discussion with the patient and/or guardian regarding: the historical points, exam findings, and any diagnostic results supporting the discharge/admit diagnosis, the presence of at least one elevated blood pressure reading (>120/80) during this emergency department visit, the need for outpatient follow up. Response to treatment: the patient's symptoms have markedly improved after treatment. 14:39 ED course: hr is 100 now down from 140 bpm, no rate control intervention medication ma2 done . 10/21 12:22 Order name: Blood Culture Adult (2) dc2 10/21 12:22 Order name: BMP; Complete Time: 13:30 dc2 10/21 12:22 Order name: CBC with Diff; Complete Time: 13:30 10/21 12:22 Order name: Ckmb; Complete Time: 13:30 10/21 12:22 Order name: CPK; Complete Time: 13:30 10/21 12:22 Order name: D-Dimer; Complete Time: 13:30 10/21 12:22 Order name: Hepatic Function; Complete Time: 13:30 10/21 12:22 Order name: Lipase; Complete Time: 13:30 dc2 10/21 12:22 Order name: Magnesium; Complete Time: 13:30 dc2 10/21 12:22 Order name: NT PRO-BNP; Complete Time: 13:30 dc10/21 12:22 Order name: PT-INR; Complete Time: 13:30 10/21 12:22 Order name: Ptt, Activated; Complete Time: 13:30 dc2 10/21 12:22 Order name: Troponin (emerg Dept Use Only); Complete Time: 13:30 dc2 10/21 12:23 Order name: Flu; Complete Time: 13:30 dc2 10/21 12:22 Order name: XRAY CXR (1 view); Complete Time: 13:30 dc2 10/21 12:29 Order name: Lactate; Complete Time: 13:30 iw 10/21 12:34 Order name: Procalcitonin; Complete Time: 13:30 em 10/21 12:34 Order name: Urine Microscopic Only em 10/21 12:47 Order name: ABG; Complete Time: 15:15 dc2 10/21 12:47 Order name: BIPAP dc2 10/21 12:51 Order name: Glucose, Ancillary Testing; Complete Time: 13:30 EDMS 10/21 14:57 Order name: Thorax Wo Con EDMS 10/21 14:59 Order name: CBC with Automated Diff EDMS 10/21 14:59 Order name: CBC with Automated Diff EDMS 10/21 14:59 Order name: Comprehensive Metabolic Panel EDMS 10/21 14:59 Order name: Comprehensive Metabolic Panel EDMS 10/21 14:59 Order name: Troponin I EDMS 10/21 14:59 Order name: Troponin I EDMS 10/21 14:59 Order name: Troponin I EDMS 10/21 16:18 Order name: Lactate Sepsis 2 HR Follow-up EDMS 10/21 12:22 Order name: EKG; Complete Time: 12:25 dc2 10/21 12:22 Order name: Cardiac monitoring; Complete Time: 12:33 dc2 10/21 12:22 Order name: EKG - Nurse/Tech; Complete Time: 12:33 dc2 10/21 12:22 Order name: IV Saline Lock; Complete Time: 12:33 dc2 10/21 12:22 Order name: Labs collected and sent; Complete Time: 12:33 dc2 10/21 12:22 Order name: O2 Per Protocol; Complete Time: 12:33 dc2 10/21 12:22 Order name: O2 Sat Monitoring; Complete Time: 12:33 dc2 10/21 12:34 Order name: Accucheck; Complete Time: 12:34 em 10/21 12:34 Order name: IV Saline Lock - Large Bore; Complete Time: 12:34 em 10/21 12:34 Order name: Urine Dipstick-Ancillary (obtain specimen); Complete Time: 07:14 em 10/21 14:59 Order name: CONS Pharmacy Consult EDMS Administered Medications: 12:18 Drug: Phenergan 12.5 mg Route: IVP; Site: right antecubital; em 12:30 Follow up: Response: No adverse reaction; Marked relief of symptoms; Nausea is decreasedem 12:35 Drug: Magnesium Sulfate 2 grams Route: IVPB; Infused Over: 2 hrs; Site: right aa5 antecubital; 19:19 Follow up: IV Status: Completed infusion rv 12:42 Drug: NS 0.9% 1000 ml Route: IV; Rate: 200 ml/hr; Site: right antecubital; em 19:19 Follow up: IV Status: Infusion continued upon admission rv 12:50 Drug: Rocephin 1 grams Route: IV; Rate: calculated rate; Site: right antecubital; aa5 19:19 Follow up: IV Status: Completed infusion rv 13:00 Drug: AtroVENT Aerosol 0.5 mg {Note: administered by RT.} Route: Inhalation; aa5 13:00 Drug: Xopenex 1.25 mg {Note: administered by RT .} Route: Inhalation; aa5 13:02 Drug: AZITHromycin 500 mg Route: IVPB; Infused Over: 1 hrs; Site: right antecubital; em 19:19 Follow up: IV Status: Completed infusion rv 13:20 Drug: AtroVENT Aerosol 0.5 mg {Note: administered by RT .} Route: Inhalation; aa5 13:40 Drug: AtroVENT Aerosol 0.5 mg {Note: administered by RT.} Route: Inhalation; aa5 15:50 Drug: Lasix 40 mg Route: IVP; Site: right upper arm; aa5 19:18 Follow up: Response: No adverse reaction rv 15:50 Drug: NS 0.9% 500 ml Route: IV; Rate: 1 bolus; Site: right upper arm; aa5 16:20 Follow up: IV Status: Completed infusion; IV Intake: 500ml aa5 19:18 Follow up: IV Status: Completed infusion; IV Intake: 500ml rv 10/22 07:19 Follow up: Completed at 1620 not 1918. aa5 Disposition: 10/21/19 14:38 Hospitalization ordered by Radha Ferrara for Inpatient Admission. Preliminary diagnosis are Chronic obstructive pulmonary disease with (acute) exacerbation, Tachycardia, unspecified, Atrial fibrillation and flutter, Acute on chronic systolic (congestive) heart failure. - Bed requested for Telemetry/MedSurg (Inpatient). - Status is Inpatient Admission. jd3 - Condition is Critical. - Problem is new. - Symptoms are unchanged. UTI on Admission? No Signatures: Dispatcher [employer] EDAllyson Zelaya RN RN Tru Sepulveda RN RN Summer Blakely RN JACQUELINE aa5 Enrique Walden RN RN jd3 Alzahri, Mohammad, MD MD ma2 Vicente, Ronaldo RN rv Corrections: (The following items were deleted from the chart) 10/21 14:53 12:24 Home Meds: furosemide 20 mg Oral tab 1 tab once daily; em em 14:53 12:24 Home Meds: Furosemide Oral; em em 14:53 12:24 Home Meds: Potassium Chloride Oral; em em 18:10 14:38 Hospitalization Ordered by Radha Ferrara MD for Inpatient Admission. Preliminary dw diagnosis is Chronic obstructive pulmonary disease with (acute) exacerbation; Tachycardia, unspecified; Atrial fibrillation and flutter; Acute on chronic systolic (congestive) heart failure. Bed requested for Telemetry/MedSurg (Inpatient). Status is Inpatient Admission. Condition is Critical. Problem is new. Symptoms are unchanged. UTI on Admission? No. ma2 20:04 18:10 10/21/2019 14:38 Hospitalization Ordered by Rahda Ferrara MD for Inpatient jd3 Admission. Preliminary diagnosis is Chronic obstructive pulmonary disease with (acute) exacerbation; Tachycardia, unspecified; Atrial fibrillation and flutter; Acute on chronic systolic (congestive) heart failure. Bed requested for Telemetry/MedSurg (Inpatient). Status is Inpatient Admission. Condition is Critical. Problem is new. Symptoms are unchanged. UTI on Admission? No. dw
--- NOTE | 2019-10-21 14:39 | ER ---
Nurse's Notes [facility] Name: Luiz Jeffery Age: 74 yrs Sex: Male : 1945 Arrival Date: 10/21/2019 Time: 12:18 Bed 3 Private MD: Diagnosis: Chronic obstructive pulmonary disease with (acute) exacerbation;Tachycardia, unspecified;Atrial fibrillation and flutter;Acute on chronic systolic (congestive) heart failure Presentation: 10/21 12:18 Presenting complaint: EMS states: called out for respiratory distress, coughing up em blood, was 70% on 4 LPM at home, en route given A\T\A x 2, vomited and given Zofran, BP 160/92 manual. Transition of care: patient was not received from another setting of care. Onset of symptoms was October 21, 2019. Risk Assessment: Do you want to hurt yourself or someone else? Patient reports no desire to harm self or others. Initial Sepsis Screen: Does the patient meet any 2 criteria? RR > 20 per min. HR > 90 bpm. Does the patient have a suspected source of infection? Yes: Productive cough/pneumonia. Care prior to arrival: Medication(s) given: Albuterol Neb x 2, Atrovent Neb x 2, zofran 4 mg, Solu-Medrol 125 mg. 12:18 Method Of Arrival: EMS: [facility] em 12:18 Acuity: EMELINA 2 em Triage Assessment: 19:17 General: Appears in no apparent distress. uncomfortable. Respiratory: Onset: The rv symptoms/episode began/occurred gradually, the patient has moderate shortness of breath. Historical: - Allergies: 12:24 No Known Allergies; em - Home Meds: 12:24 albuterol sulfate inhalation Inhl [Active]; aspirin 81 mg Oral TbEC 1 tab once daily em [Active]; fluticasone propionate (bulk) 100 % miscellaneous powd [Active]; pantoprazole 40 mg Oral TbEC 1 tab once daily [Active]; prednisone 20 mg Oral tab 0.5 tab 2 times per day [Active]; tamsulosin 0.4 mg Oral cp24 1 cap once daily [Active]; Linzess 145 mcg Oral cap 1 cap once daily [Active]; ropinirole 0.25 mg Oral tab 1 tab [Active]; simvastatin 20 mg Oral tab 1 tab once daily [Active]; Spiriva Respimat 2.5 mcg/actuation inhalation mist 2 puffs once daily [Active]; Spiriva with HandiHaler inhalation [Active]; spironolactone 50 mg Oral tab 1 tab once daily [Active]; Spironolactone Oral [Active]; Ventolin Rotahaler/Rotacaps Inhl [Active]; - PMHx: 12:24 Atrial Fib; CHF; COPD; Hyperlipidemia; Myocardial infarction; esophageal cancer; em - PSHx: 12:24 Heart stents; em - Immunization history:: Adult Immunizations unknown. - Social history:: Smoking status: unknown Patient/guardian denies using alcohol, street drugs, The patient lives with family. - Ebola Screening: : Patient negative for fever greater than or equal to 101.5 degrees Fahrenheit, and additional compatible Ebola Virus Disease symptoms Patient denies exposure to infectious person Patient denies travel to an Ebola-affected area in the 21 days before illness onset No symptoms or risks identified at this time. - Family history:: not pertinent. Screenin:00 Abuse screen: Denies threats or abuse. Nutritional screening: No deficits noted. aa5 Tuberculosis screening: Possible symptoms: recent bloody sputum. Fall Risk None identified. Assessment: 12:18 General: Appears uncomfortable, Behavior is cooperative. Pain: Denies pain. Neuro: aa5 Level of Consciousness is awake, alert, obeys commands, Oriented to person, place, time, situation, Adjunct English Instructor are weak bilaterally Moves all extremities. Speech is normal, Facial symmetry appears normal. Cardiovascular: Denies chest pain, Heart tones S1 S2 present Rhythm is atrial fibrillation with rapid ventricular response. Respiratory: Reports shortness of breath at rest cough that is productive, that is bloody in color Airway is patent Respiratory effort is labored, Respiratory pattern is tachypnea Breath sounds are diminished bilaterally. GI: Abdomen is obese, Bowel sounds present X 4 quads. Abd is soft and non tender X 4 quads. Reports nausea, vomiting, Pt currently vomiting gastric contents. : No signs and/or symptoms were reported regarding the genitourinary system. EENT: No signs and/or symptoms were reported regarding the EENT system. Derm: Skin is dry, Skin is mottled, Skin temperature is cool. Musculoskeletal: Range of motion: intact in all extremities. 12:45 Reassessment: Pt placed on Bi-PAP by RT . aa5 12:50 Reassessment: Patient is alert, oriented x 3, equal unlabored respirations, skin aa5 warm/dry/pink. Patient states feeling better. 13:00 Reassessment: Bi-PAP settings: IPAP 8, EPAP 4, RR 14, and 70% O2. . aa5 13:30 Reassessment: Patient is alert, oriented x 3, equal unlabored respirations, skin aa5 warm/dry/pink. Pt's family at bedside. . 14:00 Reassessment: reports BiPAP is helping Patient states feeling better. Patient states em symptoms have improved. 15:22 Reassessment: Patient appears in no apparent distress at this time. taken off BiPAP for em CT, placed on nonrebreather at 15 LPM. 15:50 Reassessment: Repeat lactate drawn by brain wave technician and sent to lab . aa5 19:17 Reassessment: Patient appears in no apparent distress at this time. Patient and/or rv family updated on plan of care and expected duration. Pain level reassessed. Patient is alert, oriented x 3, equal unlabored respirations, skin warm/dry/pink. Patient denies pain at this time. Patient states feeling better. Patient states symptoms have improved. Vital Signs: 12:18 Pulse 134; Resp 34; Temp 99.0(O); Pulse Ox 88% on Non-rebreather mask; em 12:18 BP 101 / 70; Weight 99.79 kg; em 13:30 BP 93 / 64; Pulse 103; Resp 28; Pulse Ox 99% on BiPAP; em 14:53 BP 95 / 63; Pulse 111; Resp 27; Pulse Ox 99% on BiPAP; em 16:00 BP 122 / 78; Pulse 109; Resp 18; Pulse Ox 99% on 100% BiPAP; rv 17:00 BP 112 / 82; Pulse 106; Resp 18; Pulse Ox 100% on 100% BiPAP; rv 18:00 BP 109 / 85; Pulse 102; Resp 19; Pulse Ox 99% on 100% BiPAP; rv 19:14 BP 126 / 69; Pulse 101; Resp 18; Pulse Ox 98% on 100% BiPAP; rv ED Course: 12:18 Patient arrived in ED. em 12:18 Patient has correct armband on for positive identification. Placed in gown. Bed in low aa5 position. Call light in reach. Side rails up X2. telemetry monitor on. Pulse ox on. NIBP on. 12:18 Arm band placed on. aa5 12:20 Tom Longo MD is Attending Physician. ma2 12:20 Triage completed. em 12:20 Missed attempt(s): 20 gauge in right antecubital area. Bleeding controlled, band aid aa5 applied, catheter tip intact. 12:25 Missed attempt(s): 20 gauge in right Bleeding controlled, band aid applied, catheter aa5 tip intact. 12:25 Maintain EMS IV. Dressing intact. Site clean \T\ dry. Gauge \T\ site: 20 G to R AC. aa 5 12:28 Initial lab(s) drawn, by open hearth furnace laborer, sent to lab. First set of blood cultures drawn by aa5 lab staff. 12:30 Second set of blood cultures drawn by nj. aa5 12:35 XRAY CXR (1 view) In Process Unspecified. EDMS 12:42 Tru Sepulveda RN is Primary Nurse. em 14:37 Radha Ferrara MD is Hospitalizing Provider. ma2 15:07 Radiology exam delayed due to pt on by ludy becerra to call when ready. bq 15:32 CT completed. Patient tolerated procedure well. Patient moved back from CT. mw3 15:50 Inserted saline lock: 22 gauge in right upper arm, using aseptic technique. Blood aa5 collected. Inserted by Devon Sheikh brain wave technician. 19:00 Report given to JACQUELINE Nunez. aa5 19:18 No provider procedures requiring assistance completed. Patient admitted, IV remains in rv place. Administered Medications: 12:18 Drug: Phenergan 12.5 mg Route: IVP; Site: right antecubital; em 12:30 Follow up: Response: No adverse reaction; Marked relief of symptoms; Nausea is decreasedem 12:35 Drug: Magnesium Sulfate 2 grams Route: IVPB; Infused Over: 2 hrs; Site: right aa5 antecubital; 19:19 Follow up: IV Status: Completed infusion rv 12:42 Drug: NS 0.9% 1000 ml Route: IV; Rate: 200 ml/hr; Site: right antecubital; em 19:19 Follow up: IV Status: Infusion continued upon admission rv 12:50 Drug: Rocephin 1 grams Route: IV; Rate: calculated rate; Site: right antecubital; aa5 19:19 Follow up: IV Status: Completed infusion rv 13:00 Drug: AtroVENT Aerosol 0.5 mg {Note: administered by RT.} Route: Inhalation; aa5 13:00 Drug: Xopenex 1.25 mg {Note: administered by RT .} Route: Inhalation; aa5 13:02 Drug: AZITHromycin 500 mg Route: IVPB; Infused Over: 1 hrs; Site: right antecubital; em 19:19 Follow up: IV Status: Completed infusion rv 13:20 Drug: AtroVENT Aerosol 0.5 mg {Note: administered by RT .} Route: Inhalation; aa5 13:40 Drug: AtroVENT Aerosol 0.5 mg {Note: administered by RT.} Route: Inhalation; aa5 15:50 Drug: Lasix 40 mg Route: IVP; Site: right upper arm; aa5 19:18 Follow up: Response: No adverse reaction rv 15:50 Drug: NS 0.9% 500 ml Route: IV; Rate: 1 bolus; Site: right upper arm; aa5 16:20 Follow up: IV Status: Completed infusion; IV Intake: 500ml aa5 19:18 Follow up: IV Status: Completed infusion; IV Intake: 500ml rv 10/22 07:19 Follow up: Completed at 1620 not 1918. aa5 Intake: 10/21 16:20 IV: 500ml; Total: 500ml. aa5 Outcome: 14:38 Decision to Hospitalize by Provider. ma2 19:18 Admitted to Med/surg accompanied by tech, via stretcher, room 213, with oxygen, with rv chart. 19:18 Condition: improved 19:18 Instructed on the need for admit. 20:04 Patient left the ED. jd3 Signatures: Dispatcher [employer] EDMS Devon Sheikh Betty bq Munoz, Edgar, RN RN em Summer Blakely RN RN aa5 Enrique Walden RN RN jd3 Tom Longo MD MD ma2 Danielle Romeo mw3 Honorio Alvarado RN RN rv Corrections: (The following items were deleted from the chart) 14:53 12:24 Home Meds: furosemide 20 mg Oral tab 1 tab once daily; em em 14:53 12:24 Home Meds: Furosemide Oral; em em 14:53 12:24 Home Meds: Potassium Chloride Oral; em em 15: 12:18 Presenting complaint: EMS states: called out for respiratory distress, coughing em up blood, was 70% on 4 LPM at home, on route given A\T\A x 2, vomited and given Zofran, BP 160/92 manual em 15:56 15:55 Repeat lab(s) drawn. by me, sent [place]. [place] [id number] 16:48 15:56 Repeat lab(s) drawn. by me, sent to lab. [facility] aa5 16:51 15:56 Inserted saline lock: 22 gauge in right upper arm, using aseptic technique. Blood aa5 collected. jb1 10/22 07:10/21 19:18 IV Status: Completed infusion; IV Intake: 500ml rv aa5 10/22 07:19 07:19 . aa aa5
--- NOTE | 2019-10-21 14:59 | P.HP ---
Certification for Inpatient With expected LOS: >2 Midnights Practitioner: I am a practitioner with admitting privileges, knowledge of patient current condition, hospital course, and medical plan of care. Services: Services provided to patient in accordance with Admission requirements found in Title 42 Section 412.3 of the Code of Federal Regulations Patient History Date of Service: 10/21/19 Reason for admission: Shortness of breath History of Present Illness: Mr. Jeffery is 74y/o male with significant medical history including diastolic heart failure, COPD dependent on 2 L nasal cannula who presented to the ER with complaints of worsening shortness of breath. Patient is currently on BIPAP, making it difficult to obtain history. He however reported that he has been short of breath for > a year. He has had limited mobility due to dyspnea. His shortness of breath worsened this morning, prompting his visitation to the ER. Patient has had productive cough with yellowish sputum. He denies any subjective fever. Patient reports drinking 3-4 L of fluid daily at home and not adhering to a low- salt diet. He reports compliance with medications. Allergies No Known Allergies Allergy (Verified 03/27/18 12:09) Home medications list reviewed: No (Not available) Home Medications: Aspirin [Low Dose Aspirin EC] 81 mg PO BEDTIME 12/22/14 Pantoprazole [Protonix Tab*] 40 mg PO [id number] 12/22/14 Simvastatin 20 mg PO BEDTIME 12/22/14 Spironolactone [Aldactone] 50 mg PO DAILY 12/22/14 Furosemide 20 mg PO BID 06/07/17 Fluticasone [Flonase 50MCG Nasal Parrish*] 2 sprays NS PRN PRN 03/27/18 Ropinirole HCl [Requip*] 1 tab PO BEDTIME 03/27/18 Albuterol Sulfate [Ventolin Hfa] 2 inh IH QIDP PRN 08/27/19 Cholecalciferol (Vitamin D3) [Vitamin D3] 1 cap PO EVERY 7TH DAY 08/27/19 Linaclotide [Linzess] 145 mcg PO PRN PRN 08/27/19 Potassium Chloride 20 meq PO DAILY 08/27/19 Tamsulosin HCl 0.4 mg PO DAILY 08/27/19 Apixaban [Eliquis *] 2.5 mg PO BID #60 tablet 08/31/19 Ondansetron [Zofran (Odt)*] 1 tab PO Q4H PRN 08/31/19 Mometasone/Formoterol [Dulera 100 Mcg/5 Mcg Inhaler] 2 puff IH DAILY 09/05/19 Metoprolol Tartrate [Lopressor] 25 mg PO BID #60 tab 09/07/19 - Past Medical/Surgical History Diabetic: No -: CHF, systolic dysfunction -: COPD -: Chronic atrial fibrillation not on chronic anti coagulation therapy -: HTN -: CAD with prior stent -: Hyperlipidemia -: History of esophageal cancer -: GERD -: BPH -: Restless leg syndrome -: Exploratory esophageal surgery (February 2013) -: Esophageal cancer resection (March 2013) -: Esophageal ablation (June 28, 2013) -: heart stents -: catracho cataract Psychosocial/ Personal History: Patient lives at home. - Family History Father -: Heart disease, Other (see notes) Notes: Heart attack Mother -: Heart disease, Other (see notes) Notes: CHF Brother -: Heart disease Notes: MD X2 - Social History Alcohol use: No CD- Drugs: No Caffeine use: Yes Review of Systems 10-point ROS is otherwise unremarkable General: Chills, Weakness Respiratory: Cough, Shortness of Breath, SOB with Excertion, Sputum, Wheezing Cardiovascular: Orthopnea, Paroxysmal Noc. Dyspnea, Edema Physical Examination - Vital Signs Temperature: 99 F Blood Pressure: 101/70 Pulse: 134 Respirations: 24 Pulse Ox (%): 88 - Physical Exam General: Alert, Moderate distress, Obese HEENT: Atraumatic, PERRLA, Mucous membr. moist/pink, EOMI, Sclerae nonicteric Neck: Supple, 2+ carotid pulse no bruit, JVD distended Respiratory: Diminished, Crackles/rales, Inspiratory wheezes, Rhonchi/gurgles Cardiovascular: Edema, Abnormal pulses, Irregular heart rate/rhythm Gastrointestinal: Normal bowel sounds, No ascites (Our), No tenderness Musculoskeletal: Clubbing, Tenderness Integumentary: Rash(es) Neurological: Normal gait, Normal speech, Normal strength at 5/5 x4 extr, Normal tone, Normal affect Lymphatics: No axilla or inguinal lymphadenopathy - Studies Laboratory Data (last 24 hrs) 10/21/19 13:00: PT 13.7 H, INR 1.17, APTT 23.4 L 10/21/19 12:28: WBC 19.5 H, Hgb 14.1, Hct 44.2, Plt Count 227 10/21/19 12:28: Sodium 141, Potassium 4.0, BUN 21 H, Creatinine 1.63 H, Glucose 144 H, Magnesium 1.9, Total Bilirubin 0.4, AST 20, ALT 20, Alkaline Phosphatase 66, Lipase 270 Microbiology Data (last 24 hrs): 10/21/19 12:45 Nasopharnyx Influenza Type A Antigen Screen - Final 10/21/19 12:45 Nasopharnyx Influenza Type B Antigen Screen - Final Imagings Data: CT chest IMPRESSION: Left lower lobe airspace opacification could represent pneumonia or aspiration pneumonitis Assessment and Plan - Plan Mr. Jeffery is 74 y/o male with multiple comorbidities presenting with respiratory distress. #Acute respiratory distress-is multi factorial. COPD versus CHF versus Hcap versus aspiration pneumonia. -maintain sats greater than 90% -continue BiPAP or NRM and wean off as tolerated. -treat underlying illness. -ABG with hypercapneic resp acidosis #Acute on chronic diastolic heart failure-preserved EF based on echo 08/2019. -patient is noncompliant with diet and fluid intake. -blood pressure is currently on the low side, will use diuretics cautiously. -trend troponin. -low salt intake, strict Is&Os and with restriction. #Septic shock present on admission secondary to suspected aspiration pneumonia- CT scan with opacification. Patient had MBS on previous admission. Meeting septic shock criteria with lactic acid of 7. procalcitonin wnl. - Blood and urine cultures obtained. -maintain MAP greater than 65. Monitor perfusion with a urine output. -will cover with broad-spectrum antibiotics. -trend lactic acid. -consult speech therapist #Lactic acidosis-multi factorial. Cannot rule out respiratory constipation. Next and highest at COPD exacerbation-patient is also oxygen dependent. -continue with Rupa treatments. Will consider adding steroids. - pulmonary toileting. #Diabetes mellitus-check hemoglobin A1c -BG AC and HS and cover with insulin sliding scale. #Atrial fibrillation with RVR-rate is currently controlled. -patient is on oral anti coagulation with Eliquis. Reports Compliance with medication. -had episodes of bloody streaked sputum home, not concerning at this time. -follow patient closely. #WILDER- prerenal in the setting of CHF & Septic shock - trend cr -avoid nephrotoxins DVT ppx- eliquis patient is full code. Plan to discharge in: Greater than 2 days - Advance Directives Does patient have a Living Will: No Does patient have a Durable POA for Healthcare: No - Code Status/Comfort Care Code Status Assessed: Yes Code Status: Full Code
[2019-10-21] MEDS ORDERED: FUROSEMIDE 40 MG/4 ML VIAL ONE (15:23)
--- NOTE | 2019-10-21 15:47 | RAD REPORT ---
EXAM DESCRIPTION: CT - Thorax Wo Con - 10/21/2019 3:27 pm CLINICAL HISTORY: cough COMPARISON: 2013 cat scan TECHNIQUE: Computed axial tomography of the chest was obtained. Contrast was not requested. All CT scans are performed using dose optimization technique as appropriate and may include automated exposure control or mA/KV adjustment according to patient size. FINDINGS: The evaluation of mediastinum, melany and vessels is limited secondary to lack of IV contras t administration. Moderate bilateral predominantly subpleural interstitial opacities consistent with pulmonary fibrosis . 5 centimeter airspace opacification posterior left lower lobe. No mediastinal or hilar lymphadenopathy is seen. A pleural effusion is not present. No pericardial effusion. Coronary arterial calcification Small to moderate hiatal hernia Cholelithiasis without gallbladder wall thickening IMPRESSION: Left lower lobe airspace opacification could represent pneumonia or aspiration pneumonit is
[2019-10-21] MEDS ORDERED: HOME MED 1 EA UNK (Linaclotide [Linzess] 145 MCG) PO PRN (20:21)
[2019-10-21] MEDS ORDERED: ATORVASTATIN 10 MG TAB PO SCH (21:00)
[2019-10-21] MEDS ORDERED: VANCOMYCIN 0 GM in NA CHLORIDE 0.9% 500 ML IVPB SCH (21:00)
[2019-10-21] MEDS ORDERED: METOPROLOL TAR 25 MG TAB PO SCH (21:00)
[2019-10-21] MEDS: ALBUTEROL 2.5 MG/3 ML NEB SOL NEB SCH (21:25)
[2019-10-21] MEDS: IPRATROPIUM BROM 0.5MG/2.5ML NEB SCH (21:25)
[2019-10-21] MEDS: ASPIRIN EC 81 MG TAB PO SCH (22:13)
[2019-10-21] MEDS: ROPINIROLE HCL 0.25 MG TAB PO SCH (22:13)
[2019-10-21] MEDS: APIXABAN 2.5 MG TABLET PO SCH (22:14)
[2019-10-21] MEDS ORDERED: VANCOMYCIN 1.75 GM in NA CHLORIDE 0.9% 500 ML IVPB SCH (23:00)
[2019-10-21] MEDS ORDERED: VANCOMYCIN 1 GM/VIAL ONE (23:02)
[2019-10-21] MEDS ORDERED: PIPER/TAZO/NS 3.375gm 6.750 GM/200 ML BAG ONE (23:02)
[2019-10-21] MEDS ORDERED: NA CHLORIDE 0.9% 500 ML ONE (23:07)
[2019-10-21] MEDS: PIPER/TAZO/NS 3.375gm 3.375 GM/100 ML BAG IVPB SCH (23:08)
[2019-10-22 01:44] VITALS: BMI 33.4
[2019-10-22] MEDS: IPRATROPIUM BROM 0.5MG/2.5ML NEB SCH (02:05)
[2019-10-22] MEDS: ALBUTEROL 2.5 MG/3 ML NEB SOL NEB SCH (02:05)
[2019-10-22] MEDS: PANTOPRAZOLE 40MG TABLET PO SCH (05:00)
[2019-10-22] MEDS: PIPER/TAZO/NS 3.375gm 3.375 GM/100 ML BAG IVPB SCH (05:00)
[2019-10-22 06:20] LABS: Absolute Lymphocytes (CBC) 0.5 K/uL (0.7-4.9); Basophils % 0.1 % (0-1.3); Hematocrit 35.8 % (39.6-49.0); Lymphocytes % 3.4 % (15.3-44.8); MPV 9.1 fL (7.6-11.3); RBC Red Blood Cell Count 4.13 M/uL (4.33-5.43)
[2019-10-22 06:29] LABS: Albumin 2.8 g/dL (3.4-5.0); Bilirubin Total 0.4 mg/dL (0.2-1.0); Potassium 4.1 mmol/L (3.5-5.1); Protein, Total 6.6 g/dL (6.4-8.2)
[2019-10-22] MEDS ORDERED: ALBUTEROL 2.5 MG/3 ML NEB SOL NEB PRN (07:29)
[2019-10-22] MEDS ORDERED: IPRATROPIUM BROM 0.5MG/2.5ML NEB PRN (07:30)
[2019-10-22] MEDS ORDERED: HOME MED 1 EA UNK (Cholecalciferol (Vitamin D3) [Vitamin D3] 1 CAP) PO SCH (07:30)
[2019-10-22 08:20] LABS: Blood Morphology Comment NOT SEEN (NOT SEEN); Platelet Estimate ADEQ; Urine White Blood Cell Casts OK
[2019-10-22] MEDS ORDERED: DULERA 100/5 (MOMETASONE/FORMOTEROL) INHALER IH SCH (08:45)
[2019-10-22] MEDS ORDERED: HOME MED 1 EA UNK (Cyanocobalamin (Vitamin B-12) [Vitamin B12] 2,500 MCG) PO SCH (09:00)
[2019-10-22] MEDS: METOPROLOL TAR 25 MG TAB PO SCH ×3 (09:00→21:00)
[2019-10-22] MEDS: APIXABAN 2.5 MG TABLET PO SCH ×2 (09:42→21:01)
[2019-10-22] MEDS: AMOX/K CLAV 500 MG TAB PO SCH ×2 (09:42→21:01)
[2019-10-22] MEDS: TAMSULOSIN 0.4 MG SR CAP PO SCH (09:42)
[2019-10-22] MEDS: MIDODRINE HCL 5 MG TABLET PO SCH ×3 (09:42→21:02)
[2019-10-22] MEDS: predniSONE 20 MG TAB PO SCH ×2 (09:42→21:02)
[2019-10-22] MEDS: CYANOCOBALAMIN 1,000 MCG TAB PO SCH (09:43)
--- NOTE | 2019-10-22 10:46 | RAD REPORT ---
EXAM DESCRIPTION: RAD - Chest Pa And Lat (2 Views) - 10/22/2019 10:03 am CLINICAL HISTORY: follow up COPD, shortness of breath COMPARISON: Chest Single View dated 10/21/2019; Chest Pa And Lat (2 Views) dated 09/07/2019 TECHNIQUE: Frontal and lateral views of the chest were obtained. FINDINGS: The lungs are fibrotic as a baseline with flattened diaphragm. Extensive interstitial opac ification is present improved from prior imaging. Heart size is decreased slightly. Vasculature wit hin normal limits. Fullness of the right side mediastinum has not changed from prior imaging. No pneu mothorax or large pleural effusion. No acute bony finding noted. No aortic abnormality. IMPRESSION: Lung parenchymal opacification has shown significant improvement from October 21.
--- NOTE | 2019-10-22 13:04 | PN ---
Date of Progress Note: 10/22/2019 Patient states he feels better as far as his breathing is concerned. However, talking to his , s he states one of the big problem necessitating a change in his medication was his frequent falling. So, the past week, the beta-florina was discontinued. He is still hypotensive. He refused the telem etry last night. However, discussion with him as he did accept it. Therefore, he will be monitored in the next 24 hours with increased activity level to see if the hypotension or whether cardiac arrhy thmia was causing or playing a part in his falls. HR/MODL Voice ID: [id number] Report ID: [id number]
--- NOTE | 2019-10-22 14:01 | EKG ---
Test Date: 2019-10-21 Test Time: 12:26:18 3Rd Grade Teacher: CHICO MEASUREMENT RESULTS: Intervals: Rate: 130 [place]: QRSD: 74 QT: 296 QTc: 435 [place]: P: [place]: QRS: -27 T: -28 INTERPRETIVE STATEMENTS: Atrial fibrillation with rapid ventricular response with premature ventricular or aberrantly conducted complexes Inferior infarct, age undetermined Abnormal ECG Compared to ECG 09/04/2019 18:57:55 Myocardial infarct finding now present Aberrant conduction of supraventricular beat(s) no longer present ST (T wave) deviation no longer present Possible ischemia no longer present Electronically Signed On 10-22-19 13:59:05 RN OR LPN by Lex Aguayo
[2019-10-22] MEDS ORDERED: HOME MED 1 EA UNK (Simvastatin [Simvastatin] 20 MG) PO SCH (21:00)
[2019-10-22] MEDS: ROPINIROLE HCL 0.25 MG TAB PO SCH (21:01)
[2019-10-22] MEDS: ASPIRIN EC 81 MG TAB PO SCH (21:02)
[2019-10-22] MEDS: ATORVASTATIN 10 MG TAB PO SCH (21:02)
[2019-10-23] MEDS: ACETAMINOPHEN 500 MG TAB PO PRN ×2 (03:03→09:19)
[2019-10-23] MEDS: PANTOPRAZOLE 40MG TABLET PO SCH (05:28)
[2019-10-23 06:20] LABS: Potassium 4.6 mmol/L (3.5-5.1)
--- NOTE | 2019-10-23 08:53 | RAD REPORT ---
EXAM DESCRIPTION: CT - Head angio - 10/23/2019 7:43 am CLINICAL HISTORY: Fall, head injury, possible LOC Headache, drowsiness, syncope COMPARISON: MAXILLOFACIAL W O CONTRAST dated 12/22/2014; HEAD BRAIN W O CONTRAST dated 12/22/2014 TECHNIQUE: CT angiography of the head was performed with MIPs. All CT scans are performed using dose optimization technique as appropriate and may include automated exposure control or mA/KV adjustment according to patient size. FINDINGS: No evidence of aneurysm is detected. No flow-limiting stenosis or vascular malformation id entified. Antegrade flow is seen in the vertebral arteries. The vertebral arteries are codominant. The visualized dural venous sinuses are patent. IMPRESSION: No significant flow abnormality is detected.
[2019-10-23] MEDS: AMOX/K CLAV 500 MG TAB PO SCH ×2 (09:19→20:42)
[2019-10-23] MEDS: APIXABAN 2.5 MG TABLET PO SCH (09:20)
[2019-10-23] MEDS: TAMSULOSIN 0.4 MG SR CAP PO SCH (09:20)
[2019-10-23] MEDS: predniSONE 20 MG TAB PO SCH ×2 (09:20→20:42)
[2019-10-23] MEDS: METOPROLOL TAR 25 MG TAB PO SCH ×2 (09:21→20:43)
[2019-10-23] MEDS: CYANOCOBALAMIN 1,000 MCG TAB PO SCH (09:21)
[2019-10-23] MEDS: MIDODRINE HCL 5 MG TABLET PO SCH ×3 (09:32→20:42)
--- NOTE | 2019-10-23 09:33 | RAD REPORT ---
EXAM DESCRIPTION: CT - [id number] - 10/23/2019 7:43 am CLINICAL HISTORY: Trauma, head and neck injury. Fall, head injury, possible LOC COMPARISON: Head C Spine Mpr Wo Con dated 08/27/2019; Neck Angio dated 10/23/2019; Head angio dated TECHNIQUE: Axial 5 mm thick images of the head were obtained. Axial 2 mm thick images of the cervical spine were obtained with sagittal and coronal reconstruction images generated and reviewed. All CT scans are performed using dose optimization technique as appropriate and may include automated exposure control or mA/KV adjustment according to patient size. FINDINGS: CT HEAD WITHOUT CONTRAST: No acute hemorrhage, hydrocephalus or extra-axial collection is identified.Mild generalized brain atr ophy is present with moderate periventricular and deep white matter chronic microvascular ischemic ch anges.Gliosis is seen involving the left frontal lobe, unchanged. The paranasal sinuses and right mastoid are clear.Trace fluid is seen in the left mastoid.The calvari um is intact. CT CERVICAL SPINE WITHOUT CONTRAST: No fracture or subluxation.Moderate mid and lower cervical degenerative changes.No prevertebral soft tissues swelling is identified. IMPRESSION: No acute intracranial or cervical spine findings.
--- NOTE | 2019-10-23 09:36 | RAD REPORT ---
EXAM DESCRIPTION: CT - Neck Angio - 10/23/2019 7:43 am CLINICAL HISTORY: Fall, head injury, possible LOC COMPARISON: Head C Spine Mpr Wo Con dated 08/27/2019Head C Spine Mpr Wo Con dated 10/23/2019; Head C Spine Mpr Wo Con dated 08/27/2019 TECHNIQUE: CT angiography of the neck vessels was performed with MIPs. All CT scans are performed using dose optimization technique as appropriate and may include automated exposure control or mA/KV adjustment according to patient size. FINDINGS: A left aortic arch is identified with 4 vessel configuration of the great vessels. No significant flow abnormality is seen of the common carotid bilaterally. Mild atheromatous plaquing is seen in both proximal internal carotid arteries. No significant interna l carotid artery stenosis identified. Normal flow is seen within both vertebral arteries. Trace fluid is seen in the inferior left mastoid air cell. IMPRESSION: No significant flow abnormality of the neck vessels is identified. Mild atheromatous plaquing both proximal internal carotid arteries.
--- NOTE | 2019-10-23 10:28 | EKG ---
Test Date: 2019-10-23 Test Time: 02:31:28 Kindergarten Teacher Assistant: RT-O MEASUREMENT RESULTS: Intervals: Rate: 110 [place]: QRSD: 82 QT: 360 QTc: 487 [place]: P: [place]: QRS: -22 T: -36 INTERPRETIVE STATEMENTS: Atrial fibrillation with rapid ventricular response with premature ventricular or aberrantly conducted complexes Abnormal ECG Compared to ECG 10/21/2019 12:26:18 Myocardial infarct finding no longer present Electronically Signed On 10-23-19 10:27:03 SHIPS OR BARGES LOADER by Mike Pacheco
--- NOTE | 2019-10-23 11:56 | CON ---
History Of Present Illness: Mr. Jeffery came to the hospital with dyspnea. He is found to be in pulmonary edema. Diuretics were re-established. They had been stopped for several days and he feels better and his chest x-ray has improved. His chest x-ray showed pulmonary edema. The patient has a difficult time staying on diuretics. Apparently, lot of physicians tell him to stop it because of r enal dysfunction because of underlying conditions and other problems, but he always returns to the [facility] with pulmonary edema when diuretics are stopped. He has chronic AFib, controlled heart rate w ith metoprolol. It might be better to consider controlling his heart rate with AV node ablation and a permanent pacemaker and then allowing him to have a paced rhythm all the time and avoid any drugs t hat lower his blood pressure. He has frequent falls. His falls all occur while he is in AFib with a heart rate that is normal or close to normal. There are no long pauses when he falls. He had 1 fal ling spell here in the hospital and the heart rate was in the 90s. Medications: His outpatient medications are albuterol; cholecalciferol; tamsulosin; simvastatin; rop inirole; aspirin; midodrine; prednisone; cyanocobalamin; Protonix; apixaban, a subtherapeutic dose; a nd Dulera. Social History: He does not smoke. He did in the past. Physical Examination: General: He is 5 feet 8 inches, 220 pounds, obese, alert, oriented, pleasant, not in distress. Ther e are raza on his right mu-ism from falling. Raza on his left arm from a fall. HEENT: Unremarkable. Lungs: Clear. Heart: Reveals a systolic murmur. Grade 1-2/6 ejection type. Abdomen: Soft. Extremities: Mild edema. Impression: The patient is volume overloaded and has a problem taking medicines to keep his heart ra te close to normal. I think an electrophysiology consult can be contemplated to see about dealing wi th his atrial fibrillation some other way perhaps an ablation to get him back in normal rhythm, perha ps an ablation of the AV node and a permanent pacemaker to let him fibrillator, but have the heart ra te completely controlled by the pacemaker rather than the medication. I think medications quickly tu rn into trouble from his dementia or causing hypotension. SH/MODL Voice ID: [id number] Report ID: [id number]
--- NOTE | 2019-10-23 20:02 | PN ---
Date of Progress Note: 10/23/2019 Post fall patient seems okay. He is quite dyspneic with minimal amount of exertion, seen by Cardiolo gy. Suspect with an exacerbation of CHF. The possibility of pacemaker insertion was considered. Re asonable alternative to present scenario as far as medication is concerned. We will discuss further with Cardiology and see whether he will be transferred and/or discharged and then referred more to e procedure. HR/MODL Voice ID: [id number] Report ID: [id number]
[2019-10-23] MEDS: ATORVASTATIN 10 MG TAB PO SCH (20:42)
[2019-10-23] MEDS: ROPINIROLE HCL 0.25 MG TAB PO SCH (20:42)
[2019-10-23] MEDS: APIXABAN 5 MG TABLET PO SCH (20:42)
[2019-10-23] MEDS ORDERED: APIXABAN 2.5 MG TABLET PO SCH (21:00)
[2019-10-23 23:51] VITALS: O2SAT 89
[2019-10-24] MEDS: PANTOPRAZOLE 40MG TABLET PO SCH (05:30)
[2019-10-24] MEDS: TAMSULOSIN 0.4 MG SR CAP PO SCH (08:57)
[2019-10-24] MEDS: AMOX/K CLAV 500 MG TAB PO SCH (08:57)
[2019-10-24] MEDS: CYANOCOBALAMIN 1,000 MCG TAB PO SCH (08:57)
[2019-10-24] MEDS: predniSONE 20 MG TAB PO SCH (08:58)
[2019-10-24] MEDS: MIDODRINE HCL 5 MG TABLET PO SCH ×2 (08:58→13:55)
[2019-10-24] MEDS: METOPROLOL TAR 25 MG TAB PO SCH (08:58)
[2019-10-24] MEDS: APIXABAN 5 MG TABLET PO SCH (08:58)
[2019-10-24] MEDS ORDERED: VITAMIN D3 1250 MCG PO SCH (09:00)
[2019-10-24 12:57] VITALS: BP 113/86; TEMP 97.9
--- NOTE | 2019-10-24 15:24 | PN ---
Date of Progress Note: 10/24/2019 Mr. Jeffery is 74, has chronic atrial fibrillation that we believe is causing some of his syncopal episode and recurrent episodes of congestive heart failure. He does not tolerate beta-blockers kishore use of hypotension and bradycardia. We have tried cardioversion before. We have tried Betapace befo re. I think he should be sent home today. His volume overload status has resolved. I will make arr angements for him to see Electrophysiology for an atrial fibrillation ablation with possible pacemake r placement and I could do this as an outpatient. The case was discussed with Dr. Foster. BUTCH/DOTTIE Voice ID: [id number] Report ID: [id number]
[2019-10-28] MEDS ORDERED: VITAMIN D3 1250 MCG PO SCH (09:00)
== END 2019-10-24 16:45 | disposition home or self-care (01) | DRG 291 ==
LOC: ER 12:16 → ERHOLD 14:57 → 2ND 19:45
PROVIDERS: ADMIT Family Medicine; ATTEND Hospitalist
PROC: 5A09457 Assistance with Respiratory Ventilation, 24-96 Consecutive Hours, Continuous Positive Airway Pressure (ICD-10-PCS; principal; 2019-10-21)
DX: I11.0 Hypertensive heart disease with heart failure (principal); J96.20 Acute and chronic respiratory failure, unspecified whether with hypoxia or hypercapnia; J69.0 Pneumonitis due to inhalation of food and vomit; N17.9 Acute kidney failure, unspecified; E87.2 Acidosis; I48.20 Chronic atrial fibrillation, unspecified; I50.33 Acute on chronic diastolic (congestive) heart failure; J44.9 Chronic obstructive pulmonary disease, unspecified; E78.5 Hyperlipidemia, unspecified; K21.9 Gastro-esophageal reflux disease without esophagitis; N40.0 Benign prostatic hyperplasia without lower urinary tract symptoms; E11.9 Type 2 diabetes mellitus without complications; G25.81 Restless legs syndrome; Z85.01 Personal history of malignant neoplasm of esophagus; Z79.01 Long term (current) use of anticoagulants; Z99.81 Dependence on supplemental oxygen
CPT/HCPCS: 36415; 70450; 70496; 70498; 71045; 71046; 71250; 72125; 80048; 80053; 80076; 82550; 82553; 82805; 82947; 83605; 83690; 83735; 83880; 84145; 84484; 85025; 85379; 85610; 85730; 87040; 87804; 92610; 93005; 94640; 94660; 96365; 96366; 96367; 96368; 96375; 99285; J0456; J0696; J1940; J2543; J3475; J7030; J7040; J7512; Q9967